=== PATIENT | female | born 1950 | race Caucasian/White ===

== ENCOUNTER 2020-08-03 13:27 | Outpatient (CLI) | payer MEDICARE, SELFPAY ==
--- NOTE | ~2020-08-03 | XR_ITS ---
EXAMINATION: XR chest 2V DATE: 08/03/2020 13:55 INDICATION: High-risk medicine use. Ulcerative colitis without complications. TECHNIQUE: Frontal and lateral views of the chest were obtained. COMPARISON: Chest single view 09/10/2004, CT abdomen and pelvis 08/03/2020 FINDINGS: A calcified left lung nodule and calcified hilar and mediastinal lymph nodes are consistent with old granulomatous disease. No pleural effusion or pneumothorax. The heart size is normal. There are prominent paracardial fat pads. IMPRESSION: 1. No acute cardiopulmonary disease. Reviewed, dictated and finalized at location A.
--- NOTE | ~2020-08-03 | CT_ITS ---
EXAMINATION: CT abdomen pelvis w con DATE: 08/03/2020 14:09 INDICATION: Left lower quadrant abdominal pain TECHNIQUE: Computed tomography (CT) of the abdomen and pelvis was performed with 100 cc Omnipaque 350 intravenous contrast. Automated exposure control and iterative reconstruction technique were employe d. Exam dose: 1377.24 mGy-cm total exam DLP. COMPARISON: 06/06/2005 CT abdomen FINDINGS: There is a calcified pulmonary granuloma in each lower lobe. There are calcified hepatic an d splenic granulomas. Heart size is mildly enlarged. No pericardial or pleural effusion. Hepatic steatosis. No hepatic space-occupying mass lesion is evident. The gallbladder is present. No bile duct or pancreatic duct dilatation. No pancreatic mass lesion or calcification. Normal splenic s ize. Normal morphology of the adrenal glands. No renal mass lesion is noted other than an approximately 1.3 cm exophytic cyst of the lower pole of the left kidney. No urinary tract calculus or hydroureteronephrosis is evident. There is atherosclerotic calcification of the abdominal aorta and branches but no abdominal aortic an eurysm. No intraperitoneal or retroperitoneal or pelvic mass lesion or adenopathy or ascites is evide nt. There is limited visualization of pelvic structures due to extensive streak artifact from bilateral h ip replacements. The urinary bladder is relatively evacuated and not optimally evaluated. Minimal diverticulosis of the colon. No bowel obstruction, bowel wall thickening, pneumatosis or intr aperitoneal free air. Diffuse osteopenia. Degenerative changes of the thoracic and lumbar spine including severe degenerati ve disc disease at L5-S1. IMPRESSION: Hepatic steatosis 1.3 cm exophytic cyst of lower pole of left kidney Minimal diverticulosis of the colon Reviewed, dictated and finalized at Location A. Reviewed, dictated and finalized at location B.
[2020-08-03 14:04] LABS: Estimated Glomerular Filt Rate 44
== END 2020-08-03 13:28 | disposition home or self-care (01) ==
PROVIDERS: PCP Internal Medicine; Visit Provider Internal Medicine Gastroenterology
DX: K51.90 Ulcerative colitis, unspecified, without complications (principal); M81.8 Other osteoporosis without current pathological fracture; K21.9 Gastro-esophageal reflux disease without esophagitis; R79.82 Elevated C-reactive protein (CRP); R10.32 Left lower quadrant pain; Z79.899 Other long term (current) drug therapy; K57.30 Diverticulosis of large intestine without perforation or abscess without bleeding; K76.0 Fatty (change of) liver, not elsewhere classified; N20.0 Calculus of kidney
CPT/HCPCS: 71046; 74177; Q9967

== ENCOUNTER 2020-10-03 19:38 | Emergency (ER) | payer MEDICARE, SELFPAY ==
--- NOTE | ~2020-10-03 | XR_ITS ---
EXAMINATION: XR chest 1V portable DATE: 10/03/2020 23:07 INDICATION: Shortness of breath and cough. COVID exposure. TECHNIQUE: frontal view of the chest was obtained. COMPARISON: Chest radiograph dated 08/03/2020 FINDINGS: The lungs remain clear with no focal airspace opacities, pulmonary edema, pleural effusion or pneumot horax. Calcified bilateral hilar and mediastinal lymph nodes consistent with old granulomatous diseas e. The cardiomediastinal silhouette is normal. IMPRESSION: 1. No acute cardiopulmonary disease. Reviewed, dictated and finalized at location A. K MAN
[2020-10-03 20:07] VITALS: BP 174/84; PULSE 99; RESP 17; TEMP 37.1; O2SAT 94
--- NOTE | 2020-10-03 20:10 | ECG_ITS ---
Measurements Intervals [place] Rate: 87 P: 55 IA: 188 QRS: 15 QRSD: 97 T: 31 QT: 352 QTc: 424 Interpretive Statements SINUS RHYTHM VOLTAGE CRITERIA FOR LVH BASELINE WANDER- II, III, AVL, AVF, V3-V6 BORDERLINE ECG Electronically Signed On 10-04-2020 7:03:53 SIGNAL REPAIRER by Amish Rodrigues D.O.
[2020-10-03 20:24] LABS: Basophils Percent Auto 0.2 % (0.2-1.2); Eosinophils Percent Auto 0.5 % (0-4.4); Hematocrit 35.6 % (37.0-47.0); Hemoglobin 11.7 g/dL (12.0-15.0); Immature Granulocyte Absolute 0.04 K/mm3 (0.00-0.031); Immature Granulocyte Percent A 0.7 % (0-0.5); Lymphocytes Absolute Auto 0.45 K/mm3 (0.9-3.2); Lymphocytes Percent Auto 7.6 % (18.3-44.2); Mean Corpuscular HGB Conc 32.9 g/dl (32-36); Mean Corpuscular Volume 97.3 fl (80-100); Mean Platelet Volume 8.4 fl (7.4-10.4); Monocytes Absolute Auto 0.4 K/mm3 (0.1-0.6); Monocytes Percent Auto 6.4 % (2.6-8.5); Neutrophils Percent Auto 84.6 % (45.5-73.1); Platelet Count Result 182 k/mm3 (150-375); Red Blood Count 3.66 M/mm3 (4.2-5.4); Red Cell Distribution Width 14.2 % (11.5-14.5); White Blood Count 5.9 K/mm3 (4.5-10.0)
[2020-10-03 20:53] LABS: Alanine Aminotransferase 39 U/L (4-35); Albumin Level 3.7 g/dL (3.5-5.1); Alkaline Phosphatase 111 U/L (38-126); Anion Gap 3 mmol/L (8-16); Aspartate Amino Transferase 52 U/L (14-36); Bilirubin,Total 0.2 mg/dL (0.2-1.3); Blood Urea Nitrogen 19 mg/dL (7-17); Calcium 8.5 mg/dL (8.4-10.2); Carbon Dioxide 27 mmol/L (22-30); Chloride 102 mmol/L (98-107); Estimated CRCL calculation 54 ml/min; Estimated Glomerular Filt Rate 55; Glucose 116 mg/dL (65-105); Potassium 4.8 mmol/L (3.4-5.0); Sodium 132 mmol/L (137-145)
[2020-10-03 22:34] VITALS: BP 142/79; PULSE 97; RESP 18; TEMP 37.2; O2SAT 95
[2020-10-03 23:11] VITALS: RESP 20
[2020-10-03 23:15] VITALS: BP 159/63; PULSE 95; RESP 19; O2SAT 91
--- NOTE | 2020-10-03 23:30 | ED.GENADULT ---
HPI - General Adult General Chief complaint: Fever Stated complaint: fever,covid exposure Time Seen by Provider: 10/03/20 22:59 Source: patient History of Present Illness HPI narrative: Patient is a 69 y/o female complaining of fever and cough starting 4-5 days ago. She states that her fever was up to 102.7. She took Tylenol, which helped with her fever. She has some dry cough and SOB. She had some midsternal chest pain 2 days ago, but no chest pain at this time. She states that her daughter who lives with her just tested positive for COVID. She had COVID test 2 days ago, but has not heard the results yet. Related Data Home Medications Medication Instructions Recorded Confirmed albuterol sulfate [Proventil HFA] INHALATION PRN 09/17/19 amitriptyline 25 mg PO HS 09/17/19 09/17/19 aspirin 81 mg PO DAILY 09/17/19 09/17/19 atenolol 50 mg PO DAILY 09/17/19 09/17/19 calcium carbonate [Calcium 600] 600 mg PO DAILY 09/17/19 09/17/19 conjugated estrogens [Premarin] mg 09/17/19 diclofenac sodium PO 09/17/19 fluticasone propionate [Flonase 1 spray INTRANASAL DAILY 09/17/19 09/22/19 Allergy Relief] folic acid 1 mg PO DAILY 09/17/19 09/17/19 lansoprazole 30 mg PO DAILY 09/17/19 09/17/19 mesalamine [Asacol HD] mg PO 09/17/19 djsligphvwcg-Av-bdkd-minerals tablet PO 09/17/19 [Multiple Vitamin, Womens] nitroglycerin [Nitrostat] 0.3 mg SUBLINGUAL Q5-15M PRN 09/17/19 09/17/19 tiotropium bromide [Spiriva with 1 cap INHALATION DAILY 09/17/19 09/17/19 HandiHaler] vitamin E 1,000 unit PO DAILY 09/17/19 09/22/19 Allergies Allergy/AdvReac Type Severity Reaction Status Date / Time fluconazole Allergy Mild UNKNOWN Verified 10/03/20 20:07 metronidazole Allergy Mild UNKNOWN Verified 10/03/20 20:07 Sulfa (Sulfonamide Allergy Mild UNKNOWN Verified 10/03/20 20:07 Antibiotics) ciprofloxacin Allergy Unknown RASH Verified 10/03/20 20:07 morphine AdvReac Unknown NAUSEA Verified 10/03/20 20:07 MEPERIDINE HCL AdvReac Unknown NAUSEA Uncoded 10/03/20 20:07 Review of Systems Constitutional: Constitutional: Denies chills, Reports fever(s), Denies headache(s) and Denies weakness Eyes: Eyes: Denies blurry vision ENT: Denies headache(s), Denies neck pain and Reports sore throat Cardiovascular: Cardiovascular: Reports chest pain (resolved) and Reports dyspnea Respiratory: Respiratory: Reports cough and Reports dyspnea Gastrointestinal: Gastrointestinal: Denies abdominal pain, Denies diarrhea, Denies nausea and Denies vomiting Genitourinary: Genitourinary: Denies hematuria and Denies dysuria Musculoskeletal: Musculoskeletal: Denies back pain and Denies neck pain Neurologic: Denies headache(s) and Denies weakness [facility] Past Medical History Medical History (Updated 10/04/20 @ 00:03 by Martine Woods MD) CAD (coronary artery disease) COPD (chronic obstructive pulmonary disease) History of Mohs micrographic surgery for skin cancer Hx of bladder cancer Hx of skin malignancy Hyperlipidemia Hypertension MICHAEL (iron deficiency anemia) TIA (transient ischemic attack) 1998 no residual Ulcerative colitis Surgical History Surgical History History of back surgery History of coronary artery stent placement 1998 x1 History of left hip replacement History of right hip replacement Hx of cardiac catheterization Hx of colonoscopy Hx of eye surgery Hx of total hysterectomy Social History Social History Smoking packs per day: 1 Smoking cigarettes per day: 20.0 Years smoked: 30 Smoking pack-years: 30.00 Smoking status: Former smoker Tobacco type: cigarettes Alcohol intake: current Substance use: never Gender identity (if verbalized by the patient): Female Exam Const: General: no acute distress and well developed Orientation/consciousness: oriented to person, oriented to place, oriented to time and patient oriented x3
[2020-10-04 00:26] LABS: Troponin I < 0.012 ng/mL (0.000-0.034)
== END 2020-10-04 00:30 | disposition home or self-care (01) ==
PROVIDERS: Emergency Medicine; Emergency Provider Emergency Medicine; PCP Internal Medicine
DX: J44.1 Chronic obstructive pulmonary disease with (acute) exacerbation (principal); Z20.828 Contact with and (suspected) exposure to other viral communicable diseases; I25.10 Atherosclerotic heart disease of native coronary artery without angina pectoris; Z85.828 Personal history of other malignant neoplasm of skin; Z85.51 Personal history of malignant neoplasm of bladder; E78.5 Hyperlipidemia, unspecified; I10 Essential (primary) hypertension; D50.9 Iron deficiency anemia, unspecified; Z86.73 Personal history of transient ischemic attack (TIA), and cerebral infarction without residual deficits; Z95.5 Presence of coronary angioplasty implant and graft; Z96.643 Presence of artificial hip joint, bilateral; Z87.891 Personal history of nicotine dependence; R94.31 Abnormal electrocardiogram [ECG] [EKG]
CPT/HCPCS: 36415; 71045; 80053; 84484; 85025; 87081; 87804; 87880; 93005; 99284

== ENCOUNTER 2020-10-07 11:02 | Inpatient (IN) | payer MEDICARE, SELFPAY ==
[2020-10-07] VITALS (11 sets, daily range): BP systolic 111–163; BP diastolic 69–85; PULSE 88–92; RESP 18–26; TEMP 36–37.2; O2SAT 89–96
--- NOTE | ~2020-10-07 | XR_ITS ---
XR abdomen NG/feed tube insert INDICATION: Evaluate G-tube position. TECHNIQUE: Limited KUB perform for evaluating NG tube . COMPARISON: 09/01/2004 FINDINGS: NG tube tip in the stomach. There are distended small bowel loops, likely ileus. There is bibasilar airspace disease. IMPRESSION: 1: NG tube tip in the stomach. 2: Bibasilar airspace disease may represent pneumonia or edema. 3: Nonspecific bowel gas pattern, possibly ileus. Reviewed, dictated and finalized at location A. BINDING MACHINE OPERATOR
--- NOTE | ~2020-10-07 | XR_ITS ---
XR chest 1V portable DATE: 10/19/2020 10:53 INDICATION: Covid pneumonia TECHNIQUE: Portable AP chest on 10/19/2020 at 1045 hours COMPARISON: 10/19/2020 portable AP chest at 0541 hours FINDINGS: ET tube in satisfactory position 4.5 cm above jonathan. NG tube extends into the stomach. Right upper extremity PIC catheter in superior vena cava. There are severe bilateral patchy consolidating pulmonary infiltrates involving both lungs extensivel y, increased in severity since 0541 hours today. No pleural effusion or pneumothorax is evident. IMPRESSION: Increasing severity of bilateral extensive patchy consolidating infiltrates since earlier today Reviewed, dictated and finalized at location B. RUMENT MAKER AND REPAIRER IMPRESSION: Increasing severity of bilateral extensive patchy consolidating inf iltrates since earlier today
--- NOTE | ~2020-10-07 | XR_ITS ---
EXAMINATION: XR chest 1V portable DATE: 10/18/2020 08:00 INDICATION: COVID-19 pneumonia. Cough. TECHNIQUE: A single frontal view of the chest was obtained. COMPARISON: Chest single view 10/16/2020 FINDINGS: There are interstitial and airspace opacities throughout the lungs bilaterally. No pleural effusion or pneumothorax. The heart size is normal. Calcified hilar and mediastinal lymph nodes are c onsistent with old granulomatous disease. A right upper extremity peripherally inserted central venou s catheter (PICC) is seen with tip in the superior vena cava. There are old healed left rib fractures . IMPRESSION: 1. Worsened diffuse lung disease, consistent with pneumonia. Reviewed, dictated and finalized at location A. CUTTER
--- NOTE | ~2020-10-07 | XR_ITS ---
EXAMINATION: XR chest 1V portable INDICATION: COVID 19 pneumonia TECHNIQUE: Portable AP chest at 0524 hours COMPARISON: 10/22/2020 FINDINGS: The endotracheal tube ends approximately 5.4 cm above the jonathan. The nasogastric tube is f ollowed as far as the stomach. Its tip is beyond the inferior margin of the radiograph. A right upper extremity PICC is followed to the midsuperior vena cava. Patchy bilateral airspace opacities persist throughout all lung zones without significant change. There is no pleural effusion or pneumothorax. The cardiomediastinal silhouette is stable. IMPRESSION: 1. Stable diffuse lung disease, consistent with pneumonia and/or pulmonary edema and/or acute respira tory distress syndrome (ARDS). Reviewed, dictated and finalized at location A. ADMINISTRATOR IMPRESSION: 1. Stable diffuse lung disease, consistent with pneumonia and/or pulmonary kimberly a and/or acute respiratory distress syndrome (ARDS).
--- NOTE | ~2020-10-07 | XR_ITS ---
EXAMINATION: XR chest port-a-cath/central INDICATION: Right internal jugular dialysis catheter insertion TECHNIQUE: Portable AP chest at 1230 hours COMPARISON: 0539 hours FINDINGS: A right internal jugular dialysis catheter has been inserted which ends with its tip in the distal superior vena cava. A right upper extremity PICC ends with its tip in the midsuperior vena ca va. The endotracheal tube ends approximately 3.7 cm above the jonathan. The nasogastric tube is followe d as far as the stomach. Its tip is beyond the inferior margin of the radiograph. Unchanged patchy ai rspace opacities persist in all lung zones. There is no pleural effusion or pneumothorax. IMPRESSION: 1. Right internal jugular dialysis catheter ending with its tip in the distal superior vena cava, oth erwise no change. Reviewed, dictated and finalized at location A. AULIC ELEVATOR CONSTRUCTOR IMPRESSION: 1. Right internal jugular dialysis catheter ending with its tip in the distal s uperior vena cava, otherwise no change.
--- NOTE | ~2020-10-07 | MR_ITS ---
EXAMINATION: MR brain/brain stem wo/w con DATE: 10/09/2020 18:32 INDICATION: Transient ischemic attack. Waterfall vision change. TECHNIQUE: Magnetic resonance imaging (MRI) of the brain and brainstem was performed without and with 20 mL MultiHance intravenous contrast. Sequences included sagittal and axial T1-weighted FSE, axial diffusion-weighted FS EPI, axial T2*-weighted GRE, axial T2-weighted FLAIR Propeller, and axial T2-we ighted Propeller. Postcontrast sequences included axial and coronal T1-weighted FSE. Apparent diffusi on coefficient (ADC) maps were created. COMPARISON: Head CT 10/09/2020, brain MRI 07/07/19 FINDINGS: There are scattered areas of nonspecific increased T2-weighted signal intensity in the cere bral white matter. There is no intracranial hemorrhage, acute infarction, or abnormal intracranial ma ss lesion. The ventricles are normal in size. The paranasal sinuses are clear. There are likely jamison es of ocular lens replacement surgeries. There is a right mastoid effusion. IMPRESSION: 1. Stable moderate nonspecific cerebral white matter disease, which likely represents chronic small v essel ischemic disease. Reviewed, dictated and finalized at location B. LIFT OPERATOR IMPRESSION: 1. Stable moderate nonspecific cerebral white matter disease, which likely repr esents chronic small vessel ischemic disease.
--- NOTE | ~2020-10-07 | XR_ITS ---
EXAMINATION: XR chest 1V portable DATE: 10/20/2020 05:51 INDICATION: COVID-19 pneumonia. TECHNIQUE: A single frontal view of the chest was obtained. COMPARISON: Chest single view 10/19/2020, CT abdomen and pelvis 08/03/2020 FINDINGS: There are airspace opacities in all lung zones bilaterally. There is a small left pleural e ffusion. No pneumothorax. The heart size is normal. The endotracheal tube tip is 4.8 cm above the car sandra. The nasogastric tube tip is beyond the inferior margin of the radiograph, but at least to the st omach. IMPRESSION: 1. Diffuse lung disease with worsening at the lung bases, consistent with pneumonia. 2. Small left pleural effusion. Reviewed, dictated and finalized at location A. D OPERATIONS TECHNICIAN IMPRESSION: 1. Diffuse lung disease with worsening at the lung bases, consistent with pneum onia. 2. Small left pleural effusion.
--- NOTE | ~2020-10-07 | XR_ITS ---
XR chest 1V portable 10/18/2020 10:20 Indication: Desaturations. Dyspnea. Procedure: AP portable chest Comparison: 10/18/2020 Findings: Endotracheal tube tip 2.9 cm above the jonathan. Patchy bilateral airspace consolidation unch anged, consistent with pneumonia. No significant pleural effusion. No pneumothorax. NG tube is presen t, distal aspect not visualized. Impression: 1: Stable patchy bilateral airspace disease, compatible with pneumonia. Reviewed, dictated and finalized at location A. E BLADE POLISHER Impression: 1: Stable patchy bilateral airspace disease, compatible with pneumonia.
--- NOTE | ~2020-10-07 | XR_ITS ---
EXAMINATION: XR chest 1V portable DATE: 10/19/2020 06:16 INDICATION: Intubation. COVID-19 pneumonia. TECHNIQUE: A single frontal view of the chest was obtained. COMPARISON: Chest single view 10/18/2020 FINDINGS: There are interstitial and airspace opacities throughout the lungs bilaterally. No pleural effusion or pneumothorax. The heart size is normal. Calcified hilar and mediastinal lymph nodes are c onsistent with old granulomatous disease. The endotracheal tube tip is 4.8 cm above the jonathan. The n asogastric tube tip is beyond the inferior margin of the radiograph, but at least to the stomach. A r ight upper extremity peripherally inserted central venous catheter (PICC) is seen with tip in the sup erior vena cava. IMPRESSION: 1. Diffuse lung disease with worsening on the right, consistent with pneumonia. Reviewed, dictated and finalized at location A. ITIAN TEACHER
--- NOTE | ~2020-10-07 | US_ITS ---
EXAMINATION: US carotid duplex BI DATE: 10/09/2020 14:33 INDICATION: Visual disturbance. Waterfall phenomenon. TECHNIQUE: Grayscale, color Doppler, and pulsed Doppler images of the cervical carotid arteries were obtained. The degree of vessel stenosis is placed in one of the following categories: normal, <50%, 5 0-69%, >=70% but less than near-occlusion, near-occlusion, or total occlusion. Note that percent sten osis relative to normal distal artery lumen diameter is indirectly measured from velocity measurement s as described by Cesar, et al. Radiology 2003; 229:340-346. COMPARISON: None. FINDINGS: RIGHT: The right common carotid artery (CCA) peak systolic velocity (PSV) is 79 cm/s. The right internal car otid artery (ICA) PSV is 60 cm/s. The right ICA end-diastolic velocity (EDV) is 26 cm/s. The right IC A/CCA PSV ratio is 0.8. Grayscale and color Doppler images yield an estimate of <50% diameter reducti on from plaque in the ICA. There is antegrade flow in the right vertebral artery. LEFT: The left CCA PSV is 73 cm/s. The left ICA PSV is 68 cm/s. The left ICA EDV is 18 cm/s. The left ICA/C CA PSV ratio is 0.9. Grayscale and color Doppler images yield an estimate of <50% diameter reduction from plaque in the ICA. There is antegrade flow in the left vertebral artery. IMPRESSION: 1. <50% stenosis in the right internal carotid artery. 2. <50% stenosis in the left internal carotid artery. Reviewed, dictated and finalized at location B. F OPHTHALMIC TECHNICIAN
--- NOTE | ~2020-10-07 | CT_ITS ---
EXAMINATION: CT brain wo con DATE: 10/09/2020 11:46 INDICATION: Visual disturbance. TECHNIQUE: Computed tomography (CT) of the head was performed without intravenous contrast. The mA wa s adjusted according to patient size. Iterative reconstruction technique was employed. The dose-lengt h product was 605.33 mGy-cm. COMPARISON: Brain MRI 07/07/19 FINDINGS: There are scattered areas of low attenuation in the cerebral white matter. There is no intr acranial hemorrhage, acute infarction, or abnormal intracranial mass lesion. The ventricles are steve l in size. The paranasal sinuses are clear. There are likely changes of ocular lens replacement surge say. There is a small right mastoid effusion. IMPRESSION: 1. Stable moderate nonspecific cerebral white matter disease, which likely represents chronic small v essel ischemic disease. Reviewed, dictated and finalized at location B. VERY MERCHANDISER IMPRESSION: 1. Stable moderate nonspecific cerebral white matter disease, which likely repr esents chronic small vessel ischemic disease.
--- NOTE | ~2020-10-07 | US_ITS ---
EXAMINATION: US renal BI DATE: 10/22/2020 14:09 INDICATION: Acute kidney injury. TECHNIQUE: Multiple ultrasound grayscale images of the kidneys were obtained. COMPARISON: CT abdomen and pelvis 08/03/2020 FINDINGS: The right kidney measures 9.4 x 4.9 x 5.0 cm. The left kidney measures 10.1 x 4.6 x 5.4 cm. The kidne ys demonstrate normal parenchymal echogenicity. There is no hydronephrosis. The bladder is decompress ed by a Deleon catheter. There is diffuse hepatic steatosis. IMPRESSION: 1. Normal kidney sizes. No hydronephrosis. 2. Diffuse hepatic steatosis. Reviewed, dictated and finalized at location A. STRIAL PSYCHOLOGY PROFESSOR
--- NOTE | ~2020-10-07 | XR_ITS ---
EXAMINATION: XR chest 1V portable DATE: 10/16/2020 13:20 INDICATION: Hypoxia. COVID-19 pneumonia. TECHNIQUE: A single frontal view of the chest was obtained. COMPARISON: Chest single view 10/07/2020 FINDINGS: There are heterogeneous airspace opacities throughout the lungs bilaterally. No pleural eff usion or pneumothorax. The heart size is normal. Calcified hilar and mediastinal lymph nodes are cons istent with old granulomatous disease. IMPRESSION: 1. Worsened diffuse lung disease, consistent with pneumonia. Reviewed, dictated and finalized at location A. OMIC DEVELOPMENT COORDINATOR
--- NOTE | ~2020-10-07 | XR_ITS ---
EXAMINATION: XR chest 1V portable INDICATION: COVID 19 pneumonia TECHNIQUE: Portable AP chest at 0539 hours COMPARISON: 10/23/2020 FINDINGS: The endotracheal tube ends approximately 6.9 cm above the jonathan. The nasogastric tube is f ollowed as far as the stomach. Its tip is beyond the inferior margin of the radiograph. A right upper extremity PICC ends with its tip in the superior vena cava. Patchy airspace opacities persist in all lung zones without significant change. There is no pleural effusion or pneumothorax. The heart size is normal. There appears to be a small amount of soft tissue gas tracking into the right neck. IMPRESSION: 1. Stable diffuse lung disease, consistent with pneumonia and/or pulmonary edema and/or acute respira tory distress syndrome (ARDS). 2. Possible soft tissue gas tracking into the right neck. Reviewed, dictated and finalized at location A. T CONTROL OPERATOR HELPER IMPRESSION: 1. Stable diffuse lung disease, consistent with pneumonia and/or pulmonary kimberly a and/or acute respiratory distress syndrome (ARDS). 2. Possible soft tissue gas tracking into the right neck.
--- NOTE | ~2020-10-07 | XR_ITS ---
EXAMINATION: XR chest ET placement DATE: 10/18/2020 09:53 INDICATION: Intubation. COVID-19 pneumonia. TECHNIQUE: A single frontal view of the chest was obtained. COMPARISON: Chest single view at 756 AM FINDINGS: There are patchy airspace opacities throughout the lungs bilaterally. No pleural effusion o r pneumothorax. The heart size is normal. Calcified hilar and mediastinal lymph nodes are consistent with old granulomatous disease. The endotracheal tube tip is 4.5 cm above the jonathan. The nasogastric tube tip is beyond the inferior margin of the radiograph, but at least to the stomach. A right upper extremity peripherally inserted central venous catheter (PICC) is seen with tip in the superior vena cava. IMPRESSION: 1. Stable diffuse lung disease, consistent with pneumonia. Reviewed, dictated and finalized at location A. MONIA BOX TENDER
--- NOTE | ~2020-10-07 | XR_ITS ---
XR chest 1V portable 10/24/2020 21:19 Indication: Respiratory arrest. Post code. Procedure: AP portable chest Comparison: Comparison to multiple prior studies sequentially, with oldest reviewed study dated 10/04. Findings: Diffuse bilateral airspace disease unchanged. Stable cardiomediastinal silhouette. Endotrac heal tube tip 5.8 cm above the jonathan. Right IJ central venous catheter tip in the SVC. Right subclav danielle PICC line tip in the SVC. NG tube passes into the stomach. No pneumothorax. No acute osseous abno rmality. Impression: 1: No significant change to diffuse bilateral airspace disease which may represent edema, pneumonia o r ARDS. Reviewed, dictated and finalized at location A. IO COUCH FRAME BUILDER Impression: 1: No significant change to diffuse bilateral airspace disease which may repres ent edema, pneumonia or ARDS.
--- NOTE | ~2020-10-07 | XR_ITS ---
XR chest 1V portable 10/07/2020 11:51 Indication: Covid. Shortness of breath. Procedure: AP portable chest Comparison: 10/03/2020 Findings: Patchy infiltrates of the left mid and lower lungs have developed. No pleural effusion. Rig ht lung clear. Heart size normal. No pneumothorax. Impression: 1: Interval development of patchy infiltrates of the left mid and lower lung zone, consistent with pn eumonia. Reviewed, dictated and finalized at location A. DESIGNER Impression: 1: Interval development of patchy infiltrates of the left mid and lower lung zo ne, consistent with pneumonia.
--- NOTE | ~2020-10-07 | US_ITS ---
EXAMINATION: US venous doppler [facility] DATE: 10/21/2020 14:12 INDICATION: Respiratory failure. TECHNIQUE: Grayscale ultrasound images without and with compression and Doppler ultrasound images of the bilateral lower extremity veins were obtained. COMPARISON: Ultrasound 08/10/2007 FINDINGS: The visualized portions of right common femoral vein, profunda (deep) femoral vein, femoral vein, pop liteal vein, peroneal veins, posterior tibial veins, and greater saphenous vein outflow are patent. The visualized portions of left common femoral vein, profunda femoral vein, femoral vein, popliteal v ein, peroneal veins, posterior tibial veins, and greater saphenous vein outflow are patent. IMPRESSION: 1. No deep venous thrombosis. Reviewed, dictated and finalized at location A. WARE QUALITY TEST ENGINEER
--- NOTE | ~2020-10-07 | XR_ITS ---
EXAMINATION: XR chest 1V portable DATE: 10/22/2020 04:19 INDICATION: COVID-19 pneumonia. TECHNIQUE: A single frontal view of the chest was obtained. COMPARISON: Single view 10/21/2020 FINDINGS: There are airspace opacities throughout the lungs bilaterally. No pleural effusion or pneum othorax. The heart size is normal. The endotracheal tube tip is 5.0 cm above the jonathan. The nasogast rocco tube tip is beyond the inferior margin of the radiograph, but at least to the stomach. A right up per extremity peripherally inserted central venous catheter (PICC) is seen with tip in the superior v anjelica cava. IMPRESSION: 1. Stable diffuse lung disease, consistent with pneumonia. Reviewed, dictated and finalized at location A. SHING RANGE OPERATOR
--- NOTE | ~2020-10-07 | XR_ITS ---
EXAMINATION: XR chest 1V portable DATE: 10/21/2020 06:33 INDICATION: COVID-19 pneumonia. TECHNIQUE: A single frontal view of the chest was obtained. COMPARISON: Chest single view 10/20/2020 FINDINGS: There are airspace opacities in all lung zones bilaterally. No pleural effusion or pneumoth orax. The heart size is normal. The endotracheal tube tip is 7.3 cm above the jonathan. The nasogastric tube tip is in the stomach. A right upper extremity peripherally inserted central venous catheter (P ICC) is seen with tip in the superior vena cava. IMPRESSION: 1. Stable diffuse lung disease, consistent with pneumonia. Reviewed, dictated and finalized at location A. ER POWDER BLENDER
--- NOTE | 2020-10-07 11:14 | ECG_ITS ---
Measurements Intervals [place] Rate: 91 P: 42 CO: 170 QRS: 18 QRSD: 94 T: 39 QT: 346 QTc: 427 Interpretive Statements SINUS RHYTHM VOLTAGE CRITERIA FOR LVH BORDERLINE ST-T WAVE ABNORMALITY- ANTERIOR LEADS BORDERLINE ECG Electronically Signed On 10-07-2020 16:15:10 RIVET HAMMER MACHINE OPERATOR by Amish Rodrigues D.O.
[2020-10-07 11:26] LABS: Basophils Percent Auto 0.2 % (0.2-1.2); Hematocrit 34.5 % (37.0-47.0); Hemoglobin 11.6 g/dL (12.0-15.0); Immature Granulocyte Absolute 0.07 K/mm3 (0.00-0.031); Immature Granulocyte Percent A 1.1 % (0-0.5); Lymphocytes Absolute Auto 0.58 K/mm3 (0.9-3.2); Lymphocytes Percent Auto 9.1 % (18.3-44.2); Mean Corpuscular HGB Conc 33.6 g/dl (32-36); Mean Corpuscular Hemoglobin 32.3 pg (26-34); Mean Corpuscular Volume 96.1 fl (80-100); Mean Platelet Volume 8.8 fl (7.4-10.4); Monocytes Absolute Auto 0.2 K/mm3 (0.1-0.6); Monocytes Percent Auto 3.5 % (2.6-8.5); Neutrophils Absolute Auto 5.5 K/mm3 (1.3-6.7); Neutrophils Percent Auto 86.1 % (45.5-73.1); Platelet Count Result 179 k/mm3 (150-375); Red Blood Count 3.59 M/mm3 (4.2-5.4); Red Cell Distribution Width 13.9 % (11.5-14.5); White Blood Count 6.4 K/mm3 (4.5-10.0)
[2020-10-07 11:40] LABS: Anion Gap 5 mmol/L (8-16); Blood Urea Nitrogen 19 mg/dL (7-17); Calcium 8.2 mg/dL (8.4-10.2); Carbon Dioxide 27 mmol/L (22-30); Chloride 103 mmol/L (98-107); Estimated CRCL calculation 52 ml/min; Estimated Glomerular Filt Rate 55; Glucose 91 mg/dL (65-105); Potassium 4.1 mmol/L (3.4-5.0); Sodium 135 mmol/L (137-145)
--- NOTE | 2020-10-07 11:46 | PC.NURSE ---
Patient oxygen saturation was 90% on room air, placed on 2 li NC at this time. Currently 94% on 2 Li NC.
--- NOTE | 2020-10-07 12:12 | ED.SOB ---
HPI - SOB/Dyspnea General Chief Complaint: Shortness of Breath/Dyspnea Stated Complaint: covid +, sob Time Seen by Provider: 10/07/20 11:30 Source: patient Mode of arrival: ambulatory Limitations: no limitations History of Present Illness HPI Narrative: This patient is a 70 year old female with history of COPD and ulcerative colitis who presents for evaluation of shortness of breath. She states she has been short of breath for 1 week. She was evaluated in the ER 4 days ago and she was found to be COVID +. She has been monitoring her oxygen at home, and she states her pulse oximeter at rest was 86% . She reports severe nonproductive cough. She denies chest pain. She has had a fever. On arrival to ER she was 89% on room air. She has been using her nebulizer every 4 hours. Related Data Home Medications Medication Instructions Recorded Confirmed albuterol sulfate [Proventil HFA] 2 puff INHALATION QID PRN 09/17/19 10/07/20 amitriptyline 25 mg PO HS 09/17/19 10/07/20 aspirin 81 mg PO DAILY 09/17/19 10/07/20 atenolol 50 mg PO BID 09/17/19 10/07/20 calcium carbonate [Calcium 600] 600 mg PO DAILY 09/17/19 10/07/20 conjugated estrogens [Premarin] 0.9 mg PO DAILY 09/17/19 diclofenac sodium 75 mg PO BID 09/17/19 10/07/20 fluticasone propionate [Flonase 1 spray INTRANASAL DAILY 09/17/19 10/07/20 Allergy Relief] folic acid 1 mg PO DAILY 09/17/19 10/07/20 lansoprazole 30 mg PO DAILY 09/17/19 10/07/20 mesalamine [Asacol HD] 1,600 mg PO TID 09/17/19 10/07/20 qagpvzujqssg-Wr-wsay-minerals 1 tablet PO DAILY 09/17/19 10/07/20 [Multiple Vitamin, Womens] nitroglycerin [Nitrostat] 0.3 mg SUBLINGUAL Q5-15M PRN 09/17/19 10/07/20 tiotropium bromide [Spiriva with 1 cap INHALATION DAILY 09/17/19 10/07/20 HandiHaler] vitamin E 1,000 unit PO DAILY 09/17/19 10/07/20 estazolam [Prosom] 1 mg PO HS 10/07/20 10/07/20 Allergies Allergy/AdvReac Type Severity Reaction Status Date / Time fluconazole Allergy Mild UNKNOWN Verified 10/07/20 17:36 metronidazole Allergy Mild UNKNOWN Verified 10/07/20 17:36 Sulfa (Sulfonamide Allergy Mild UNKNOWN Verified 10/07/20 17:36 Antibiotics) ciprofloxacin Allergy Unknown RASH Verified 10/07/20 17:36 meperidine AdvReac Unknown Nausea Verified 10/07/20 17:36 morphine AdvReac Unknown NAUSEA Verified 10/07/20 17:36 Review of Systems Review of Systems: All systems reviewed & are unremarkable except as noted in HPI and below Constitutional: Constitutional: Denies chills and Denies fever(s) Cardiovascular: Cardiovascular: Denies chest pain Respiratory: Respiratory: Denies cough, Reports dyspnea and Reports wheezing PMFSH Past Medical History Medical History (Updated 10/07/20 @ 19:19 by Abby Deal MD) CAD (coronary artery disease) COPD (chronic obstructive pulmonary disease) History of Mohs micrographic surgery for skin cancer Hx of bladder cancer Hx of skin malignancy Hyperlipidemia Hypertension MICHAEL (iron deficiency anemia) TIA (transient ischemic attack) 1998 no residual Ulcerative colitis Surgical History Surgical History History of back surgery History of coronary artery stent placement 1998 x1 History of left hip replacement History of right hip replacement Hx of cardiac catheterization Hx of colonoscopy Hx of eye surgery Hx of total hysterectomy Family History Family History (Updated 10/07/20 @ 18:25 by Denia Ferguson RN) Mother Cerebrovascular accident Social History Social History Smoking packs per day: 1 Smoking cigarettes per day: 20.0 Years smoked: 30 Smoking pack-years: 30.00 Smoking status: Former smoker Tobacco type: cigarettes Second hand tobacco smoke exposure: No Alcohol intake: unknown Substance use: never Gender identity (if verbalized by the patient): Female Spiritual care concerns: No Exam Const: General: cade
[2020-10-07 12:26] LABS: Alveolar/Arterial O2 Gradient 47.8 mmHg; Base Excess ABG -0.2 mEq/l (+/-2.0); Carboxyhemoglobin 0.3 % THb (0-2.0); Device ROOM AIR; Fractional Inspired Oxygen 21 %; HCO3 ABG 23.6 mEq/l (22.0-26.0); Methemoglobin ABG 0.3 %THb (0-1.5); Modified Allen's Test Pass; Oxygen Content ABG 14.6 %vol (16.0-22.0); Oxygen Saturation ABG 91.9 % (95.0-100.0); Oxyhemoglobin 90.3 % THb (90.0-100.0); PCO2 ABG 35.4 mmHg (35.0-45.0); PO2 ABG 59.5 mmHg (80.0-100.0); PO2 FiO2 Ratio Arterial Blood 2.83 %; Reduced Hemoglobin 9.1 %THb (0-5.0); Site Drawn RIGHT RADIAL; Total Hemoglobin 11.5 g/dL (12.0-18.0); pH ABG 7.441 (7.350-7.450)
[2020-10-07 12:50] LABS: CRP 15.7 mg/dL (<1.0)
[2020-10-07 14:57] LABS: Alanine Aminotransferase 42 U/L (4-35); Albumin Level 3.7 g/dL (3.5-5.1); Alkaline Phosphatase 104 U/L (38-126); Aspartate Amino Transferase 81 U/L (14-36); Bilirubin,Total 0.4 mg/dL (0.2-1.3)
--- NOTE | 2020-10-07 18:24 | ADMGEN ---
This patient, Mae Bravo, was admitted to [facility] Surg Room 302-01. Patient/family oriented to hospital policies and general routines including ID bracelet, bed and alarms, visiting hours, pain management, procedures, bathroom and other care routines, personal items, smoking policy, room service/diet, and visiting hours. Information on how to activate the Rapid Response Team has been discussed. Patient/Family are encouraged to report perceived risks to care and to ask questions if they do not understand what they are told or what they should do.
[2020-10-07 22:49] LABS: Alanine Aminotransferase 45 U/L (4-35)
[2020-10-07] MEDS: REMDESIVIR 200 MG/NS 250 ML 200 MG/250 ML BAG 250 MG IVPB (23:31)
[2020-10-08] VITALS (10 sets, daily range): BP systolic 106–142; BP diastolic 54–67; PULSE 69–88; RESP 16–22; TEMP 36–36.5; O2SAT 91–96
--- NOTE | 2020-10-08 00:18 | PM.IMHP ---
H&P: HPI History of Present Illness Date/Time: 10/07/20 9022 Chief complaint: covid pneumonia/hypoxia Narrative: Mae Bravo is a 70 year old female who has a history of COPD. The patient has been using her scheduled inhalers as usual. The patient does have a pulse ox machine at home. The patient stated that her whole family has been sick. She lives with her daughter and her son-in-law and their children. They have all been sick. They all went got tested for COVID together. Her daughter came back positive and the patient came back positive 4 days ago. The rest of the family have not gotten the results as of yet. To the emergency room here on the 03 of October and she is complaining of a fever and cough for for 5 days. Her fever was up to 102.7 she took Tylenol not help. She also had an some chest pain and at that time she had a COVID test that was 2 days prior to that. Since then the patient has gotten results and was positive. The patient had been started on Decadron at that time orally. The patient does not wear oxygen at home and stated that she recently dropped down in the 80s during the night last night. However she did not come to the emergency room at that time. Again today her oxygen levels dropped down in the 80s. Oxygen was applied at 2 L per nasal cannula when she came to the emergency room. Development of patchy infiltrates of the left mid and lower lung zones consistent with pneumonia. Patient was able to talk in full sentences but had to take her time talking. I suggested that the patient try prone position however she stated that she not able to do that due to her back problems low at 59.5 otherwise normal. Liver enzymes are mildly elevated. Patient was admitted observation status on date of service 08/07/2020 Review of Systems Review of Systems: All systems reviewed & are unremarkable except as noted in HPI and below Constitutional: Constitutional: Reports as per HPI and Reports no additional constitutional complaints Eyes: Eyes: Reports as per HPI and Reports no additional eye complaints ENT: Reports system reviewed and no additional complaints, except as documented and Reports Normal hearing present Cardiovascular: Cardiovascular: Reports no additional cardiovascular complaints Respiratory: Respiratory: Reports no additional respiratory complaints and Reports no additional respiratory complaints Gastrointestinal: Gastrointestinal: Reports as per HPI and Reports no additional gastrointestinal complaints Musculoskeletal: Musculoskeletal: Reports no additional musculoskeletal complaints Integumentary/Breasts: Skin/Breast: Reports system reviewed and no additional complaints, except as docu and Reports as per HPI Neurologic: Reports system reviewed and no additional complaints, except as documented, Reports as per HPI and Reports Normal hearing present Psychiatric: Psychiatric: Reports no additional psychiatric complaints and Reports as per HPI Endocrine: Endocrine: Reports no additional endocrine complaints Hematologic/Lymphatic: Hematologic/Lymphatic: Reports no additional hematologic/lymphatic complaints Allergic/Immunologic: Allergic/Immunologic: Reports no additional allergic/immunologic complaints [facility] Past Medical History Medical History (Updated 10/08/20 @ 00:32 by Jackie Lovett NP) CAD (coronary artery disease) COPD (chronic obstructive pulmonary disease) History of Mohs micrographic surgery for skin cancer Hx of bladder cancer Hx of skin malignancy Hyperlipidemia Hypertension MICHAEL (iron deficiency anemia) TIA (transient ischemic attack) 1998 no residual Ulcerative colitis Surgical History Surgical History (Updated 10/08/20 @ 00:25 by Jackie Lovett NP) History of back surgery History of coronary artery stent placement 1998 x1 LAD History of left hip replacement History of right hip replacement Hx of cardiac catheterization Hx of colonoscopy Hx of eye surgery Left eyel
[2020-10-08] MEDS: AMITRIPTYLINE HCL 25 MG TABLET PO ×2 (00:58→21:03)
[2020-10-08] MEDS: atenoloL 50 MG TABLET PO ×3 (00:59→21:33)
[2020-10-08] MEDS: ALBUTEROL SULFATE (*SP) AEROSOL 1 PUFF 2 PUFF INHALATION ×4 (03:57→19:38)
[2020-10-08 06:28] LABS: Alanine Aminotransferase 38 U/L (4-35); Albumin Level 3.1 g/dL (3.5-5.1); Alkaline Phosphatase 80 U/L (38-126); Anion Gap 7 mmol/L (8-16); Aspartate Amino Transferase 77 U/L (14-36); Bilirubin,Total 0.6 mg/dL (0.2-1.3); Blood Urea Nitrogen 17 mg/dL (7-17); Calcium 7.7 mg/dL (8.4-10.2); Carbon Dioxide 22 mmol/L (22-30); Chloride 103 mmol/L (98-107); Estimated CRCL calculation 58 ml/min; Estimated Glomerular Filt Rate > 60; Glucose 90 mg/dL (65-105); Magnesium 2.1 mg/dL (1.6-2.3); Potassium 4.5 mmol/L (3.4-5.0); Sodium 132 mmol/L (137-145)
[2020-10-08 06:34] LABS: CRP 26.2 mg/dL (<1.0)
[2020-10-08] MEDS: ASPIRIN 81 MG ENTERIC TABLET PO (08:33)
[2020-10-08] MEDS: FOLIC ACID 1 MG TABLET PO (08:34)
[2020-10-08] MEDS: VITAMIN E 1,000 UNIT CAPSULE 1000 UNIT PO (08:34)
[2020-10-08] MEDS: MESALAMINE 400 MG DELAYED RELEASE CAPSULE 1600 MG PO ×3 (08:36→16:57)
[2020-10-08] MEDS: CALCIUM CARBONATE (OSCAL) 500 MG TABLET PO (08:37)
[2020-10-08] MEDS: DICLOFENAC SOD 75 MG TABLET.EC PO ×2 (08:38→16:57)
[2020-10-08] MEDS: THERAPEUTIC MULTIVITAMINS/MINERALS TAB (*BKC) 1 TABLET PO (08:38)
[2020-10-08] MEDS: DEXAMETHASONE 2 MG TABLET 6 MG PO (08:38)
[2020-10-08] MEDS: PANTOPRAZOLE 40 MG TABLET PO (08:38)
[2020-10-08] MEDS: FLUTICASONE PROPIONATE 0.05% NA SPR 16 GM BTL (*BKC) 1 SPRAY NASAL (08:38)
[2020-10-08 09:00] LABS: Basophils Percent Auto 0.2 % (0.2-1.2); Hematocrit 33.6 % (37.0-47.0); Hemoglobin 10.8 g/dL (12.0-15.0); Immature Granulocyte Absolute 0.05 K/mm3 (0.00-0.031); Immature Granulocyte Percent A 1.1 % (0-0.5); Lymphocytes Absolute Auto 0.49 K/mm3 (0.9-3.2); Lymphocytes Percent Auto 10.6 % (18.3-44.2); Mean Corpuscular HGB Conc 32.1 g/dl (32-36); Mean Corpuscular Hemoglobin 31.3 pg (26-34); Mean Corpuscular Volume 97.4 fl (80-100); Monocytes Absolute Auto 0.2 K/mm3 (0.1-0.6); Monocytes Percent Auto 5.2 % (2.6-8.5); Neutrophils Absolute Auto 3.8 K/mm3 (1.3-6.7); Neutrophils Percent Auto 82.9 % (45.5-73.1); Platelet Count Result 169 k/mm3 (150-375); Red Blood Count 3.45 M/mm3 (4.2-5.4); Red Cell Distribution Width 14.4 % (11.5-14.5); White Blood Count 4.6 K/mm3 (4.5-10.0)
--- NOTE | 2020-10-08 12:58 | PM.IMPN ---
Progress Note: A&P Assessment and Plan (1) Pneumonia due to COVID-19 virus: Code(s): U07.1 - COVID-19; J12.89 - Other viral pneumonia Status: Acute Assessment and Plan: She tested positive for COVID-19 1 week ago and symptoms started 1-2 days after Thanksgiving. She is currently hypoxic and requiring 2 liters of oxygen at rest and 5 liters with activity. Continue dexamethasone (day 6 - initiated 10/03). Continue remdesivir (day 2/ - initiated 10/07). LFTs are mildly elevated. CRP markedly elevated at 26.2. Trend acute phase reactants. Continue supportive care with bronchodilators, antipyretics as needed, and will add mucinex. Continue supplemental oxygen as needed to maintain oxygen saturation >90%. Wean as tolerated. (2) Acute respiratory failure with hypoxia: Code(s): J96.01 - Acute respiratory failure with hypoxia Status: Acute Assessment and Plan: Secondary to COVID-19 pneumonia. Continue treatment of COVID per plan noted above. Continue supplemental oxygen as needed to maintain pulse oxygenation >90%. Wean as tolerated. (3) Hypertension: Code(s): I10 - Essential (primary) hypertension Status: Chronic Assessment and Plan: Blood pressures are well-controlled. Most recent BP was 135/54. Continue atenolol. (4) COPD (chronic obstructive pulmonary disease): Code(s): J44.9 - Chronic obstructive pulmonary disease, unspecified Status: Chronic Assessment and Plan: Chronic. She does have some wheezing. Continue bronchodilators and tiotropium. (5) CAD (coronary artery disease): Code(s): I25.10 - Atherosclerotic heart disease of [place] coronary artery without angina pectoris Status: Chronic Assessment and Plan: She is not having any chest pain. Continue ASA and atenolol. (6) Ulcerative colitis: Code(s): K51.90 - Ulcerative colitis, unspecified, without complications Status: Chronic Assessment and Plan: Chronic. Continue mesalamine. (7) Anemia: Code(s): D64.9 - Anemia, unspecified Status: Acute Assessment and Plan: Chronic. Will continue to monitor. Will check iron studies, vitamin B12, and folate. Continue to monitor. Transfuse as needed to maintain Hb >7. Subjective Date/time seen: 10/08/20 12:58 Mrs. Bravo is a 70 y.o. female with PMH significant for COPD, CAD, HLD, HTN, MICHAEL, ulcerative colitis, and TIA who is seen in follow-up for COVID-19 pneumonia. She reports dyspnea and increased oxygen requirements on exertion. She is requiring 5 liters per nasal cannula with activity. She reports a dry, hacking, non-productive cough. She notes intermittent sweats and chills. She is not having any chest pain or pleuritic pain. She reports that stools are chronically loose due to ulcerative colitis. Her mouth feels dry. She has no other complaints today. I attempted to call the patient's daughter and left a voicemail. Review of Systems Review of Systems: All systems reviewed & are unremarkable except as noted in HPI and below Exam Narrative: Exam Narrative: General: Very pleasant, well-developed and obese 70 y.o. female who is sitting in the chair at the bedside in no acute distress. HEENT: Normocephalic and atraumatic. Sclerae anicteric. EOMI. Oral mucosa tacky. Neck: Supple without lymphadenopathy or masses. Cardiac: Regular rate and rhythm. S1 and S2 normal. No murmur appreciated. Lungs: On 2 liters per nasal cannula. Respirations are even and non-labored. Lungs with diminished breath sounds, some expiratory wheezes bilaterally. Abdomen: Bowel sounds are normoactive. Abdomen is soft, non-distended, and non-tender. Extremities: No lower extremity edema or calf tenderness. DP and PT 2+ bilaterally. Neurological: Alert. CN II-XII intact. Upper and lower extremity strength intact and symmetric 5/5. Speech is clear. Skin: Warm and dry. Psychiatric: Judgment and insight
[2020-10-08] MEDS: guaiFENesin 12 HR 600 MG TABCR 1200 MG PO (21:15)
[2020-10-08] MEDS: ENOXAPARIN 40 MG/0.4 ML SYRINGE SUB-Q (21:33)
[2020-10-08] MEDS: REMDESIVIR 100 MG/NS 250 ML 100 MG/250 ML BAG 250 MG IVPB (21:33)
[2020-10-09] VITALS (17 sets, daily range): BP systolic 114–156; BP diastolic 59–72; PULSE 58–77; RESP 18–20; TEMP 36.2–37.1; O2SAT 90–94
--- NOTE | 2020-10-09 | ECHO_ITS ---
Patient Info Name: Mae Bravo Age: 70 years : 1950 Gender: Female Ht: 62 in Wt: 240 lbs BSA: 2.25 m2 HR: 66 bpm BP: 140 / 90 mmHg Technical Quality: Good Exam Date: 10/09/2020 2:07 PM Exam Location: [facility] Pulmonary Patient Status: Inpatient Admit Date: 10/08/2020 Staff Ordering Physician: Nat Siddiqi PA-C Lens Mounter: Don Frausto RDCS, RT Attending Provider: Nat Siddiqi PA-C Referring Physician: Devang LOZADA; Exam Type: CA echo doppler color flow Study Info Indications - WATERFALL EFFECT, HX OF TIA Complete two-dimensional, color flow and Doppler transthoracic echocardiogram is performed. Summary 1. Complete two-dimensional, color flow and Doppler transthoracic echocardiogram is performed. 2. Left ventricular chamber dimension is normal. 3. Left ventricular systolic function is normal, estimated at 55-60%. 4. The left ventricular diastolic function is grade I diastolic dysfunction. 5. E/e' 13 is mildly elevated. 6. Global longitudinal strain is abnormal at -15.8%. 7. There is moderate aortic valve sclerosis. 8. There is mild to moderate aortic valve stenosis with a peak velocity of 221 cm/s, mean gradient of 11 mmHg, and aortic valve area of 1.5 cm2. 9. There is mild to moderate aortic valve regurgitation. 10. The mitral valve has mildly calcified annulus. 11. Dilated inferior vena cava with >50% collapse upon inspiration consistent with elevated right atrial pressure, 10 mmHg. 12. There is trivial pericardial effusion. Left Ventricle E/e' 13 is mildly elevated. Global longitudinal strain is abnormal at -15.8%. Left ventricular chamber dimension is normal. Left ventricular systolic function is normal, estimated at 55-60%. The left ventricular diastolic function is grade I diastolic dysfunction. Right Ventricle Right ventricular chamber dimension is normal. Right ventricular systolic function is normal. Left Atria Left atrial chamber dimension is normal. Right Atria Right atrial chamber dimension is normal. Aortic Valve The aortic valve is trileaflet. There is moderate aortic valve sclerosis. There is mild to moderate aortic valve stenosis with a peak velocity of 221 cm/s, mean gradient of 11 mmHg, and aortic valve area of 1.5 cm2. There is mild to moderate aortic valve regurgitation. Pulmonic Valve There is no pulmonic regurgitation. Mitral Valve The mitral valve has mildly calcified annulus. There is no mitral valve stenosis. There is no mitral valve regurgitation. Tricuspid Valve There is no tricuspid valve regurgitation. Pericardium/Pleural There is trivial pericardial effusion. Inferior Vena Cava Dilated inferior vena cava with >50% collapse upon inspiration consistent with elevated right atrial pressure, 10 mmHg. Aorta The aortic root size at the sinus of Valsalva is normal. Left Ventricular Outflow Tract Name Value Normal LVOT 2D LVOT Diameter 2.0 cm LVOT Doppler LVOT Peak Gradient 4 mmHg LVOT Mean Gradient 3 mmHg LVOT VTI 26 cm
[2020-10-09] MEDS: ALBUTEROL SULFATE (*SP) AEROSOL 1 PUFF 2 PUFF INHALATION ×5 (01:25→22:59)
[2020-10-09] MEDS: guaiFENesin/DEXTROMETHORPHAN 10 ML UDC 5 ML PO ×3 (03:58→21:15)
[2020-10-09 06:50] LABS: Basophils Percent Auto 0.3 % (0.2-1.2); Hematocrit 31.8 % (37.0-47.0); Hemoglobin 10.6 g/dL (12.0-15.0); Immature Granulocyte Absolute 0.04 K/mm3 (0.00-0.031); Immature Granulocyte Percent A 1.1 % (0-0.5); Lymphocytes Absolute Auto 0.35 K/mm3 (0.9-3.2); Lymphocytes Percent Auto 9.6 % (18.3-44.2); Mean Corpuscular HGB Conc 33.3 g/dl (32-36); Mean Corpuscular Hemoglobin 31.3 pg (26-34); Mean Corpuscular Volume 93.8 fl (80-100); Mean Platelet Volume 9.2 fl (7.4-10.4); Monocytes Absolute Auto 0.3 K/mm3 (0.1-0.6); Monocytes Percent Auto 7.4 % (2.6-8.5); Neutrophils Percent Auto 81.6 % (45.5-73.1); Platelet Count Result 189 k/mm3 (150-375); Red Blood Count 3.39 M/mm3 (4.2-5.4); Red Cell Distribution Width 13.5 % (11.5-14.5); White Blood Count 3.6 K/mm3 (4.5-10.0)
[2020-10-09 08:13] LABS: Alanine Aminotransferase 40 U/L (4-35); Albumin Level 3.1 g/dL (3.5-5.1); Alkaline Phosphatase 101 U/L (38-126); Anion Gap 5 mmol/L (8-16); Aspartate Amino Transferase 66 U/L (14-36); Bilirubin,Total 0.4 mg/dL (0.2-1.3); Blood Urea Nitrogen 22 mg/dL (7-17); CRP 32.1 mg/dL (<1.0); Calcium 8.2 mg/dL (8.4-10.2); Carbon Dioxide 27 mmol/L (22-30); Chloride 103 mmol/L (98-107); Creatine Kinase 143 U/L (30-135); Estimated CRCL calculation 52 ml/min; Estimated Glomerular Filt Rate 55; Glucose 111 mg/dL (65-105); Lactate Dehydrogenase 873 U/L (313-618); Magnesium 2.4 mg/dL (1.6-2.3); Potassium 4.6 mmol/L (3.4-5.0); Sodium 135 mmol/L (137-145)
[2020-10-09 08:16] LABS: Iron 29 ug/dL (37-170)
[2020-10-09] MEDS: FLUTICASONE PROPIONATE 0.05% NA SPR 16 GM BTL (*BKC) 1 SPRAY NASAL (08:23)
[2020-10-09] MEDS: PANTOPRAZOLE 40 MG TABLET PO (08:24)
[2020-10-09] MEDS: VITAMIN E 1,000 UNIT CAPSULE 1000 UNIT PO (08:24)
[2020-10-09] MEDS: ASPIRIN 81 MG ENTERIC TABLET PO (08:24)
[2020-10-09] MEDS: THERAPEUTIC MULTIVITAMINS/MINERALS TAB (*BKC) 1 TABLET PO (08:24)
[2020-10-09] MEDS: MESALAMINE 400 MG DELAYED RELEASE CAPSULE 1600 MG PO ×3 (08:24→17:42)
[2020-10-09] MEDS: CALCIUM CARBONATE (OSCAL) 500 MG TABLET PO (08:24)
[2020-10-09] MEDS: guaiFENesin 12 HR 600 MG TABCR 1200 MG PO ×2 (08:24→21:15)
[2020-10-09] MEDS: DICLOFENAC SOD 75 MG TABLET.EC PO ×2 (08:24→17:43)
[2020-10-09 08:25] LABS: Percent Iron Saturation 12 % (20-50)
[2020-10-09] MEDS: DEXAMETHASONE 2 MG TABLET 6 MG PO (08:25)
[2020-10-09] MEDS: atenoloL 50 MG TABLET PO ×2 (08:26→21:15)
[2020-10-09] MEDS: FOLIC ACID 1 MG TABLET PO (08:27)
[2020-10-09] MEDS: ENOXAPARIN 40 MG/0.4 ML SYRINGE SUB-Q ×2 (08:27→21:16)
[2020-10-09 08:36] LABS: Folic Acid > 20.0 ng/mL (2.76->20); Vitamin B12 > 1000.0 pg/mL (239-931)
--- NOTE | 2020-10-09 10:48 | PC.NURSE ---
Patient states left eye seeing a water fall effect. Patient states once it was a optical migraine, the other it was a TIA. Nat VALENTE notified.
--- NOTE | 2020-10-09 11:12 | PM.IMPN ---
Progress Note: A&P Assessment and Plan (1) Pneumonia due to COVID-19 virus: Code(s): U07.1 - COVID-19; J12.89 - Other viral pneumonia Status: Acute Assessment and Plan: She tested positive for COVID-19 with symptoms starting approximately 1 week prior to admission. She is currently hypoxic with increased oxygen requirements today. Continue dexamethasone (day 7 - initiated 10/03). Continue remdesivir (day 3/5 - initiated 10/07). LFTs are mildly elevated but stable. CRP has increased today to 32.1. Trend acute phase reactants. Continue supportive care with bronchodilators, antipyretics as needed, and mucinex. Continue supplemental oxygen as needed to maintain oxygen saturation >90%. Wean as tolerated. (2) Acute respiratory failure with hypoxia: Code(s): J96.01 - Acute respiratory failure with hypoxia Status: Acute Assessment and Plan: Secondary to COVID-19 pneumonia. Continue treatment of COVID per plan noted above. Continue supplemental oxygen as needed to maintain pulse oxygenation >90%. Wean as tolerated. Oxygen requirements have increased today. (3) Hypertension: Code(s): I10 - Essential (primary) hypertension Status: Chronic Assessment and Plan: Blood pressures are reasonably controlled with a few elevated readings. Most recent BP was 156/72. Continue atenolol. (4) COPD (chronic obstructive pulmonary disease): Code(s): J44.9 - Chronic obstructive pulmonary disease, unspecified Status: Chronic Assessment and Plan: Chronic. She does have wheezing and she is on dexamethasone. Continue albuterol and tiotropium. (5) CAD (coronary artery disease): Code(s): I25.10 - Atherosclerotic heart disease of [place] coronary artery without angina pectoris Status: Chronic Assessment and Plan: Continue ASA and atenolol. (6) Ulcerative colitis: Code(s): K51.90 - Ulcerative colitis, unspecified, without complications Status: Chronic Assessment and Plan: Chronic. Continue mesalamine. (7) Anemia: Code(s): D64.9 - Anemia, unspecified Status: Acute Assessment and Plan: Chronic. Hb is stable on labs 10/09. Will continue to monitor. Iron studies demonstrate anemia of chronic disease. Vitamin B12 and folate are sufficient. Continue to monitor. Transfuse as needed to maintain Hb >7. (8) Ocular migraine: Code(s): G43.109 - Migraine with aura, not intractable, without status migrainosus Status: Chronic Assessment and Plan: Her episode seems consistent with occular migraine. I will order CT brain, carotid doppler US, monitor on telemetry, and order echocardiogram but I suspect that this was due to ocular migraine. Continue to monitor. Subjective Date/time seen: 10/09/20 11:12 Mrs. Bravo is a 70 y.o. female with PMH significant for COPD, CAD, HLD, HTN, MICHAEL, ulcerative colitis, and TIA who is seen in follow-up for COVID-19 pneumonia. She reports that she had an episode she describes as waterfall effect in the left eye - further describes that it is like looking at mercury in a letter c . She has a prior hx of this phenomenon with 4-5 prior occurrences. The initial episode was diagnose as a TIA and subsequent episodes were diagnosed as occular migraines. The episode lasted 15 minutes and resolved completely. She has no other associated symptoms including no speech change, lateralizing weakness, confusion, or sensory deficits/changes. She does feel short of breath today, worse with activity. Oxygen requirements increased overnight to 4 liters. Overall, she thinks she feels a bit better. She is not having any chest pain or pleuritic pain. She is not having any nausea, vomiting, or abdominal pain. She denies palpitations. Review of Systems Review of Systems: All systems reviewed & are unremarkable except as noted in HPI and below Exam Narrative: Exam Narrative: Ge
[2020-10-09] MEDS: REMDESIVIR 100 MG/NS 250 ML 100 MG/250 ML BAG 250 MG IVPB (21:15)
[2020-10-09] MEDS: AMITRIPTYLINE HCL 25 MG TABLET PO (21:15)
[2020-10-10] VITALS (9 sets, daily range): BP systolic 141–161; BP diastolic 59–78; PULSE 61–77; RESP 18–20; TEMP 36.5–37.1; O2SAT 90–93
[2020-10-10] MEDS: ALBUTEROL SULFATE (*SP) AEROSOL 1 PUFF 2 PUFF INHALATION ×4 (02:34→22:14)
[2020-10-10] MEDS: ACETAMINOPHEN 325 MG TABLET 650 MG PO (05:00)
[2020-10-10 06:16] LABS: Basophils Percent Auto 0.2 % (0.2-1.2); Hematocrit 31.5 % (37.0-47.0); Hemoglobin 10.5 g/dL (12.0-15.0); Immature Granulocyte Absolute 0.05 K/mm3 (0.00-0.031); Immature Granulocyte Percent A 0.8 % (0-0.5); Lymphocytes Absolute Auto 0.55 K/mm3 (0.9-3.2); Lymphocytes Percent Auto 8.3 % (18.3-44.2); Mean Corpuscular HGB Conc 33.3 g/dl (32-36); Mean Corpuscular Hemoglobin 30.9 pg (26-34); Mean Corpuscular Volume 92.6 fl (80-100); Mean Platelet Volume 9.1 fl (7.4-10.4); Monocytes Absolute Auto 0.4 K/mm3 (0.1-0.6); Monocytes Percent Auto 6.6 % (2.6-8.5); Neutrophils Absolute Auto 5.6 K/mm3 (1.3-6.7); Neutrophils Percent Auto 84.1 % (45.5-73.1); Platelet Count Result 234 k/mm3 (150-375); Red Cell Distribution Width 13.3 % (11.5-14.5); White Blood Count 6.6 K/mm3 (4.5-10.0)
[2020-10-10 06:51] LABS: Alanine Aminotransferase 38 U/L (4-35); Albumin Level 3.1 g/dL (3.5-5.1); Alkaline Phosphatase 99 U/L (38-126); Anion Gap 5 mmol/L (8-16); Aspartate Amino Transferase 64 U/L (14-36); Bilirubin,Total 0.3 mg/dL (0.2-1.3); Blood Urea Nitrogen 25 mg/dL (7-17); CRP 15.6 mg/dL (<1.0); Calcium 8.2 mg/dL (8.4-10.2); Carbon Dioxide 26 mmol/L (22-30); Chloride 104 mmol/L (98-107); Creatine Kinase 116 U/L (30-135); Estimated CRCL calculation 48 ml/min; Estimated Glomerular Filt Rate 49; Glucose 109 mg/dL (65-105); Lactate Dehydrogenase 1091 U/L (313-618); Magnesium 2.1 mg/dL (1.6-2.3); Potassium 4.4 mmol/L (3.4-5.0); Sodium 135 mmol/L (137-145)
[2020-10-10] MEDS: DEXAMETHASONE 2 MG TABLET 6 MG PO (08:40)
[2020-10-10] MEDS: ASPIRIN 81 MG ENTERIC TABLET PO (08:41)
[2020-10-10] MEDS: DICLOFENAC SOD 75 MG TABLET.EC PO ×2 (08:41→16:34)
[2020-10-10] MEDS: atenoloL 50 MG TABLET PO ×2 (08:41→20:03)
[2020-10-10] MEDS: CALCIUM CARBONATE (OSCAL) 500 MG TABLET PO (08:42)
[2020-10-10] MEDS: ENOXAPARIN 40 MG/0.4 ML SYRINGE SUB-Q ×2 (08:42→20:04)
[2020-10-10] MEDS: FOLIC ACID 1 MG TABLET PO (08:43)
[2020-10-10] MEDS: MESALAMINE 400 MG DELAYED RELEASE CAPSULE 1600 MG PO ×3 (08:44→16:34)
[2020-10-10] MEDS: THERAPEUTIC MULTIVITAMINS/MINERALS TAB (*BKC) 1 TABLET PO (08:44)
[2020-10-10] MEDS: VITAMIN E 1,000 UNIT CAPSULE 1000 UNIT PO (08:45)
[2020-10-10] MEDS: guaiFENesin 12 HR 600 MG TABCR 1200 MG PO ×2 (08:45→20:04)
[2020-10-10] MEDS: PANTOPRAZOLE 40 MG TABLET PO (08:45)
[2020-10-10] MEDS: FLUTICASONE PROPIONATE 0.05% NA SPR 16 GM BTL (*BKC) 1 SPRAY NASAL (14:14)
--- NOTE | 2020-10-10 16:14 | PM.IMPN ---
Progress Note: A&P Assessment and Plan (1) Acute respiratory failure with hypoxia: Code(s): J96.01 - Acute respiratory failure with hypoxia Status: Acute Assessment and Plan: She was noted to be hypoxic in the upper 80s upon presentation, secondary to COVID-19 pneumonia. Currently maintaining adequate O2 saturations on 6 L per nasal cannula Continue supplemental O2 Treatment for COVID-19 as described below (2) Pneumonia due to COVID-19 virus: Code(s): U07.1 - COVID-19; J12.89 - Other viral pneumonia Status: Acute Assessment and Plan: She tested positive for COVID-19 on 10/03 with symptoms starting approximately 1 week prior to admission. Oxygen requirements continued to increase. Currently maintaining adequate oxygen saturations on 6 L O2. She is afebrile. Continue dexamethasone (day 8 - initiated 10/03). Continue remdesivir (day 02/05 - initiated 10/07). Supplemental O2 as needed with goal saturation 90% or above. Wean to goal. Supportive care to include bronchodilators, expectorants, and antipyretics. Trend acute phase reactants Continue isolation precautions (3) Hypertension: Code(s): I10 - Essential (primary) hypertension Status: Chronic Assessment and Plan: Blood pressures have been somewhat fluctuant, but overall well controlled. BP evaluated today and is stable at 141/59. Continue atenolol. (4) COPD (chronic obstructive pulmonary disease): Code(s): J44.9 - Chronic obstructive pulmonary disease, unspecified Status: Chronic Assessment and Plan: Chronic. Previously noted to have some wheezing, but this seems to have resolved. Continue dexamethasone. Continue albuterol and tiotropium. (5) CAD (coronary artery disease): Code(s): I25.10 - Atherosclerotic heart disease of [place] coronary artery without angina pectoris Status: Chronic Assessment and Plan: Asymptomatic. Continue ASA and atenolol. (6) Ulcerative colitis: Code(s): K51.90 - Ulcerative colitis, unspecified, without complications Status: Chronic Assessment and Plan: Chronic. She noted some looser stools today but denies blood in her stool. Denies abdominal pain. She is afebrile. Continue mesalamine. Monitor stool patterns closely (7) Anemia: Code(s): D64.9 - Anemia, unspecified Status: Acute Assessment and Plan: Chronic. Hb is stable on labs. Iron studies demonstrate anemia of chronic disease. Vitamin B12 and folate are sufficient. Vital signs stable with no evidence of active bleeding. Monitor H&H. Transfuse as needed to maintain Hb >7. (8) Ocular migraine: Code(s): G43.109 - Migraine with aura, not intractable, without status migrainosus Status: Chronic Assessment and Plan: She described some visual changes on 10/09/2020 Her episode seems consistent with ocular migraine, which she reports a history of. Given her history of TIA, workup was performed to rule out acute stroke. Head CT with no acute findings, carotid Doppler with <50% stenosis of bilateral ICA, and brain MRI negative. Symptoms have resolved. Monitor closely Analgesics as needed for pain Subjective Date/time seen: 10/10/20 16:14 Interval history: Date of service: 10/10/2020 Mae Bravo is a 70-year-old female with history of CAD, COPD, HTN, bladder cancer, and multiple other comorbidities who is seen in follow-up for COVID-19 pneumonia. She reports that she is feeling much better today. If she is at she can breathe comfortably. She does endorse FAJADRO and notes that it takes her a long time to catch her breath after sitting back down. She denies wheezing. She does endorse nonproductive cough. Yesterday she was complaining of visual changes which are consistent with ocular migraines that she has known history of. Her visual changes have resolved entirely today. She den
[2020-10-10] MEDS: SACCHAROMYCES BOULARDII 250 MG CAPSULE PO (17:09)
[2020-10-10] MEDS: AMITRIPTYLINE HCL 25 MG TABLET PO (20:03)
[2020-10-10] MEDS: REMDESIVIR 100 MG/NS 250 ML 100 MG/250 ML BAG 250 MG IVPB (21:07)
[2020-10-10] MEDS: guaiFENesin/DEXTROMETHORPHAN 10 ML UDC 5 ML PO (21:07)
[2020-10-11] VITALS (10 sets, daily range): BP systolic 125–167; BP diastolic 61–98; PULSE 62–74; RESP 18–22; TEMP 36.1–37; O2SAT 89–93
[2020-10-11] MEDS: ALBUTEROL SULFATE (*SP) AEROSOL 1 PUFF 2 PUFF INHALATION ×4 (03:33→21:47)
[2020-10-11 06:35] LABS: Hematocrit 34.8 % (37.0-47.0); Hemoglobin 11.7 g/dL (12.0-15.0); Mean Corpuscular HGB Conc 33.6 g/dl (32-36); Mean Corpuscular Hemoglobin 31.8 pg (26-34); Mean Corpuscular Volume 94.6 fl (80-100); Platelet Count Result 246 k/mm3 (150-375); Red Blood Count 3.68 M/mm3 (4.2-5.4); Red Cell Distribution Width 13.5 % (11.5-14.5); White Blood Count 7.9 K/mm3 (4.5-10.0)
[2020-10-11 08:14] LABS: Alanine Aminotransferase 36 U/L (4-35); Albumin Level 3.2 g/dL (3.5-5.1); Alkaline Phosphatase 100 U/L (38-126); Anion Gap 3 mmol/L (8-16); Aspartate Amino Transferase 59 U/L (14-36); Bilirubin,Total 0.4 mg/dL (0.2-1.3); Blood Urea Nitrogen 23 mg/dL (7-17); Calcium 8.2 mg/dL (8.4-10.2); Carbon Dioxide 29 mmol/L (22-30); Chloride 102 mmol/L (98-107); Estimated CRCL calculation 58 ml/min; Estimated Glomerular Filt Rate > 60; Glucose 82 mg/dL (65-105); Lactate Dehydrogenase 1272 U/L (313-618); Potassium 4.1 mmol/L (3.4-5.0); Sodium 134 mmol/L (137-145)
[2020-10-11 08:35] LABS: CRP 13.5 mg/dL (<1.0)
[2020-10-11] MEDS: ASPIRIN 81 MG ENTERIC TABLET PO (09:22)
[2020-10-11] MEDS: DEXAMETHASONE 2 MG TABLET 6 MG PO (09:22)
[2020-10-11] MEDS: DICLOFENAC SOD 75 MG TABLET.EC PO ×2 (09:22→17:47)
[2020-10-11] MEDS: atenoloL 50 MG TABLET PO (09:23)
[2020-10-11] MEDS: CALCIUM CARBONATE (OSCAL) 500 MG TABLET PO (09:23)
[2020-10-11] MEDS: FLUTICASONE PROPIONATE 0.05% NA SPR 16 GM BTL (*BKC) 1 SPRAY NASAL (09:23)
[2020-10-11] MEDS: ENOXAPARIN 40 MG/0.4 ML SYRINGE SUB-Q ×2 (09:23→21:47)
[2020-10-11] MEDS: guaiFENesin 12 HR 600 MG TABCR 1200 MG PO ×2 (09:24→21:46)
[2020-10-11] MEDS: FOLIC ACID 1 MG TABLET PO (09:24)
[2020-10-11] MEDS: guaiFENesin/DEXTROMETHORPHAN 10 ML UDC 5 ML PO (09:24)
[2020-10-11] MEDS: PANTOPRAZOLE 40 MG TABLET PO (09:25)
[2020-10-11] MEDS: SACCHAROMYCES BOULARDII 250 MG CAPSULE PO ×2 (09:25→17:48)
[2020-10-11] MEDS: THERAPEUTIC MULTIVITAMINS/MINERALS TAB (*BKC) 1 TABLET PO (09:25)
[2020-10-11] MEDS: MESALAMINE 400 MG DELAYED RELEASE CAPSULE 1600 MG PO ×3 (09:25→17:47)
[2020-10-11] MEDS: ACETAMINOPHEN 325 MG TABLET 650 MG PO (09:25)
[2020-10-11] MEDS: VITAMIN E 1,000 UNIT CAPSULE 1000 UNIT PO (09:25)
--- NOTE | 2020-10-11 15:38 | PM.IMPN ---
Progress Note: A&P Assessment and Plan (1) Acute respiratory failure with hypoxia: Code(s): J96.01 - Acute respiratory failure with hypoxia Status: Acute Assessment and Plan: She was noted to be hypoxic in the upper 80s upon presentation, secondary to COVID-19 pneumonia. Currently maintaining adequate O2 saturations on 9 L per nasal cannula. O2 requirements are increasing. Continue supplemental O2 Treatment for COVID-19 as described below (2) Pneumonia due to COVID-19 virus: Code(s): U07.1 - COVID-19; J12.89 - Other viral pneumonia Status: Acute Assessment and Plan: She tested positive for COVID-19 on 10/03 with symptoms starting approximately 1 week prior to admission. Oxygen requirements continue to increase. Currently maintaining adequate oxygen saturations on 9 L O2 per high flow NC. She is afebrile. Continue dexamethasone (day 07/13 - initiated 10/03). Continue remdesivir (day 03/07 - initiated 10/07). Will be discontinued tonight. Supplemental O2 as needed with goal saturation 90% or above. Wean to goal. Increased O2 requirements noted. Patient will be monitored closely and adjustments will be made as needed. Supportive care to include bronchodilators, expectorants, and antipyretics. Trend acute phase reactants. LDH has increased with additionally inflammatory markers improved. Continue isolation precautions (3) Hypertension: Code(s): I10 - Essential (primary) hypertension Status: Chronic Assessment and Plan: Blood pressures have been somewhat fluctuant, but overall well controlled. BP evaluated today and is stable at 151/74. Continue atenolol. (4) COPD (chronic obstructive pulmonary disease): Code(s): J44.9 - Chronic obstructive pulmonary disease, unspecified Status: Chronic Assessment and Plan: Chronic. Previously noted to have some wheezing, but this seems to have resolved. Continue dexamethasone. Continue albuterol and tiotropium. (5) CAD (coronary artery disease): Code(s): I25.10 - Atherosclerotic heart disease of [place] coronary artery without angina pectoris Status: Chronic Assessment and Plan: Asymptomatic. Continue ASA and atenolol. (6) Ulcerative colitis: Code(s): K51.90 - Ulcerative colitis, unspecified, without complications Status: Chronic Assessment and Plan: Chronic. She has noted looser stools but denies blood in her stool. Denies abdominal pain. She is afebrile. Continue mesalamine. Monitor stool patterns closely (7) Anemia: Code(s): D64.9 - Anemia, unspecified Status: Acute Assessment and Plan: Chronic. Hb is stable on labs. Iron studies demonstrate anemia of chronic disease. Vitamin B12 and folate are sufficient. Vital signs stable with no evidence of active bleeding. Monitor H&H. Transfuse as needed to maintain Hb >7. (8) Ocular migraine: Code(s): G43.109 - Migraine with aura, not intractable, without status migrainosus Status: Chronic Assessment and Plan: She described some visual changes on 10/09/2020 Her episode seems consistent with ocular migraine, which she reports a history of. Given her history of TIA, workup was performed to rule out acute stroke. Head CT with no acute findings, carotid Doppler with <50% stenosis of bilateral ICA, and brain MRI negative. Symptoms have resolved. Monitor closely Analgesics as needed for pain Subjective Date/time seen: 10/11/20 15:38 Interval history: Date of service: 10/11/2020 Mae Bravo is a 70-year-old female with history of CAD, COPD, HTN, bladder cancer, and multiple other comorbidities who is seen in follow-up for COVID-19 pneumonia. She reports that she had a rough morning. She did not get much sleep last and reports being interrupted frequently. Upon awakening, she felt slightly nauseous and more short of breath than she had be
[2020-10-11] MEDS: MELATONIN 5 MG TABLET PO (21:46)
[2020-10-11] MEDS: AMITRIPTYLINE HCL 25 MG TABLET PO (21:47)
[2020-10-11] MEDS: REMDESIVIR 100 MG/NS 250 ML 100 MG/250 ML BAG 250 MG IVPB (21:58)
[2020-10-12] VITALS (11 sets, daily range): BP systolic 132–148; BP diastolic 63–75; PULSE 63–74; RESP 20–22; TEMP 36.1–36.7; O2SAT 88–93
[2020-10-12] MEDS: ALBUTEROL SULFATE (*SP) AEROSOL 1 PUFF 2 PUFF INHALATION ×4 (01:48→20:54)
[2020-10-12 06:45] LABS: Anion Gap 3 mmol/L (8-16); Blood Urea Nitrogen 25 mg/dL (7-17); Calcium 8.2 mg/dL (8.4-10.2); Carbon Dioxide 28 mmol/L (22-30); Chloride 102 mmol/L (98-107); Estimated CRCL calculation 58 ml/min; Estimated Glomerular Filt Rate > 60; Glucose 94 mg/dL (65-105); Potassium 4.1 mmol/L (3.4-5.0); Sodium 133 mmol/L (137-145)
[2020-10-12 06:48] LABS: Hematocrit 32.1 % (37.0-47.0); Hemoglobin 10.8 g/dL (12.0-15.0); Mean Corpuscular HGB Conc 33.6 g/dl (32-36); Mean Corpuscular Hemoglobin 31.7 pg (26-34); Mean Corpuscular Volume 94.1 fl (80-100); Mean Platelet Volume 9.1 fl (7.4-10.4); Platelet Count Result 262 k/mm3 (150-375); Red Blood Count 3.41 M/mm3 (4.2-5.4); Red Cell Distribution Width 13.4 % (11.5-14.5); White Blood Count 8.2 K/mm3 (4.5-10.0)
[2020-10-12] MEDS: FOLIC ACID 1 MG TABLET PO (08:44)
[2020-10-12] MEDS: ENOXAPARIN 40 MG/0.4 ML SYRINGE SUB-Q ×2 (08:44→20:55)
[2020-10-12] MEDS: guaiFENesin 12 HR 600 MG TABCR 1200 MG PO ×2 (08:44→20:56)
[2020-10-12] MEDS: PANTOPRAZOLE 40 MG TABLET PO (08:45)
[2020-10-12] MEDS: DICLOFENAC SOD 75 MG TABLET.EC PO ×2 (08:45→17:17)
[2020-10-12] MEDS: CALCIUM CARBONATE (OSCAL) 500 MG TABLET PO (08:45)
[2020-10-12] MEDS: SACCHAROMYCES BOULARDII 250 MG CAPSULE PO ×2 (08:45→17:17)
[2020-10-12] MEDS: MESALAMINE 400 MG DELAYED RELEASE CAPSULE 1600 MG PO ×3 (08:45→17:17)
[2020-10-12] MEDS: ASPIRIN 81 MG ENTERIC TABLET PO (08:45)
[2020-10-12] MEDS: THERAPEUTIC MULTIVITAMINS/MINERALS TAB (*BKC) 1 TABLET PO (08:45)
[2020-10-12] MEDS: DEXAMETHASONE 2 MG TABLET 6 MG PO (08:45)
[2020-10-12] MEDS: VITAMIN E 1,000 UNIT CAPSULE 1000 UNIT PO (08:45)
[2020-10-12] MEDS: atenoloL 50 MG TABLET PO ×2 (08:45→20:56)
[2020-10-12] MEDS: FLUTICASONE PROPIONATE 0.05% NA SPR 16 GM BTL (*BKC) 1 SPRAY NASAL (08:48)
[2020-10-12 08:50] LABS: Lactate Dehydrogenase 1152 U/L (313-618)
[2020-10-12 09:14] LABS: CRP 21.1 mg/dL (<1.0)
--- NOTE | 2020-10-12 12:32 | PM.IMPN ---
Progress Note: A&P Assessment and Plan (1) Acute respiratory failure with hypoxia: Code(s): J96.01 - Acute respiratory failure with hypoxia Status: Acute Assessment and Plan: She was noted to be hypoxic in the upper 80s upon presentation, secondary to COVID-19 pneumonia. O2 requirements are increasing and she is currently requiring 11 L. Continue supplemental O2 Treatment for COVID-19 as described below (2) Pneumonia due to COVID-19 virus: Code(s): U07.1 - COVID-19; J12.89 - Other viral pneumonia Status: Acute Assessment and Plan: She tested positive for COVID-19 on 10/03 with symptoms starting approximately 1 week prior to admission. Oxygen requirements continue to increase. Currently maintaining adequate oxygen saturations on 11 L O2 per high flow NC. She is afebrile. Continue dexamethasone (day 08/12 - initiated 10/03). Will discontinue tonight. She completed 5 days of Remdesivir on 10/11/2020 Supplemental O2 as needed with goal saturation 90% or above. Wean to goal. Increased O2 requirements noted. Patient will be monitored closely and adjustments will be made as needed. Supportive care to include bronchodilators, expectorants, and antipyretics. Trend acute phase reactants. Slight increase in CRP today with additional inflammatory markers improved. Continue isolation precautions (3) Hypertension: Code(s): I10 - Essential (primary) hypertension Status: Chronic Assessment and Plan: Blood pressures have been somewhat fluctuant, but overall well controlled. BP evaluated today and is stable at 144/75. Continue atenolol. (4) COPD (chronic obstructive pulmonary disease): Code(s): J44.9 - Chronic obstructive pulmonary disease, unspecified Status: Chronic Assessment and Plan: Chronic. Noted by previous provider to have some wheezing, but this seems to have resolved. Does not appear to be in acute exacerbation Continue albuterol and tiotropium. 10 days of dexamethasone will be completed today (5) CAD (coronary artery disease): Code(s): I25.10 - Atherosclerotic heart disease of [place] coronary artery without angina pectoris Status: Chronic Assessment and Plan: Asymptomatic. Continue ASA and atenolol. (6) Ulcerative colitis: Code(s): K51.90 - Ulcerative colitis, unspecified, without complications Status: Chronic Assessment and Plan: Chronic. She had noted looser stools (improved) but denies blood in her stool. Denies abdominal pain. She is afebrile. Continue mesalamine. Monitor stool patterns closely (7) Anemia: Code(s): D64.9 - Anemia, unspecified Status: Acute Assessment and Plan: Chronic. Hb is stable on labs. Iron studies demonstrate anemia of chronic disease. Vitamin B12 and folate are sufficient. Vital signs stable with no evidence of active bleeding. Monitor H&H. Transfuse as needed to maintain Hb >7. (8) Ocular migraine: Code(s): G43.109 - Migraine with aura, not intractable, without status migrainosus Status: Chronic Assessment and Plan: She described some visual changes on 10/09/2020 Her episode seems consistent with ocular migraine, which she reports a history of. Given her history of TIA, workup was performed to rule out acute stroke. Head CT with no acute findings, carotid Doppler with <50% stenosis of bilateral ICA, and brain MRI negative. Symptoms have resolved. Monitor closely Analgesics as needed for pain Subjective Date/time seen: 10/12/20 12:32 Interval history: Date of service: 10/12/2020 Mae Bravo is a 70-year-old female with history of CAD, COPD, HTN, bladder cancer, and multiple other comorbidities who is seen in follow-up for COVID-19 pneumonia. She feels about the same toda. Continues to experience significant FAJARDO with minimal exertion. She has only been getting up from bed to
[2020-10-12] MEDS: BENZOCAINE/MENTHOL (*BKC) 18 EA LOZENGE 1 LOZENGE PO (17:17)
[2020-10-12] MEDS: MELATONIN 5 MG TABLET PO (20:55)
[2020-10-12] MEDS: AMITRIPTYLINE HCL 25 MG TABLET PO (20:56)
[2020-10-13] VITALS (16 sets, daily range): BP systolic 121–146; BP diastolic 62–96; PULSE 62–81; RESP 16–24; TEMP 36–36.6; O2SAT 85–96; BMI 43.0
[2020-10-13] MEDS: ALBUTEROL SULFATE (*SP) AEROSOL 1 PUFF 2 PUFF INHALATION ×5 (01:54→21:20)
[2020-10-13 06:27] LABS: Hematocrit 32.3 % (37.0-47.0); Hemoglobin 10.8 g/dL (12.0-15.0); Mean Corpuscular HGB Conc 33.4 g/dl (32-36); Mean Corpuscular Hemoglobin 31.4 pg (26-34); Mean Corpuscular Volume 93.9 fl (80-100); Mean Platelet Volume 9.1 fl (7.4-10.4); Platelet Count Result 300 k/mm3 (150-375); Red Blood Count 3.44 M/mm3 (4.2-5.4); Red Cell Distribution Width 13.4 % (11.5-14.5); White Blood Count 10.5 K/mm3 (4.5-10.0)
[2020-10-13 06:58] LABS: Alanine Aminotransferase 42 U/L (4-35); Alkaline Phosphatase 106 U/L (38-126); Anion Gap 5 mmol/L (8-16); Aspartate Amino Transferase 59 U/L (14-36); Bilirubin,Total 0.5 mg/dL (0.2-1.3); Blood Urea Nitrogen 28 mg/dL (7-17); Calcium 8.4 mg/dL (8.4-10.2); Carbon Dioxide 28 mmol/L (22-30); Chloride 101 mmol/L (98-107); Estimated CRCL calculation 58 ml/min; Estimated Glomerular Filt Rate > 60; Glucose 93 mg/dL (65-105); Lactate Dehydrogenase 1041 U/L (313-618); Potassium 4.2 mmol/L (3.4-5.0); Sodium 134 mmol/L (137-145)
[2020-10-13 07:25] LABS: CRP 18.5 mg/dL (<1.0)
[2020-10-13] MEDS: CALCIUM CARBONATE (OSCAL) 500 MG TABLET PO (08:51)
[2020-10-13] MEDS: DICLOFENAC SOD 75 MG TABLET.EC PO (08:51)
[2020-10-13] MEDS: ASPIRIN 81 MG ENTERIC TABLET PO (08:51)
[2020-10-13] MEDS: BENZOCAINE/MENTHOL (*BKC) 18 EA LOZENGE 1 LOZENGE PO (08:51)
[2020-10-13] MEDS: SACCHAROMYCES BOULARDII 250 MG CAPSULE PO (08:51)
[2020-10-13] MEDS: atenoloL 50 MG TABLET PO ×2 (08:51→21:18)
[2020-10-13] MEDS: PANTOPRAZOLE 40 MG TABLET PO (08:52)
[2020-10-13] MEDS: guaiFENesin 12 HR 600 MG TABCR 1200 MG PO ×2 (08:52→21:18)
[2020-10-13] MEDS: FLUTICASONE PROPIONATE 0.05% NA SPR 16 GM BTL (*BKC) 1 SPRAY NASAL (08:52)
[2020-10-13] MEDS: VITAMIN E 1,000 UNIT CAPSULE 1000 UNIT PO (08:52)
[2020-10-13] MEDS: FOLIC ACID 1 MG TABLET PO (08:52)
[2020-10-13] MEDS: ENOXAPARIN 40 MG/0.4 ML SYRINGE SUB-Q ×2 (08:52→21:19)
[2020-10-13] MEDS: THERAPEUTIC MULTIVITAMINS/MINERALS TAB (*BKC) 1 TABLET PO (08:52)
[2020-10-13] MEDS: MESALAMINE 400 MG DELAYED RELEASE CAPSULE 1600 MG PO ×2 (08:52→13:29)
--- NOTE | 2020-10-13 13:14 | PM.IMPN ---
Progress Note: A&P Assessment and Plan (1) Acute respiratory failure with hypoxia: Code(s): J96.01 - Acute respiratory failure with hypoxia Status: Acute Assessment and Plan: She was noted to be hypoxic in the upper 80s upon presentation, secondary to COVID-19 pneumonia. O2 requirements are increasing and she is currently requiring 13 L high flow per NC. Continue supplemental O2 Treatment for COVID-19 as described below (2) Pneumonia due to COVID-19 virus: Code(s): U07.1 - COVID-19; J12.89 - Other viral pneumonia Status: Acute Assessment and Plan: She tested positive for COVID-19 on 10/03 with symptoms starting approximately 1 week prior to admission. Oxygen requirements continue to increase. Currently maintaining adequate oxygen saturations on 13 L O2 per high flow NC. She is afebrile. Will extend Dexamethasone given elevated inflammatory markers. She completed 10 days of 10/12/20. Started 10/03/20. She completed 5 days of Remdesivir on 10/11/2020 Administer convalescent plasma due to increased severity of illness Supplemental O2 as needed with goal saturation 90% or above. Wean to goal. Increased O2 requirements noted. Patient will be monitored closely and adjustments will be made as needed. Can consider addition of non-rebreather over nasal cannula to help support oxygen administration prior to further increasing O2. Supportive care to include bronchodilators, expectorants, and antipyretics. Trend acute phase reactants. Continue isolation precautions (3) Hypertension: Code(s): I10 - Essential (primary) hypertension Status: Chronic Assessment and Plan: Blood pressures have been somewhat fluctuant, but overall well controlled. BP evaluated today and is stable at 145/67. Continue atenolol. (4) COPD (chronic obstructive pulmonary disease): Code(s): J44.9 - Chronic obstructive pulmonary disease, unspecified Status: Chronic Assessment and Plan: Chronic. Noted by previous provider to have some wheezing, but this seems to have resolved. Does not appear to be in acute exacerbation Continue albuterol and tiotropium. (5) CAD (coronary artery disease): Code(s): I25.10 - Atherosclerotic heart disease of [place] coronary artery without angina pectoris Status: Chronic Assessment and Plan: Asymptomatic. Continue ASA and atenolol. (6) Ulcerative colitis: Code(s): K51.90 - Ulcerative colitis, unspecified, without complications Status: Chronic Assessment and Plan: Chronic. She had noted looser stools (improved) but denies blood in her stool. Denies abdominal pain. She is afebrile. Continue mesalamine. Monitor stool patterns closely (7) Anemia: Code(s): D64.9 - Anemia, unspecified Status: Acute Assessment and Plan: Chronic. Hb is stable on labs. Iron studies demonstrate anemia of chronic disease. Vitamin B12 and folate are sufficient. Vital signs stable with no evidence of active bleeding. Monitor H&H. Transfuse as needed to maintain Hb >7. (8) Ocular migraine: Code(s): G43.109 - Migraine with aura, not intractable, without status migrainosus Status: Chronic Assessment and Plan: She described some visual changes on 10/09/2020 Her episode seems consistent with ocular migraine, which she reports a history of. Given her history of TIA, workup was performed to rule out acute stroke. Head CT with no acute findings, carotid Doppler with <50% stenosis of bilateral ICA, and brain MRI negative. Symptoms have resolved. Monitor closely Analgesics as needed for pain Subjective Date/time seen: 10/13/20 13:14 Interval history: Date of service: 10/13/2020 Mae Bravo is a 70-year-old female with history of CAD, COPD, HTN, bladder cancer, and multiple other comorbidities who is seen in follow-up for COVID-19 pneumonia. She is fee
[2020-10-13] MEDS: DEXAMETHASONE SOD PHOS INJ 4 MG/ML VIAL 6 MG IV PUSH (17:58)
--- NOTE | 2020-10-13 20:06 | PC.NURSE ---
This patient, Mae Bravo, was transferred to [facility] 213 on 10/13/20 at 1950. Personal belongings sent with patient. Report given to Sara. Appropriate documentation sent with patient.
[2020-10-13] MEDS: AMITRIPTYLINE HCL 25 MG TABLET PO (21:19)
[2020-10-13] MEDS: MELATONIN 5 MG TABLET PO (21:19)
[2020-10-13] MEDS: SODIUM CHLORIDE 0.9% IV 250 ML 30 ML IV CONT (22:33)
[2020-10-14] VITALS (13 sets, daily range): BP systolic 134–158; BP diastolic 62–107; PULSE 66–82; RESP 20–24; TEMP 36–37.1; O2SAT 88–96
[2020-10-14] MEDS: WATER FOR IRRIGATION, STERILE 1,000 ML BOTTLE 1000 ML (00:44)
[2020-10-14 05:29] LABS: Hematocrit 37.8 % (37.0-47.0); Hemoglobin 12.7 g/dL (12.0-15.0); Mean Corpuscular HGB Conc 33.6 g/dl (32-36); Mean Corpuscular Hemoglobin 31.7 pg (26-34); Mean Corpuscular Volume 94.3 fl (80-100); Mean Platelet Volume 9.7 fl (7.4-10.4); Platelet Count Result 354 k/mm3 (150-375); Red Blood Count 4.01 M/mm3 (4.2-5.4); Red Cell Distribution Width 13.4 % (11.5-14.5); White Blood Count 16.2 K/mm3 (4.5-10.0)
[2020-10-14 05:53] LABS: Alanine Aminotransferase 41 U/L (4-35); Albumin Level 3.7 g/dL (3.5-5.1); Alkaline Phosphatase 128 U/L (38-126); Anion Gap 6 mmol/L (8-16); Aspartate Amino Transferase 58 U/L (14-36); Bilirubin,Total 0.8 mg/dL (0.2-1.3); Blood Urea Nitrogen 19 mg/dL (7-17); Calcium 9.1 mg/dL (8.4-10.2); Carbon Dioxide 33 mmol/L (22-30); Chloride 97 mmol/L (98-107); Estimated CRCL calculation 57 ml/min; Estimated Glomerular Filt Rate > 60; Glucose 120 mg/dL (65-105); Lactate Dehydrogenase 1062 U/L (313-618); Potassium 4.9 mmol/L (3.4-5.0); Sodium 136 mmol/L (137-145)
[2020-10-14 06:51] LABS: CRP 35.4 mg/dL (<1.0)
[2020-10-14] MEDS: MESALAMINE 400 MG DELAYED RELEASE CAPSULE 1600 MG PO ×3 (09:41→18:27)
[2020-10-14] MEDS: ENOXAPARIN 40 MG/0.4 ML SYRINGE SUB-Q ×2 (09:41→20:25)
[2020-10-14] MEDS: DEXAMETHASONE SOD PHOS INJ 4 MG/ML VIAL 6 MG IV PUSH (09:41)
[2020-10-14] MEDS: ASPIRIN 81 MG ENTERIC TABLET PO (09:42)
[2020-10-14] MEDS: PANTOPRAZOLE 40 MG TABLET PO (09:42)
[2020-10-14] MEDS: guaiFENesin 12 HR 600 MG TABCR 1200 MG PO ×2 (09:42→20:24)
[2020-10-14] MEDS: atenoloL 50 MG TABLET PO ×2 (09:43→20:24)
[2020-10-14] MEDS: FLUTICASONE PROPIONATE 0.05% NA SPR 16 GM BTL (*BKC) 1 SPRAY NASAL (09:44)
[2020-10-14] MEDS: ALBUTEROL SULFATE (*SP) AEROSOL 1 PUFF 2 PUFF INHALATION ×4 (09:45→20:25)
[2020-10-14 10:03] LABS: Add Urine Microscopic? YES; Appearance Urine Clear (Clear); Bilirubin Urine Negative (Negative); Blood Urine Negative (Negative); Color Urine Yellow (Yellow); Glucose Urine UA Negative (Negative); Ketones Urine Negative (Negative); Leukocyte Esterase Ur Negative LEU/UL (Negative); Mucus Urine Rare /lpf; Nitrate Urine Negative (Negative); Protein Urine 2+ mg/dL (Negative); Squamous Epithelial Cell Urine Moderate /hpf (Few); Transitional Epi Cells Urine Rare /hpf (None Seen); Urobilinogen Urine Negative mg/dL (<2.0); WBC Urine 0-3 /hpf
--- NOTE | 2020-10-14 10:29 | PM.IMPN ---
Progress Note: A&P Assessment and Plan (1) Acute respiratory failure with hypoxia: Code(s): J96.01 - Acute respiratory failure with hypoxia Status: Acute Assessment and Plan: She was noted to be hypoxic in the upper 80s upon presentation, secondary to COVID-19 pneumonia. O2 requirements continue to increase; currently requiring 15 L O2 per high-flow nasal cannula with non-rebreather Continue supplemental O2 Treatment for COVID-19 as described below (2) Pneumonia due to COVID-19 virus: Code(s): U07.1 - COVID-19; J12.89 - Other viral pneumonia Status: Acute Assessment and Plan: She tested positive for COVID-19 on 10/03 with symptoms starting approximately 1 week prior to admission. Oxygen requirements continue to increase. Currently requiring 15 L O2 per high-flow nasal cannula. She is afebrile. Continue dexamethasone for extended duration given elevated inflammatory markers. Started 10/03/20. She completed 5 days of Remdesivir on 10/11/2020 Convalescent plasma ordered on 10/13 due to severity of illness; awaiting treatment (blood bank notes she should receive this treatment today) Patient transferred to IMU on 10/13/2020 due to continued increased O2 requirements. Continue 15 L O2 per high-flow nasal cannula with non-rebreather. BiPAP or Airvo will be required if unable to maintain adequate oxygen saturations. Supportive care to include bronchodilators, expectorants, and antipyretics. Trend acute phase reactants. Continue isolation precautions (3) Hypertension: Code(s): I10 - Essential (primary) hypertension Status: Chronic Assessment and Plan: Blood pressures have been somewhat fluctuant, but overall well controlled. BP evaluated today and is stable at 154/70. Continue atenolol. (4) COPD (chronic obstructive pulmonary disease): Code(s): J44.9 - Chronic obstructive pulmonary disease, unspecified Status: Chronic Assessment and Plan: Chronic. Noted by previous provider to have some wheezing, but this has resolved. Does not appear to be in acute exacerbation Continue albuterol and tiotropium. (5) CAD (coronary artery disease): Code(s): I25.10 - Atherosclerotic heart disease of [place] coronary artery without angina pectoris Status: Chronic Assessment and Plan: Asymptomatic. Continue ASA and atenolol. (6) Ulcerative colitis: Code(s): K51.90 - Ulcerative colitis, unspecified, without complications Status: Chronic Assessment and Plan: Chronic. She had noted looser stools (improved) but denies blood in her stool. Denies abdominal pain. She is afebrile. Continue mesalamine. Monitor stool patterns closely (7) Anemia: Code(s): D64.9 - Anemia, unspecified Status: Acute Assessment and Plan: Chronic. Hb is stable on labs. Iron studies demonstrate anemia of chronic disease. Vitamin B12 and folate are sufficient. Vital signs stable with no evidence of active bleeding. Monitor H&H. Transfuse as needed to maintain Hb >7. (8) Ocular migraine: Code(s): G43.109 - Migraine with aura, not intractable, without status migrainosus Status: Chronic Assessment and Plan: She described some visual changes on 10/09/2020. Her episode seemed consistent with ocular migraine, which she reports a history of. Given her history of TIA, workup was performed to rule out acute stroke. Head CT with no acute findings, carotid Doppler with <50% stenosis of bilateral ICA, and brain MRI negative. Symptoms have resolved. Monitor closely Analgesics as needed for pain Subjective Date/time seen: 10/14/20 10:29 Interval history: Date of service: 10/14/2020 Mae Bravo is a 70-year-old female with history of CAD, COPD, HTN, bladder cancer, and multiple other comorbidities who is seen in follow-up for COVID-19 pneumonia. She is feeling short of breath today
[2020-10-14] MEDS: AMITRIPTYLINE HCL 25 MG TABLET PO (20:24)
[2020-10-14] MEDS: MELATONIN 5 MG TABLET PO (20:25)
[2020-10-15] VITALS (21 sets, daily range): BP systolic 124–152; BP diastolic 65–97; PULSE 65–94; RESP 20–22; TEMP 35.7–36.8; O2SAT 67–94
[2020-10-15 06:58] LABS: Hematocrit 37.8 % (37.0-47.0); Hemoglobin 12.6 g/dL (12.0-15.0); Mean Corpuscular HGB Conc 33.3 g/dl (32-36); Mean Corpuscular Hemoglobin 31.6 pg (26-34); Mean Corpuscular Volume 94.7 fl (80-100); Platelet Count Result 418 k/mm3 (150-375); Red Blood Count 3.99 M/mm3 (4.2-5.4); Red Cell Distribution Width 13.3 % (11.5-14.5)
[2020-10-15 08:49] LABS: Alanine Aminotransferase 42 U/L (4-35); Albumin Level 3.7 g/dL (3.5-5.1); Alkaline Phosphatase 148 U/L (38-126); Anion Gap 6 mmol/L (8-16); Aspartate Amino Transferase 51 U/L (14-36); Bilirubin,Total 0.8 mg/dL (0.2-1.3); Blood Urea Nitrogen 21 mg/dL (7-17); CRP 34.6 mg/dL (<1.0); Calcium 9.5 mg/dL (8.4-10.2); Carbon Dioxide 33 mmol/L (22-30); Chloride 96 mmol/L (98-107); Estimated CRCL calculation 52 ml/min; Estimated Glomerular Filt Rate 55; Glucose 96 mg/dL (65-105); Lactate Dehydrogenase 936 U/L (313-618); Sodium 135 mmol/L (137-145)
[2020-10-15] MEDS: ENOXAPARIN 40 MG/0.4 ML SYRINGE SUB-Q ×2 (10:07→20:57)
[2020-10-15] MEDS: MESALAMINE 400 MG DELAYED RELEASE CAPSULE 1600 MG PO ×3 (10:07→18:24)
[2020-10-15] MEDS: DEXAMETHASONE SOD PHOS INJ 4 MG/ML VIAL 6 MG IV PUSH (10:08)
[2020-10-15] MEDS: atenoloL 50 MG TABLET PO ×2 (10:08→20:56)
[2020-10-15] MEDS: guaiFENesin 12 HR 600 MG TABCR 1200 MG PO ×2 (10:08→20:56)
[2020-10-15] MEDS: FLUTICASONE PROPIONATE 0.05% NA SPR 16 GM BTL (*BKC) 1 SPRAY NASAL (10:09)
[2020-10-15] MEDS: ASPIRIN 81 MG ENTERIC TABLET PO (10:09)
[2020-10-15] MEDS: PANTOPRAZOLE 40 MG TABLET PO (10:09)
[2020-10-15] MEDS: ALBUTEROL SULFATE (*SP) AEROSOL 1 PUFF 2 PUFF INHALATION ×4 (10:10→20:57)
--- NOTE | 2020-10-15 13:01 | PM.IMPN ---
Progress Note: A&P Assessment and Plan (1) Acute respiratory failure with hypoxia: Code(s): J96.01 - Acute respiratory failure with hypoxia Status: Acute Assessment and Plan: She was noted to be hypoxic in the upper 80s upon presentation, secondary to COVID-19 pneumonia. O2 requirements continue to increase; currently requiring 15 L O2 per high-flow nasal cannula with non-rebreather Continue supplemental O2 Treatment for COVID-19 as described below (2) Pneumonia due to COVID-19 virus: Code(s): U07.1 - COVID-19; J12.89 - Other viral pneumonia Status: Acute Assessment and Plan: She tested positive for COVID-19 on 10/03 with symptoms starting approximately 1 week prior to admission. Oxygen requirements continue to increase. Currently requiring 15 L O2 per high-flow nasal cannula with non-rebreather. She is afebrile. Continue dexamethasone for extended duration given elevated inflammatory markers. Started 10/03/20. She completed 5 days of Remdesivir on 10/11/2020 Received convalescent plasma on 10/13/20. Patient transferred to IMU on 10/13/2020 due to continued increased O2 requirements. Continue 15 L O2 per high-flow nasal cannula with non-rebreather. BiPAP or Airvo will be required if unable to maintain adequate oxygen saturations. Supportive care to include bronchodilators, expectorants, and antipyretics. Trend acute phase reactants. Continue isolation precautions (3) Hypertension: Code(s): I10 - Essential (primary) hypertension Status: Chronic Assessment and Plan: Blood pressures have been somewhat fluctuant, but overall well controlled. BP evaluated today and is stable at 149/81. Continue atenolol. (4) COPD (chronic obstructive pulmonary disease): Code(s): J44.9 - Chronic obstructive pulmonary disease, unspecified Status: Chronic Assessment and Plan: Chronic. Noted by previous provider to have some wheezing, but this has resolved. Does not appear to be in acute exacerbation Continue albuterol and tiotropium. (5) CAD (coronary artery disease): Code(s): I25.10 - Atherosclerotic heart disease of [place] coronary artery without angina pectoris Status: Chronic Assessment and Plan: Asymptomatic. Continue ASA and atenolol. (6) Ulcerative colitis: Code(s): K51.90 - Ulcerative colitis, unspecified, without complications Status: Chronic Assessment and Plan: Chronic. She had noted looser stools (improved) but denies blood in her stool. Denies abdominal pain. She is afebrile. Continue mesalamine. Monitor stool patterns closely (7) Anemia: Code(s): D64.9 - Anemia, unspecified Status: Acute Assessment and Plan: Chronic. Hb is stable on labs. Iron studies demonstrate anemia of chronic disease. Vitamin B12 and folate are sufficient. Vital signs stable with no evidence of active bleeding. Monitor H&H. Transfuse as needed to maintain Hb >7. (8) Ocular migraine: Code(s): G43.109 - Migraine with aura, not intractable, without status migrainosus Status: Chronic Assessment and Plan: She described some visual changes on 10/09/2020. Her episode seemed consistent with ocular migraine, which she reports a history of. Given her history of TIA, workup was performed to rule out acute stroke. Head CT with no acute findings, carotid Doppler with <50% stenosis of bilateral ICA, and brain MRI negative. Symptoms have resolved. Monitor closely Analgesics as needed for pain Subjective Date/time seen: 10/15/20 13:01 Interval history: Date of service: 10/15/2020 Mea Bravo is a 70-year-old female with history of CAD, COPD, HTN, bladder cancer, and multiple other comorbidities who is seen in follow-up for COVID-19 pneumonia. She continues to feel very short of breath. She is feeling fatigued and run down. She continues to complain of dry
[2020-10-15] MEDS: MELATONIN 5 MG TABLET PO (20:56)
[2020-10-15] MEDS: AMITRIPTYLINE HCL 25 MG TABLET PO (20:57)
[2020-10-16] VITALS (20 sets, daily range): BP systolic 122–187; BP diastolic 66–95; PULSE 65–93; RESP 17–28; TEMP 35.6–36.8; O2SAT 74–93; BMI 43.0
[2020-10-16 04:48] LABS: Hematocrit 35.1 % (37.0-47.0); Hemoglobin 11.6 g/dL (12.0-15.0); Mean Corpuscular Hemoglobin 31.2 pg (26-34); Mean Corpuscular Volume 94.4 fl (80-100); Mean Platelet Volume 9.1 fl (7.4-10.4); Platelet Count Result 400 k/mm3 (150-375); Red Blood Count 3.72 M/mm3 (4.2-5.4); Red Cell Distribution Width 13.3 % (11.5-14.5); White Blood Count 17.4 K/mm3 (4.5-10.0)
[2020-10-16 05:18] LABS: Alanine Aminotransferase 32 U/L (4-35); Albumin Level 3.4 g/dL (3.5-5.1); Alkaline Phosphatase 134 U/L (38-126); Anion Gap 4 mmol/L (8-16); Aspartate Amino Transferase 45 U/L (14-36); Bilirubin,Total 0.8 mg/dL (0.2-1.3); Blood Urea Nitrogen 27 mg/dL (7-17); Calcium 8.9 mg/dL (8.4-10.2); Carbon Dioxide 31 mmol/L (22-30); Chloride 98 mmol/L (98-107); Estimated CRCL calculation 52 ml/min; Estimated Glomerular Filt Rate 55; Glucose 108 mg/dL (65-105); Lactate Dehydrogenase 784 U/L (313-618); Potassium 4.8 mmol/L (3.4-5.0); Sodium 133 mmol/L (137-145)
[2020-10-16 05:47] LABS: CRP 35.1 mg/dL (<1.0)
[2020-10-16] MEDS: ALBUTEROL SULFATE (*SP) AEROSOL 1 PUFF 2 PUFF INHALATION ×2 (09:11→20:02)
[2020-10-16] MEDS: ENOXAPARIN 40 MG/0.4 ML SYRINGE SUB-Q ×2 (09:12→21:08)
[2020-10-16] MEDS: guaiFENesin 12 HR 600 MG TABCR 1200 MG PO ×2 (09:12→21:08)
[2020-10-16] MEDS: MESALAMINE 400 MG DELAYED RELEASE CAPSULE 1600 MG PO (09:13)
[2020-10-16] MEDS: atenoloL 50 MG TABLET PO ×2 (09:13→21:08)
[2020-10-16] MEDS: ASPIRIN 81 MG ENTERIC TABLET PO (09:13)
[2020-10-16] MEDS: DEXAMETHASONE SOD PHOS INJ 4 MG/ML VIAL 6 MG IV PUSH (09:14)
[2020-10-16] MEDS: PANTOPRAZOLE 40 MG TABLET PO (09:14)
[2020-10-16] MEDS: FLUTICASONE PROPIONATE 0.05% NA SPR 16 GM BTL (*BKC) 1 SPRAY NASAL (09:14)
--- NOTE | 2020-10-16 11:40 | P.PNIM_ITS ---
Progress Note: A&P Assessment and Plan (1) Acute respiratory failure with hypoxia: Code(s): J96.01 - Acute respiratory failure with hypoxia <Leticia Kim PA-C - Last Filed: 10/16/20 18:44> Status: Acute <Leticia Pitts DERIK KimC - Last Filed: 10/16/20 18:44> Assessment and Plan: She was noted to be hypoxic in the upper 80s upon presentation, secondary to COVID-19 pneumonia. O2 requirements continue to increase; she is now using Airvo device at 60L/min. * Continue Airvo. I have discussed case with my supervising physician given clinical worsening and continued increased O2 requirements who plans to evaluate patient. Discussed with patient that intubation may be considered if continued worsening and she reiterates that she would like this to be done if medically necessary. * Will repeat CXR today. * Treatment for COVID-19 as described below <Leticia Kim PA-C - Last Filed: 10/16/20 18:44> (2) Pneumonia due to COVID-19 virus: Code(s): U07.1 - COVID-19; J12.89 - Other viral pneumonia <DERIK AvalosC - Last Filed: 10/16/20 18:44> Status: Acute <Leticia Kim PA-C - Last Filed: 10/16/20 18:44> Assessment and Plan: She tested positive for COVID-19 on 10/03 with symptoms starting a pproximately 1 week prior to admission. Oxygen requirements continue to increase as above. She is afebrile. * Continue dexamethasone for extended duration given elevated inflammatory markers. Started 10/03/20. * She completed 5 days of Remdesivir on 10/11/2020 * Received convalescent plasma on 10/13/20. * Patient transferred to IMU on 10/13/2020 due to continued increased O2 requirements. Continue Airvo. * Supportive care to include bronchodilators, expectorants, and antipyretics. * Trend acute phase reactants. * Continue isolation precautions * Deleon catheter initiated 10/15. Bed rest to limit episodes of hypoxia <Leticia Kim PA-C - Last Filed: 10/16/20 18:44> (3) Hypertension: Code(s): I10 - Essential (primary) hypertension <Leticia JShawna Bernalac, PA-C - Last Filed: 10/16/20 18:44> Status: Chronic <Leticia J. Stimac, PA-C - Last Filed: 10/16/20 18:44> Assessment and Plan: Blood pressures have been somewhat fluctuant, but overall well controlled. BP evaluated today and is stable at 122/60. * Continue atenolol. <Leticia J. Stimac, PA-C - Last Filed: 10/16/20 18:44> (4) COPD (chronic obstructive pulmonary disease): Code(s): J44.9 - Chronic obstructive pulmonary disease, unspecified <Leticia J. Gabeac, PA-C - Last Filed: 10/16/20 18:44> Status: Chronic <Leticia J. Stimac, PA-C - Last Filed: 10/16/20 18:44> Assessment and Plan: Chronic. Noted by previous provider to have some wheezing, but this has resolved. Does not appear to be in acute exacerbation * Continue albuterol and tiotropium. <Leticia J. Stimac, PA-C - Last Filed: 10/16/20 18:44> (5) CAD (coronary artery disease): Code(s): I25.10 - Atherosclerotic heart disease of [place] coronary artery without angina pectoris <Leticia JShawna Kim, PA-C - Last Filed: 10/16/20 18:44> Status: Chronic <Leticia JShawna Stimac, PA-C - Last Filed: 10/16/20 18:44> Assessment and Plan: Asymptomatic. * Continue ASA and atenolol. <Leticia J. Stimac, PA-C - Last Filed: 10/16/20 18:44> (6) Ulcerative colitis: Code(s): K51.90 - Ulcerative colitis, unspecified, without complications <Leticia J. Judy, PA-C - Last Filed: 10/16/20 18:44> Status:
--- NOTE | 2020-10-16 11:40 | PM.IMPN ---
Progress Note: A&P Assessment and Plan (1) Acute respiratory failure with hypoxia: Code(s): J96.01 - Acute respiratory failure with hypoxia <Leticia Kim PA-C - Last Filed: 10/16/20 18:44> Status: Acute <DERIK AvalosC - Last Filed: 10/16/20 18:44> Assessment and Plan: She was noted to be hypoxic in the upper 80s upon presentation, secondary to COVID-19 pneumonia. O2 requirements continue to increase; she is now using Airvo device at 60L/min. Continue Airvo. I have discussed case with my supervising physician given clinical worsening and continued increased O2 requirements who plans to evaluate patient. Discussed with patient that intubation may be considered if continued worsening and she reiterates that she would like this to be done if medically necessary. Will repeat CXR today. Treatment for COVID-19 as described below <Leticia Kim PA-C - Last Filed: 10/16/20 18:44> (2) Pneumonia due to COVID-19 virus: Code(s): U07.1 - COVID-19; J12.89 - Other viral pneumonia <Leticia Kim PA-C - Last Filed: 10/16/20 18:44> Status: Acute <Leticia Kim PA-C - Last Filed: 10/16/20 18:44> Assessment and Plan: She tested positive for COVID-19 on 10/03 with symptoms starting approximately 1 week prior to admission. Oxygen requirements continue to increase as above. She is afebrile. Continue dexamethasone for extended duration given elevated inflammatory markers. Started 10/03/20. She completed 5 days of Remdesivir on 10/11/2020 Received convalescent plasma on 10/13/20. Patient transferred to IMU on 10/13/2020 due to continued increased O2 requirements. Continue Airvo. Supportive care to include bronchodilators, expectorants, and antipyretics. Trend acute phase reactants. Continue isolation precautions Deleon catheter initiated 10/15. Bed rest to limit episodes of hypoxia <Leticia Kim PA-C - Last Filed: 10/16/20 18:44> (3) Hypertension: Code(s): I10 - Essential (primary) hypertension <Leticia Kim PA-C - Last Filed: 10/16/20 18:44> Status: Chronic <Leticia Kim PA-C - Last Filed: 10/16/20 18:44> Assessment and Plan: Blood pressures have been somewhat fluctuant, but overall well controlled. BP evaluated today and is stable at 122/60. Continue atenolol. <Leticia Kim PA-C - Last Filed: 10/16/20 18:44> (4) COPD (chronic obstructive pulmonary disease): Code(s): J44.9 - Chronic obstructive pulmonary disease, unspecified <Leticia Kim PA-C - Last Filed: 10/16/20 18:44> Status: Chronic <Leticia Kim PA-C - Last Filed: 10/16/20 18:44> Assessment and Plan: Chronic. Noted by previous provider to have some wheezing, but this has resolved. Does not appear to be in acute exacerbation Continue albuterol and tiotropium. <Leticia Kim PA-C - Last Filed: 10/16/20 18:44> (5) CAD (coronary artery disease): Code(s): I25.10 - Atherosclerotic heart disease of [place] coronary artery without angina pectoris <Leticia Kim PA-C - Last Filed: 10/16/20 18:44> Status: Chronic <Leticia Kim PA-C - Last Filed: 10/16/20 18:44> Assessment and Plan: Asymptomatic. Continue ASA and atenolol. <Leticia Kim PA-C - Last Filed: 10/16/20 18:44> (6) Ulcerative colitis: Code(s): K51.90 - Ulcerative colitis, unspecified, without complications <Leticia Kim PA-C - Last Filed: 10/16/20 18:44> Status: Chronic <Leticia Kim PA-C - Last Filed: 10/16/20 18:44> Assessment and Plan: Chronic. She had noted looser stools but denies blood in her stool. Denies abdominal pain. She is afebrile. Loose stools have resolved. Continue mesalamine. Monitor stool patterns closely <Leticia Kim PA-C - Last Filed: 10/16/20 18:44> (7)
--- NOTE | 2020-10-16 15:53 | PC.NURSE ---
This patient, Mae Bravo, was transferred to ICU-3 on 10/16/20 at 1540. Personal belongings sent with patient. Report given to Kerry Parra RN. Appropriate documentation sent with patient.
--- NOTE | 2020-10-16 16:01 | PC.NURSE ---
This patient, Mae Bravo, was received from [ [id number]] on 10/16/20 at 1602. Patient/family oriented to unit policies and routines. Report received from SULMA Flores
[2020-10-16] MEDS: ACETAMINOPHEN 325 MG TABLET 650 MG PO (17:09)
[2020-10-16] MEDS: MELATONIN 5 MG TABLET PO (21:08)
[2020-10-17] VITALS (17 sets, daily range): BP systolic 132–154; BP diastolic 77–89; PULSE 65–97; RESP 15–26; TEMP 36.7–37.1; O2SAT 87–91
[2020-10-17 05:28] LABS: Basophils Percent Auto 0.1 % (0.2-1.2); Hematocrit 34.6 % (37.0-47.0); Hemoglobin 11.5 g/dL (12.0-15.0); Lymphocytes Absolute Auto 0.42 K/mm3 (0.9-3.2); Lymphocytes Percent Auto 2.1 % (18.3-44.2); Mean Corpuscular HGB Conc 33.2 g/dl (32-36); Mean Corpuscular Hemoglobin 30.7 pg (26-34); Mean Corpuscular Volume 92.5 fl (80-100); Monocytes Absolute Auto 0.7 K/mm3 (0.1-0.6); Monocytes Percent Auto 3.2 % (2.6-8.5); Neutrophils Absolute Auto 18.8 K/mm3 (1.3-6.7); Neutrophils Percent Auto 93.6 % (45.5-73.1); Platelet Count Result 430 k/mm3 (150-375); Red Blood Count 3.74 M/mm3 (4.2-5.4); Red Cell Distribution Width 13.2 % (11.5-14.5); White Blood Count 20.1 K/mm3 (4.5-10.0)
[2020-10-17 05:47] LABS: Potassium 4.8 mmol/L (3.4-5.0)
[2020-10-17 05:54] LABS: Alanine Aminotransferase 27 U/L (4-35); Albumin Level 3.4 g/dL (3.5-5.1); Alkaline Phosphatase 144 U/L (38-126); Anion Gap 7 mmol/L (8-16); Aspartate Amino Transferase 42 U/L (14-36); Bilirubin,Total 0.8 mg/dL (0.2-1.3); Blood Urea Nitrogen 32 mg/dL (7-17); Calcium 9.2 mg/dL (8.4-10.2); Carbon Dioxide 29 mmol/L (22-30); Chloride 99 mmol/L (98-107); Estimated CRCL calculation 51 ml/min; Estimated Glomerular Filt Rate 55; Glucose 96 mg/dL (65-105); Lactate Dehydrogenase 716 U/L (313-618); Sodium 135 mmol/L (137-145)
[2020-10-17] MEDS: ENOXAPARIN 40 MG/0.4 ML SYRINGE SUB-Q ×2 (08:37→20:03)
[2020-10-17] MEDS: guaiFENesin 12 HR 600 MG TABCR 1200 MG PO ×2 (08:38→20:03)
[2020-10-17] MEDS: PANTOPRAZOLE SODIUM IV 40 MG VIAL IV PUSH (08:40)
[2020-10-17] MEDS: atenoloL 50 MG TABLET PO ×2 (08:44→20:03)
[2020-10-17] MEDS: FLUTICASONE PROPIONATE 0.05% NA SPR 16 GM BTL (*BKC) 1 SPRAY NASAL (08:45)
[2020-10-17] MEDS: DEXAMETHASONE SOD PHOS INJ 4 MG/ML VIAL 6 MG IV PUSH (08:45)
[2020-10-17] MEDS: ASPIRIN 81 MG ENTERIC TABLET PO (08:45)
[2020-10-17] MEDS: ALBUTEROL SULFATE (*SP) AEROSOL 1 PUFF 2 PUFF INHALATION ×4 (09:10→20:02)
--- NOTE | 2020-10-17 09:21 | WPDCNINT ---
Assessment and Plan Assessment and plan (1) Acute respiratory failure with hypoxia: Code(s): J96.01 - Acute respiratory failure with hypoxia Status: Acute Assessment and Plan: Acute hypoxic respiratory failure likely related to COVID-19 pneumonia -chest x-ray shows worsened diffuse lung disease consistent with pneumonia -patient currently on high-flow therapy, 60 L flow rate, 90% FiO2 with 100% non-rebreather mask in place -continue to wean FiO2 as tolerated -will add Tessalon Perles for cough -discussed with patient at length regarding intubation FiO2 oxygen remains low, to which she was agreeable. Currently patient is no respiratory distress. (2) Pneumonia due to COVID-19 virus: Code(s): U07.1 - COVID-19; J12.89 - Other viral pneumonia Status: Acute Assessment and Plan: COVID-19 pneumonia - patient has received a 5 day course of Remdesivir which was completed on 10/11/2020. - on dexamethasone 10/03/2020 -received convalescent plasma on 10/14/2020 -continue contact, droplet, airborne isolation/precautions (3) COPD (chronic obstructive pulmonary disease): Code(s): J44.9 - Chronic obstructive pulmonary disease, unspecified Status: Chronic Assessment and Plan: Continue albuterol and Spiriva (4) Leukocytosis: Code(s): D72.829 - Elevated white blood cell count, unspecified Status: Acute Assessment and Plan: Leukocytosis without fevers, worsening chest x-ray, will obtain blood cultures, urine culture, sputum culture White blood cell count elevation could be related to steroids, given her worsening chest x-ray will start her on empiric antibiotics with vancomycin and cefepime (initiated on 10/17/2020) (5) Hypertension: Code(s): I10 - Essential (primary) hypertension Status: Chronic Assessment and Plan: Continue atenolol (6) Ulcerative colitis: Code(s): K51.90 - Ulcerative colitis, unspecified, without complications Status: Chronic Assessment and Plan: Continue mesalamine (7) DVT prophylaxis: Code(s): Z29.9 - Encounter for prophylactic measures, unspecified Status: Acute Assessment and Plan: DVT prophylaxis: Lovenox 40 mg SQ q.12 hours Stress ulcer prophylaxis: Protonix as patient on steroids Additional Plan Discussed with patient at length and updated with her condition and plan of care. She is agreeable to intubation if her O2 sats remain low. I answered all questions Code status: Full code Critical care time spent: 44 minutes Due to a high probability of clinically significant, life threatening deterioration, the patient required my highest level of preparedness to intervene emergently and I personally spent this critical care time directly and personally managing the patient. This critical care time included obtaining a history; examining the patient; pulse oximetry; ordering and review of studies; arranging urgent treatment with development of a management plan; evaluation of patient's response to treatment; frequent reassessment; and discussions with other providers. It was exclusive of separately billable procedures and treating other patients and teaching time. Please see Assessment and Plan section and the rest of the note for further information on patient assessment and treatment Area Manager Consult Note Consult date: 10/17/20 Time Seen: 07:04 Reason for consult: Acute hypoxic respiratory failure secondary to COVID-19 pneumonia HPI: Mae Bravo is a 70 year old female with past medical history of coronary artery disease, COPD, hyperlipidemia, hypertension, iron deficiency anemia, TIA, ulcerative colitis presented to ED on 10/07/2020 complaining of shortness of breath for 1 week prior to admission. She was tested positive a COVID-19 on 10/01/2020. Patient was on the medical floor requiring 5-6 L nasal cannula. Patient's oxygen requirements continue to increase she was transferred to the
--- NOTE | 2020-10-17 11:42 | PCDIET ---
ICU Rounding Note: Patient on regular diet, but intake now limited. Patient transferred to ICU and is currently on high flow O2. Last recorded weight is 103.1kg which is down from last review. -I/O. Bowel Motility: Last documented BM on 10/14/20. Labs Reviewed: Hgb (11.5), Hct (34.6), BUN (32), Na (135), Alb (3.4) Meds Noted: Albuterol, Cefepime, Decadron, Protonix, Vancomycin Additional Notes: Bottom reddened, per RN. No open sores documented. Following daily in ICU rounds. Assessing/reassessing every 3 days.
[2020-10-17] MEDS: LIDOCAINE HCL 1% PF INJ 5 ML VIAL INFILTRATE (12:00)
[2020-10-17] MEDS: BENZONATATE 100 MG CAPSULE 200 MG PO ×2 (13:19→18:11)
[2020-10-17] MEDS: CENTRAL LINE FLUSH 10 ML IV PUSH ×2 (14:05→22:06)
--- NOTE | 2020-10-17 15:53 | PM.IMPN ---
Progress Note: A&P Assessment and Plan (1) Leukocytosis: Code(s): D72.829 - Elevated white blood cell count, unspecified Status: Acute Assessment and Plan: Likely secondary to demargination although patient with diffuse lung infiltrates Vanc/Cefepime/Remdesivir. (2) COPD (chronic obstructive pulmonary disease): Code(s): J44.9 - Chronic obstructive pulmonary disease, unspecified Status: Chronic Assessment and Plan: Dexamethasone Albuterol Spiirva. (3) Pneumonia due to COVID-19 virus: Code(s): U07.1 - COVID-19; J12.89 - Other viral pneumonia Status: Acute Assessment and Plan: On Remdesivir Convalescent plasma Supportive care. (4) Acute respiratory failure with hypoxia: Code(s): J96.01 - Acute respiratory failure with hypoxia Status: Acute Assessment and Plan: Appreciate Int/Pul note Continue HFNC (5) Acute respiratory failure with hypoxia: Code(s): J96.01 - Acute respiratory failure with hypoxia Status: Acute (6) Infiltrate of lung present on chest x-ray: Code(s): R91.8 - Other nonspecific abnormal finding of lung field Status: Acute Assessment and Plan: Started Vanc and Cefepime as per Event Mgr. Subjective Date/time seen: 10/17/20 15:53 I feel OK. Review of Systems Review of Systems: Narrative: Patient is on HFNC with Non rebreather mask on. Unable to obtain a review. Exam Narrative: Exam Narrative: Lying in bed. Const: General: no acute distress and ill appearing Nutritional Appearance: overweight Orientation/consciousness: patient oriented x3 HENMT: Head: normal to inspection and normocephalic Eyes: General: appearance normal, both eyes and all related structures Pupils: Equal, round and reactive pupils present EOM: EOMs intact bilaterally Neck: Neck: no lymphadenopathy, supple and no JVD Resp: Effort & Inspection: respiratory distress, tachypneic and other Auscultation: diminished lung sounds Cardio: Jugular venous distension: no JVD Rate: regular rate Rhythm: regular rhythm GI: Inspection: normal to inspection GI Palp: Yes Soft to palpation and Yes No hepatosplenomegaly present Skin: General skin exam: normal color Lesions: no lesions Rashes: no rashes Wounds: no wounds Neuro: General: patient oriented x3 and CN's II-XI intact bilaterally Cranial nerves: Yes CN's II-XII intact bilaterally and Yes Equal, round and reactive pupils present Cognition (Neuro): normal cognition Speech: normal speech Gait exam (Neuro): Normal gait present Motor exam (neuro): 5/5 motor strength present throughout Extrem: General: full ROM and no pedal edema Objective Data Vital Signs Vital Signs: Vital Signs - 24 hr 10/16/20 16:00 10/16/20 17:21 10/16/20 18:00 Temperature 98.3 F Pulse Rate 73 91 72 Respiratory Rate 19 22 H 17 Blood Pressure 131/78 139/76 Pulse Oximetry 90 74 L 91 10/16/20 20:00 10/16/20 20:05 10/16/20 21:08 Temperature 98.3 F Pulse Rate 73 74 79 Respiratory Rate 21 H 24 H Blood Pressure 143/82 H Pulse Oximetry 90 90 10/16/20 22:00 10/17/20 00:00 10/17/20 02:00 Temperature 98.1 F Pulse Rate 67 65 65 Respiratory Rate 19 15 24 H Blood Pressure 135/95 H 137/86 154/78 H Pulse Oximetry 91 90 90 10/17/20 02:01 10/17/20 04:00 10/17/20 06:00 Temperature 98.2 F Pulse Rate 72 76 Respiratory Rate 17 16 Blood Pressure 140/87 144/86 H Pulse Oximetry 90 89 L 91 10/17/20 08:00 10/17/20 08:44 10/17/20 09:12 Temperature 98.0 F Pulse Rate 91 97 93 Respiratory Rate 24 H 20 Blood Pressure 139/86 Pulse Oximetry 89 L 88 L 10/17/20 10:00 10/17/20 12:00 10/17/20 14:00 Temperature Pulse Rate 81 79 71 Respiratory Rate 26 H 18 22 H Blood Pressure 135/78 132/86 139/77 Pulse Oximetry 87 L 91 90 Intake/Output Intake/Output: Intake & Output 10/14/20 10/15/20 10/16/20 10/17/20 23:59 23:59 23:59 23:59 Intake Total 1119 480 120
[2020-10-17] MEDS: MELATONIN 5 MG TABLET PO (20:02)
[2020-10-18] VITALS (37 sets, daily range): BP systolic 86–152; BP diastolic 71–95; PULSE 70–104; RESP 16–30; TEMP 35.9–36.9; O2SAT 75–97
[2020-10-18 03:31] LABS: Hemoglobin A1C 5.5 % (<5.7)
[2020-10-18] MEDS: CENTRAL LINE FLUSH 10 ML IV PUSH ×3 (05:04→22:30)
[2020-10-18 05:21] LABS: Hematocrit 34.8 % (37.0-47.0); Hemoglobin 11.6 g/dL (12.0-15.0); Mean Corpuscular HGB Conc 33.3 g/dl (32-36); Mean Corpuscular Hemoglobin 31.8 pg (26-34); Mean Corpuscular Volume 95.3 fl (80-100); Mean Platelet Volume 9.2 fl (7.4-10.4); Platelet Count Result 420 k/mm3 (150-375); Red Blood Count 3.65 M/mm3 (4.2-5.4); Red Cell Distribution Width 13.2 % (11.5-14.5); White Blood Count 19.9 K/mm3 (4.5-10.0)
[2020-10-18 05:39] LABS: Anion Gap 8 mmol/L (8-16); Blood Urea Nitrogen 32 mg/dL (7-17); Calcium 9.2 mg/dL (8.4-10.2); Carbon Dioxide 30 mmol/L (22-30); Chloride 98 mmol/L (98-107); Estimated CRCL calculation 46 ml/min; Estimated Glomerular Filt Rate 49; Glucose 97 mg/dL (65-105); Magnesium 2.7 mg/dL (1.6-2.3); Potassium 4.8 mmol/L (3.4-5.0); Sodium 136 mmol/L (137-145)
[2020-10-18] MEDS: guaiFENesin 12 HR 600 MG TABCR 1200 MG PO (07:50)
[2020-10-18] MEDS: PANTOPRAZOLE SODIUM IV 40 MG VIAL IV PUSH (07:51)
[2020-10-18] MEDS: ASPIRIN 81 MG ENTERIC TABLET PO (07:51)
[2020-10-18] MEDS: BENZONATATE 100 MG CAPSULE 200 MG PO (07:51)
[2020-10-18] MEDS: atenoloL 50 MG TABLET PO (07:51)
[2020-10-18] MEDS: DEXAMETHASONE SOD PHOS INJ 4 MG/ML VIAL 6 MG IV PUSH (07:52)
[2020-10-18] MEDS: ENOXAPARIN 40 MG/0.4 ML SYRINGE SUB-Q ×2 (07:52→20:14)
[2020-10-18] MEDS: FLUTICASONE PROPIONATE 0.05% NA SPR 16 GM BTL (*BKC) 1 SPRAY NASAL (07:53)
[2020-10-18] MEDS: PROPOFOL IV EMULSION 100 ML 12.4 MG IV CONT (09:42)
[2020-10-18] MEDS: ROCURONIUM BROMIDE 50 MG/5 ML VIAL (10:40)
[2020-10-18] MEDS: EPOPROSTENOL SODIUM 0.5 MG VIAL 1 MG INHALATION ×3 (10:58→22:12)
[2020-10-18] MEDS: CISATRACURIUM BESYLATE 200 MG in DEXTROSE 5% 80 ML 9.3 ML IV CONT (11:04)
--- NOTE | 2020-10-18 11:38 | PCDIET ---
ICU Rounding Note: Patient intubated earlier today with MD order to start trickle feedings. Last recorded weight is 103.3kg which is stable with last review. Bowel Motility: Last documented BM on 10/14/20. KUB showed possible ileus. Labs Reviewed: Hgb (11.6), Hct (34.8), BUN (32), Cr (1.1), Alb (3.4) Meds Noted: Decadron, Protonix, Nimbex, Albuterol, Cefepime, Vancomycin, Propofol (rate of 12.4mL/hr provides 327kcal per day) Additional Notes: Buttocks reddened; no documented skin breakdown. Following daily in ICU rounds. Assessing/reassessing every Friday/Friday.
[2020-10-18 11:44] LABS: Alveolar/Arterial O2 Gradient 568.3 mmHg; Base Excess ABG -3.9 mEq/l (+/-2.0); Carboxyhemoglobin 0.1 % THb (0-2.0); Fractional Inspired Oxygen 100 %; HCO3 ABG 24.4 mEq/l (22.0-26.0); Methemoglobin ABG 0.1 %THb (0-1.5); Oxygen Content ABG 17.2 %vol (16.0-22.0); Oxygen Saturation ABG 94.6 % (95.0-100.0); Oxyhemoglobin 93.2 % THb (90.0-100.0); PO2 ABG 85.7 mmHg (80.0-100.0); PO2 FiO2 Ratio Arterial Blood 0.86 %; Reduced Hemoglobin 6.6 %THb (0-5.0); Total Hemoglobin 13.1 g/dL (12.0-18.0)
[2020-10-18 11:45] LABS: Device VENTILATOR; Site Drawn LEFT RADIAL; pH ABG 7.234 (7.350-7.450)
[2020-10-18 11:46] LABS: Arterial Blood Gas PEEP 12 cmH2O; Arterial Blood Gas Tidal Volume 300 ml; Arterial Blood Gas Vent Mode CMV; Arterial Blood Gas Ventilator rate 28 /MIN
--- NOTE | 2020-10-18 11:51 | WPDINTPN ---
Progress Note: A&P Assessment and Plan (1) Acute respiratory failure with hypoxia: Code(s): J96.01 - Acute respiratory failure with hypoxia Status: Acute Assessment and Plan: Acute hypoxic respiratory failure likely related to COVID-19 pneumonia -chest x-ray shows worsened diffuse lung disease consistent with pneumonia -patient currently on high-flow therapy, 60 L flow rate, 94% FiO2 with 100% non-rebreather mask in place. Patient is struggling to breathe with low oxygen saturations, discussed with her regarding intubation to which she agreed -patient was successfully intubated, intubation was uneventful -patient desaturated after she got disconnected from the ventilator after she coughed, she was bagged and took a while for her O2 sats to,. Currently sedated with propofol, started on Nimbex infusion for neuromuscular blockade. -patient also started on Flolan -will prone patient today (2) Pneumonia due to COVID-19 virus: Code(s): U07.1 - COVID-19; J12.89 - Other viral pneumonia Status: Acute Assessment and Plan: COVID-19 pneumonia - patient has received a 5 day course of Remdesivir which was completed on 10/11/2020. - on dexamethasone 10/03/2020 -received convalescent plasma on 10/14/2020 -continue contact, droplet, airborne isolation/precautions (3) COPD (chronic obstructive pulmonary disease): Code(s): J44.9 - Chronic obstructive pulmonary disease, unspecified Status: Chronic Assessment and Plan: Continue bronchodilators (4) Leukocytosis: Code(s): D72.829 - Elevated white blood cell count, unspecified Status: Acute Assessment and Plan: Leukocytosis without fevers, worsening chest x-ray, will obtain blood cultures, urine culture, sputum culture White blood cell count elevation could be related to steroids, given her worsening chest x-ray will start her on empiric antibiotics with vancomycin and cefepime (initiated on 10/17/2020) (5) Hypertension: Code(s): I10 - Essential (primary) hypertension Status: Chronic Assessment and Plan: Will hold atenolol, blood pressures are borderline likely due to positive pressure ventilation and propofol (6) Ulcerative colitis: Code(s): K51.90 - Ulcerative colitis, unspecified, without complications Status: Chronic Assessment and Plan: Continue mesalamine (7) DVT prophylaxis: Code(s): Z29.9 - Encounter for prophylactic measures, unspecified Status: Acute Assessment and Plan: DVT prophylaxis: Lovenox 40 mg SQ q.12 hours Stress ulcer prophylaxis: Protonix as patient on steroids Additional Plan D/w Georgette, patient's daughter and updated with patient's condition and plan of care. She is aware that patient intubated due to hypoxia. She is also aware that patient is on Flolan, Nimbex, sedation and we will be pronator at some point. I answered all questions Code status: Full code Critical care time spent: 46 minutes Due to a high probability of clinically significant, life threatening deterioration, the patient required my highest level of preparedness to intervene emergently and I personally spent this critical care time directly and personally managing the patient. This critical care time included obtaining a history; examining the patient; pulse oximetry; ordering and review of studies; arranging urgent treatment with development of a management plan; evaluation of patient's response to treatment; frequent reassessment; and discussions with other providers. It was exclusive of separately billable procedures and treating other patients and teaching time. Please see Assessment and Plan section and the rest of the note for further information on patient assessment and treatment Subjective Date/time seen: 10/18/20 11:51 Interval history: Reason for consult: COVID-19 19 pneumonia, acute hypoxic respiratory failure 10/18: Patient has been desaturating the mid 8
[2020-10-18] MEDS: PROPOFOL IV EMULSION 100 ML 18.59 MG IV CONT (13:32)
--- NOTE | 2020-10-18 13:49 | WPDPROCEDUR ---
Procedures Intubation Intubation Date: 10/18/20 Intubation Time: 09:04 A pre-procedural Time-Out was completed immediately before starting the procedure and confirmed: Patient Identification, Site, Procedure, Patient Position and the Availability of Requisite Equipment: Yes Sedative: etomidate Paralytic: rocuronium Laryngoscope: fiber optic video scope Assist device used: fiber optic device ET tube size: 7.5 Tube secured depth (cm): 23 Tube secured location: lips Tube placement confirmation: visualized tube passing through cords, equal breath sounds bilaterally, no breath sounds over epigastrium and confirmation by capnometry Patient tolerated procedure: well and no complications Intubation complications: none Additional comments: After obtaining consent from the daughter and explaining the rationale for intubation. it was decided to go ahead and intubate the patient. The patient was lying in the supine position. Preoxygenation via BVM was provided for a minimum of 3 minutes. The patient had continuous cardiac as well as pulse oximetry monitoring during the procedure. Rapid sequence induction was provided by administration of Etomidate and rocuronium. A Glidescope blade 4 was used to directly visualize the vocal cords. A 7.5 mm endotracheal tube was visualized advancing between the cords to a level of 23 cm at the lip. The stylette was then removed. Tube placement was also noted by fogging in the tube, equal and bilateral breath sounds, no sounds over the epigastrium, and end-tidal colorimetric monitoring. The cuff was then inflated with 10 ml of air and the tube secured using a commercially available device. A good pulse oximetry wave form was seen on the monitor throughout the procedure. The patient was then connected to the ventilator at a tidal volume of 300 ml; rate of 28; FiO2 of 100%; and PEEP of 12. A portable chest x-ray has been ordered for placement. Continued sedation will be provided by [Fentanyl and Versed] continuous infusion titrated to a RASS of -2. The patient tolerated the procedure well.
--- NOTE | 2020-10-18 15:06 | PM.IMPN ---
Progress Note: A&P Assessment and Plan (1) Infiltrate of lung present on chest x-ray: Code(s): R91.8 - Other nonspecific abnormal finding of lung field Status: Acute Assessment and Plan: Patient on Remdesivir and Dexamethasone Worsened (2) Acute respiratory failure with hypoxia: Code(s): J96.01 - Acute respiratory failure with hypoxia Status: Acute Assessment and Plan: Currently on ventilator support. Appreciate CC/Int note. (3) COPD (chronic obstructive pulmonary disease): Code(s): J44.9 - Chronic obstructive pulmonary disease, unspecified Status: Chronic Assessment and Plan: On vent currently (4) CAD (coronary artery disease): Code(s): I25.10 - Atherosclerotic heart disease of [place] coronary artery without angina pectoris Status: Chronic Assessment and Plan: Stable. (5) Pneumonia due to COVID-19 virus: Code(s): U07.1 - COVID-19; J12.89 - Other viral pneumonia Status: Acute Assessment and Plan: Worsening infiltrates. Remdesivir and Dexamethasone. Subjective Date/time seen: 10/18/20 15:06 Patient is now s/p intubation and on vent. Review of Systems Review of Systems: Narrative: Patient seen thru glass door. Exam Narrative: Exam Narrative: Patient seen thru glass door, on high flow oxygen. Not examined. Exam limited to inspection. Const: General: cooperative Nutritional Appearance: overweight HENMT: Head: normocephalic Neck: Neck: normal visual inspection and supple Resp: Effort & Inspection: tachypneic Objective Data Vital Signs Vital Signs: Vital Signs - 24 hr 10/17/20 16:00 10/17/20 18:00 10/17/20 20:00 Temperature 98.7 F Pulse Rate 70 72 77 Respiratory Rate 16 22 H 16 Blood Pressure 140/83 142/83 H 154/86 H Pulse Oximetry 90 89 L 89 L 10/17/20 20:01 10/17/20 20:03 10/17/20 22:00 Temperature Pulse Rate 94 72 72 Respiratory Rate 24 H 20 Blood Pressure 148/89 H Pulse Oximetry 88 L 10/18/20 00:00 10/18/20 02:00 10/18/20 02:51 Temperature 98.4 F Pulse Rate 70 76 83 Respiratory Rate 17 19 22 H Blood Pressure 140/79 141/89 H Pulse Oximetry 90 87 L 90 10/18/20 04:00 10/18/20 06:00 10/18/20 07:51 Temperature 98.1 F Pulse Rate 80 96 101 H Respiratory Rate 19 24 H Blood Pressure 152/94 H 151/91 H Pulse Oximetry 89 L 89 L 10/18/20 08:00 10/18/20 09:00 10/18/20 09:42 Temperature 98.0 F Pulse Rate 96 103 H 103 H Respiratory Rate 16 25 H Blood Pressure 148/81 H Pulse Oximetry 86 L 92 10/18/20 10:00 10/18/20 10:20 10/18/20 11:04 Temperature Pulse Rate 98 104 H 99 Respiratory Rate 25 H 28 H Blood Pressure 122/95 H 124/80 Pulse Oximetry 75 L 87 L 10/18/20 11:12 10/18/20 11:14 10/18/20 12:00 Temperature Pulse Rate 96 92 Respiratory Rate 28 H 28 H Blood Pressure 100/75 Pulse Oximetry 91 91 93 10/18/20 12:36 10/18/20 13:17 10/18/20 13:23 Temperature Pulse Rate 92 89 88 Respiratory Rate 28 H 28 H Blood Pressure Pulse Oximetry 95 95 10/18/20 13:32 10/18/20 13:33 10/18/20 14:00 Temperature Pulse Rate 87 87 84 Respiratory Rate 28 H 28 H 28 H Blood Pressure 100/73 115/80 Pulse Oximetry 96 Intake/Output Intake/Output: Intake & Output 10/15/20 10/16/20 10/17/20 10/18/20 23:59 23:59 23:59 23:59 Intake Total 480 120 950 320 Output Total 900 825 800 400 Balance -420 -705 150 -80 Meds/Results Medications: Active Medications Generic Name Dose Route Start Last Admin Trade Name Freq PRN Reason Stop Dose Admin Acetaminophen 650 mg 10/10/20 04:24 10/16/20 17:09 Acetaminophen 325 Mg Tablet PO 650 mg Q4H PRN Administration Mild Pain (1-3) or Fever Albuterol 2.5 mg 10/18/20 14:00 Albuterol Sulfate Neb 2.5 Mg/0.5 Ml Inh INHALATION Q6HRT SHARI Amitriptyline HCl 25 mg 10/07/20 23:40 10/15/20 20:57 Amitriptyline Hcl 25 Mg Tablet PO 25 mg HS SHARI Administration A
[2020-10-18 16:30] LABS: Alveolar/Arterial O2 Gradient 544.5 mmHg; Base Excess ABG -2.9 mEq/l (+/-2.0); Carboxyhemoglobin 0.3 % THb (0-2.0); Fractional Inspired Oxygen 100 %; HCO3 ABG 24.7 mEq/l (22.0-26.0); Oxygen Content ABG 17.2 %vol (16.0-22.0); Oxygen Saturation ABG 97.5 % (95.0-100.0); Oxyhemoglobin 96.3 % THb (90.0-100.0); PCO2 ABG 55.3 mmHg (35.0-45.0); PO2 ABG 113.2 mmHg (80.0-100.0); PO2 FiO2 Ratio Arterial Blood 1.13 %; Reduced Hemoglobin 3.4 %THb (0-5.0); Total Hemoglobin 12.6 g/dL (12.0-18.0)
[2020-10-18 16:33] LABS: Device VENTILATOR; Modified Allen's Test Pass; Site Drawn LEFT RADIAL; pH ABG 7.268 (7.350-7.450)
[2020-10-18 16:34] LABS: Arterial Blood Gas PEEP 12 cmH2O; Arterial Blood Gas Tidal Volume 300 ml; Arterial Blood Gas Vent Mode CMV; Arterial Blood Gas Ventilator rate 28 /MIN
[2020-10-18 16:35] LABS: Arterial Blood Gas Pressure Support 0 cmH2O
[2020-10-18] MEDS: PROPOFOL IV EMULSION 100 ML 15.5 MG IV CONT (18:54)
[2020-10-18 22:38] LABS: Alveolar/Arterial O2 Gradient 491.7 mmHg; Base Excess ABG -3.4 mEq/l (+/-2.0); Carboxyhemoglobin 0.3 % THb (0-2.0); Fractional Inspired Oxygen 90 %; HCO3 ABG 25.1 mEq/l (22.0-26.0); Methemoglobin ABG 0.2 %THb (0-1.5); Oxygen Saturation ABG 94.6 % (95.0-100.0); Oxyhemoglobin 93.2 % THb (90.0-100.0); PO2 ABG 86.7 mmHg (80.0-100.0); PO2 FiO2 Ratio Arterial Blood 0.96 %; Reduced Hemoglobin 6.3 %THb (0-5.0); Total Hemoglobin 12.9 g/dL (12.0-18.0)
[2020-10-18 22:39] LABS: PCO2 ABG 61.8 mmHg (35.0-45.0); Site Drawn LEFT BRACHIAL; pH ABG 7.227 (7.350-7.450)
[2020-10-18 22:40] LABS: Arterial Blood Gas PEEP 12 cmH2O; Arterial Blood Gas Tidal Volume 300 ml; Arterial Blood Gas Vent Mode CMV; Arterial Blood Gas Ventilator rate 28 /MIN; Device VENTILATOR
[2020-10-18] MEDS: CISATRACURIUM BESYLATE 200 MG in DEXTROSE 5% 80 ML 6.2 ML IV CONT (23:44)
[2020-10-19] VITALS (42 sets, daily range): BP systolic 88–126; BP diastolic 65–90; PULSE 78–124; RESP 30; TEMP 35.6–37.1; O2SAT 89–98; BMI 41.5
[2020-10-19 00:04] LABS: Glucose Point of Care 120 (65-105)
[2020-10-19] MEDS: PROPOFOL IV EMULSION 100 ML 15.5 MG IV CONT ×2 (01:26→08:00)
[2020-10-19] MEDS: EPOPROSTENOL SODIUM 0.5 MG VIAL 1 MG INHALATION ×2 (05:24→11:48)
[2020-10-19] MEDS: CENTRAL LINE FLUSH 10 ML IV PUSH ×3 (05:36→20:02)
[2020-10-19 05:46] LABS: Hematocrit 36.2 % (37.0-47.0); Hemoglobin 11.7 g/dL (12.0-15.0); Mean Corpuscular HGB Conc 32.3 g/dl (32-36); Mean Corpuscular Volume 95.8 fl (80-100); Mean Platelet Volume 9.6 fl (7.4-10.4); Platelet Count Result 525 k/mm3 (150-375); Red Blood Count 3.78 M/mm3 (4.2-5.4); Red Cell Distribution Width 13.3 % (11.5-14.5); White Blood Count 21.5 K/mm3 (4.5-10.0)
--- NOTE | 2020-10-19 05:46 | ECG_ITS ---
Measurements Intervals [employer] Rate: 119 P: AR: 0 QRS: 18 QRSD: 91 T: -13 QT: 336 QTc: 474 Interpretive Statements ATRIAL FIBRILLATION WITH RAPID VENTRICULAR RESPONSE LEFT VENTRICULAR HYPERTROPHY WITH ST-T CHANGE BORDERLINE ST-T WAVE ABNORMALITY- INF/LAT LEADS ABNORMAL ECG Electronically Signed On 10-19-2020 10:56:31 MEDICAL RECORDS CLERK by Amish Rodrigues D.O.
[2020-10-19 05:56] LABS: Anion Gap 10 mmol/L (8-16); Blood Urea Nitrogen 58 mg/dL (7-17); Carbon Dioxide 27 mmol/L (22-30); Chloride 96 mmol/L (98-107); Estimated CRCL calculation 26 ml/min; Estimated Glomerular Filt Rate 24; Glucose 104 mg/dL (65-105); Magnesium 3.4 mg/dL (1.6-2.3); Phosphorus 8.9 mg/dL (2.5-4.5); Potassium 5.3 mmol/L (3.4-5.0); Sodium 133 mmol/L (137-145)
[2020-10-19 06:42] LABS: Base Excess ABG -4.8 mEq/l (+/-2.0); Carboxyhemoglobin 0.3 % THb (0-2.0); Fractional Inspired Oxygen 90 %; HCO3 ABG 21.9 mEq/l (22.0-26.0); Methemoglobin ABG 0.1 %THb (0-1.5); Oxygen Content ABG 17.3 %vol (16.0-22.0); Oxygen Saturation ABG 98.7 % (95.0-100.0); Oxyhemoglobin 97.4 % THb (90.0-100.0); PCO2 ABG 47.4 mmHg (35.0-45.0); PO2 ABG 151.1 mmHg (80.0-100.0); PO2 FiO2 Ratio Arterial Blood 1.68 %; Reduced Hemoglobin 2.2 %THb (0-5.0); Total Hemoglobin 12.4 g/dL (12.0-18.0); pH ABG 7.283 (7.350-7.450)
[2020-10-19 06:43] LABS: Arterial Blood Gas PEEP 12 cmH2O; Arterial Blood Gas Tidal Volume 300 ml; Arterial Blood Gas Vent Mode CMV; Arterial Blood Gas Ventilator rate 30 /MIN; Device VENTILATOR; Modified Allen's Test Pass; Site Drawn LEFT RADIAL
[2020-10-19] MEDS: SODIUM CHLORIDE 0.9% IV 500 ML IV CONT (08:01)
[2020-10-19] MEDS: ASPIRIN 81 MG ENTERIC TABLET PO (08:20)
[2020-10-19] MEDS: DEXAMETHASONE SOD PHOS INJ 4 MG/ML VIAL 6 MG IV PUSH (08:20)
[2020-10-19] MEDS: ENOXAPARIN 40 MG/0.4 ML SYRINGE SUB-Q ×2 (08:20→20:01)
[2020-10-19] MEDS: PANTOPRAZOLE SODIUM IV 40 MG VIAL IV PUSH (08:20)
[2020-10-19] MEDS: guaiFENesin 12 HR 600 MG TABCR 1200 MG PO ×2 (08:20→20:01)
[2020-10-19] MEDS: DEXTROSE 50% 25 GM/50 ML SYRINGE IV PUSH (09:02)
[2020-10-19] MEDS: INSULIN HUMAN REGULAR (*BKC) 100 UNITS/ML 10 UNITS IV PUSH (09:02)
[2020-10-19] MEDS: SODIUM POLYSTYRENE SULFONONATE 15 GM/60 ML BTL 30 GM PO (09:02)
--- NOTE | 2020-10-19 10:55 | PCDIET ---
Nutrition Follow-Up Complete: Nutrition Diagnosis: Predicted suboptimal oral intake related to respiratory failure as evidenced by possible need for intubation. Nutrition Goal: Patient to meet estimated nutritional needs. Goal in progress. MD ordered to advance tube feedings toward goal with change to Nepro. Recommend 30mL/hr goal rate with current Propofol dose to prevent overfeeding. Last recorded weight is 103.1 kg which is stable with last review. Bowel Motility: No reported BM. MD aware. Last documented BM was 10/14/20. Labs Reviewed: Hgb (11.7), Hct (36.2), BUN (58), Cr (2.0), K (5.3), Na (133), PO4 (8.9) - s/p SPS Meds Noted: Albuterol, Cefepime, Nimbex, Decadron, Vancomycin, Atrovent, Protonix, Propofol (rate of 15.5mL/hr provides 409kcal per day) Additional Notes: Buttocks reddened, but intact. Will continue to monitor with same goal. Nutrition Monitoring and Evaluation: Follow up every Friday/Friday.
--- NOTE | 2020-10-19 12:28 | WPDINTPN ---
Progress Note: A&P Assessment and Plan (1) Acute respiratory failure with hypoxia: Code(s): J96.01 - Acute respiratory failure with hypoxia Status: Acute Assessment and Plan: Acute hypoxic respiratory failure likely related to COVID-19 pneumonia -on 10/18 patient desaturated on high-flow therapy, 60 L flow rate and 94% FiO2 with 100% non-rebreather mask. -intubated on 10/18/2020 -ARDS physiology, low tidal volume strategy. Currently on 90% FiO2 and peep of 12. ABGs showed a PO2 of 151. -patient on Flolan, will start weaning Flolan to off before adjusting the ventilator. Maintain O2 sats greater than 92% -patient sedated with propofol, is also on Nimbex for neuromuscular blockade (2) Pneumonia due to COVID-19 virus: Code(s): U07.1 - COVID-19; J12.89 - Other viral pneumonia Status: Acute Assessment and Plan: COVID-19 pneumonia - patient has received a 5 day course of Remdesivir which was completed on 10/11/2020. - on dexamethasone 10/03/2020 -received convalescent plasma on 10/14/2020 -continue contact, droplet, airborne isolation/precautions (3) COPD (chronic obstructive pulmonary disease): Code(s): J44.9 - Chronic obstructive pulmonary disease, unspecified Status: Chronic Assessment and Plan: Continue bronchodilators (4) Leukocytosis: Code(s): D72.829 - Elevated white blood cell count, unspecified Status: Acute Assessment and Plan: Worsening Leukocytosis without fevers, worsening chest x-ray, blood and urine cultures are negative. Will repeat sputum culture White blood cell count elevation could be related to steroids, given her worsening chest x-ray will start her on empiric antibiotics with vancomycin and cefepime (initiated on 10/17/2020) (5) Hypertension: Code(s): I10 - Essential (primary) hypertension Status: Chronic Assessment and Plan: Will hold atenolol, blood pressures are borderline likely due to positive pressure ventilation and propofol (6) Ulcerative colitis: Code(s): K51.90 - Ulcerative colitis, unspecified, without complications Status: Chronic Assessment and Plan: Continue mesalamine (7) DVT prophylaxis: Code(s): Z29.9 - Encounter for prophylactic measures, unspecified Status: Acute Assessment and Plan: DVT prophylaxis: Lovenox 40 mg SQ q.12 hours Stress ulcer prophylaxis: Protonix as patient on steroids Additional Plan updated family Code status: Full code Critical care time spent: 34 minutes Due to a high probability of clinically significant, life threatening deterioration, the patient required my highest level of preparedness to intervene emergently and I personally spent this critical care time directly and personally managing the patient. This critical care time included obtaining a history; examining the patient; pulse oximetry; ordering and review of studies; arranging urgent treatment with development of a management plan; evaluation of patient's response to treatment; frequent reassessment; and discussions with other providers. It was exclusive of separately billable procedures and treating other patients and teaching time. Please see Assessment and Plan section and the rest of the note for further information on patient assessment and treatment Subjective Date/time seen: 10/19/20 12:28 Interval history: Reason for consult: COVID-19 19 pneumonia, acute hypoxic respiratory failure -intubated 10/18/2020 10/19/2020: Patient remains intubated on CMV mode of ventilation, 90% FiO2, peep of 12, low tidal volume strategy for ARDS. Patient on Flolan. Renal function worsen, hyperkalemia. Decreased urine output. Chest x-ray with worsening the right side. Patient is sedated with propofol, neuromuscular blocka Review of Systems Review of Systems: ROS unobtainable: Yes unobtainable due to endotracheal tube Exam Const: General: comfortable and no acute
[2020-10-19 12:31] LABS: Glucose Point of Care 156 (65-105)
[2020-10-19] MEDS: PROPOFOL IV EMULSION 100 ML 18.59 MG IV CONT ×3 (12:36→23:00)
[2020-10-19 13:30] LABS: Anion Gap 7 mmol/L (8-16); Blood Urea Nitrogen 63 mg/dL (7-17); Calcium 8.5 mg/dL (8.4-10.2); Carbon Dioxide 26 mmol/L (22-30); Chloride 98 mmol/L (98-107); Estimated CRCL calculation 26 ml/min; Estimated Glomerular Filt Rate 24; Glucose 195 mg/dL (65-105); Potassium 5.1 mmol/L (3.4-5.0); Sodium 131 mmol/L (137-145)
[2020-10-19] MEDS: EPOPROSTENOL SODIUM 0.5 MG VIAL INHALATION ×2 (14:36→20:09)
[2020-10-19] MEDS: CISATRACURIUM BESYLATE 200 MG in DEXTROSE 5% 80 ML IV CONT (16:29)
[2020-10-19 16:55] LABS: Glucose Point of Care 161 (65-105)
--- NOTE | 2020-10-19 17:29 | PM.IMPN ---
Progress Note: A&P Assessment and Plan (1) Infiltrate of lung present on chest x-ray: Code(s): R91.8 - Other nonspecific abnormal finding of lung field Status: Acute Assessment and Plan: Completed course of Remdesivir Vanc and Cefepime currently (2) Acute respiratory failure with hypoxia: Code(s): J96.01 - Acute respiratory failure with hypoxia Status: Acute Assessment and Plan: On Vent support Appreciate Int/CC note (3) Pneumonia due to COVID-19 virus: Code(s): U07.1 - COVID-19; J12.89 - Other viral pneumonia Status: Acute Assessment and Plan: Completed Remdesivir and Dexamethasone. (4) Acute respiratory failure with hypoxia: Code(s): J96.01 - Acute respiratory failure with hypoxia Status: Acute Assessment and Plan: On life support Subjective Date/time seen: 10/19/20 17:29 On life support. Exam Narrative: Exam Narrative: Patient seen thru the glass, exam is limited to inspection. Objective Data Vital Signs Vital Signs: Vital Signs - 24 hr 10/18/20 18:00 10/18/20 18:34 10/18/20 18:38 Temperature Pulse Rate 81 84 82 Respiratory Rate 28 H 28 H Blood Pressure 108/77 Pulse Oximetry 97 96 96 10/18/20 18:54 10/18/20 20:00 10/18/20 20:15 Temperature 96.6 F L Pulse Rate 85 82 84 Respiratory Rate 25 H 28 H 28 H Blood Pressure 102/77 102/77 Pulse Oximetry 95 10/18/20 22:00 10/18/20 22:05 10/18/20 22:13 Temperature Pulse Rate 84 84 84 Respiratory Rate 28 H 28 H Blood Pressure 100/77 Pulse Oximetry 94 93 94 10/18/20 23:44 10/19/20 00:00 10/19/20 00:05 Temperature 96.7 F L Pulse Rate 84 82 78 Respiratory Rate 30 H 30 H Blood Pressure 100/74 101/77 Pulse Oximetry 96 96 10/19/20 00:15 10/19/20 01:22 10/19/20 01:26 Temperature Pulse Rate 81 85 85 Respiratory Rate 30 H 30 H 30 H Blood Pressure Pulse Oximetry 96 10/19/20 02:00 10/19/20 02:10 10/19/20 02:20 Temperature Pulse Rate 91 98 89 Respiratory Rate 30 H 30 H Blood Pressure 101/67 Pulse Oximetry 96 97 97 10/19/20 04:00 10/19/20 04:16 10/19/20 05:25 Temperature 97.1 F L Pulse Rate 124 H 100 121 H Respiratory Rate 30 H 30 H 30 H Blood Pressure 88/65 L Pulse Oximetry 97 98 10/19/20 05:29 10/19/20 06:00 10/19/20 07:54 Temperature Pulse Rate 122 H 97 88 Respiratory Rate 30 H 30 H Blood Pressure 126/65 Pulse Oximetry 98 97 10/19/20 08:00 10/19/20 08:10 10/19/20 09:30 Temperature 96.0 F L Pulse Rate 91 92 113 H Respiratory Rate 30 H 30 H 30 H Blood Pressure 114/82 Pulse Oximetry 97 97 10/19/20 10:00 10/19/20 10:20 10/19/20 11:45 Temperature Pulse Rate 113 H 115 H 118 H Respiratory Rate 30 H 30 H 30 H Blood Pressure 117/90 Pulse Oximetry 89 L 97 96 10/19/20 12:00 10/19/20 12:18 10/19/20 12:34 Temperature 96.1 F L Pulse Rate 110 H 118 H 110 H Respiratory Rate 30 H 30 H Blood Pressure 104/66 104/66 Pulse Oximetry 94 96 10/19/20 12:36 10/19/20 14:00 10/19/20 14:15 Temperature Pulse Rate 110 H 91 92 Respiratory Rate 30 H 30 H 30 H Blood Pressure 109/72 Pulse Oximetry 95 95 10/19/20 14:37 10/19/20 16:00 10/19/20 16:29 Temperature 97.4 F L Pulse Rate 91 92 93 Respiratory Rate 30 H 30 H 30 H Blood Pressure 122/79 122/79 Pulse Oximetry 94 94 10/19/20 16:30 Temperature Pulse Rate 87 Respiratory Rate Blood Pressure Pulse Oximetry 97 Intake/Output Intake/Output: Intake & Output 10/16/20 10/17/20 10/18/20 10/19/20 23:59 23:59 23:59 23:59 Intake Total 013 092 9192 1775 Output Total 825 800 650 275 Balance -705 777 706 8748 Meds/Results Medications: Active Medications Generic Name Dose Route Start Last Admin Trade Name Freq PRN Reason Stop Dose Admin Acetaminophen 650 mg 10/10/20 04:24 10/16/20 17:09 Acetaminophen 325 Mg Tablet PO 650 mg Q4H PRN Administration Mild Pain (1-3) or Fever Albuterol 2.5
[2020-10-19 17:49] LABS: Vancomycin Trough 19.8 ug/mL (10.0-20.0)
[2020-10-19 23:09] LABS: Glucose Point of Care 132 (65-105)
[2020-10-20] VITALS (43 sets, daily range): BP systolic 107–159; BP diastolic 50–95; PULSE 72–141; RESP 13–30; TEMP 36.4–37.1; O2SAT 90–96
[2020-10-20] MEDS: EPOPROSTENOL SODIUM 0.5 MG VIAL INHALATION ×3 (04:07→20:53)
[2020-10-20] MEDS: PROPOFOL IV EMULSION 100 ML 18.59 MG IV CONT ×4 (04:23→20:19)
[2020-10-20 04:25] LABS: Base Excess ABG -3.3 mEq/l (+/-2.0); Carboxyhemoglobin 0.1 % THb (0-2.0); Fractional Inspired Oxygen 85 %; HCO3 ABG 24.3 mEq/l (22.0-26.0); Oxygen Content ABG 16.4 %vol (16.0-22.0); Oxygen Saturation ABG 94.7 % (95.0-100.0); Oxyhemoglobin 94.2 % THb (90.0-100.0); PCO2 ABG 55.1 mmHg (35.0-45.0); PO2 ABG 83.9 mmHg (80.0-100.0); PO2 FiO2 Ratio Arterial Blood 0.99 %; Reduced Hemoglobin 5.7 %THb (0-5.0); Total Hemoglobin 12.3 g/dL (12.0-18.0)
[2020-10-20 04:27] LABS: Modified Allen's Test Pass; Site Drawn RIGHT RADIAL; pH ABG 7.263 (7.350-7.450)
[2020-10-20 04:28] LABS: Arterial Blood Gas PEEP 12 cmH2O; Arterial Blood Gas Vent Mode CMV; Arterial Blood Gas Ventilator rate 30 /MIN; Device VENTILATOR
[2020-10-20 04:29] LABS: Arterial Blood Gas Tidal Volume 300 ml
[2020-10-20 06:51] LABS: Hematocrit 34.5 % (37.0-47.0); Hemoglobin 11.4 g/dL (12.0-15.0); Mean Corpuscular Hemoglobin 31.2 pg (26-34); Mean Corpuscular Volume 94.5 fl (80-100); Mean Platelet Volume 9.7 fl (7.4-10.4); Platelet Count Result 489 k/mm3 (150-375); Red Blood Count 3.65 M/mm3 (4.2-5.4); Red Cell Distribution Width 13.1 % (11.5-14.5); White Blood Count 20.2 K/mm3 (4.5-10.0)
[2020-10-20 07:05] LABS: Alanine Aminotransferase 88 U/L (4-35); Albumin Level 3.1 g/dL (3.5-5.1); Alkaline Phosphatase 167 U/L (38-126); Anion Gap 7 mmol/L (8-16); Aspartate Amino Transferase 68 U/L (14-36); Bilirubin,Total 0.4 mg/dL (0.2-1.3); Blood Urea Nitrogen 72 mg/dL (7-17); Calcium 8.6 mg/dL (8.4-10.2); Carbon Dioxide 28 mmol/L (22-30); Chloride 98 mmol/L (98-107); Estimated CRCL calculation 29 ml/min; Estimated Glomerular Filt Rate 28; Glucose 140 mg/dL (65-105); Magnesium 3.2 mg/dL (1.6-2.3); Phosphorus 6.4 mg/dL (2.5-4.5); Potassium 4.7 mmol/L (3.4-5.0); Sodium 133 mmol/L (137-145)
[2020-10-20] MEDS: CENTRAL LINE FLUSH 10 ML IV PUSH ×3 (08:01→20:21)
[2020-10-20] MEDS: ENOXAPARIN 40 MG/0.4 ML SYRINGE SUB-Q (08:25)
[2020-10-20] MEDS: ASPIRIN 81 MG ENTERIC TABLET PO (08:25)
[2020-10-20] MEDS: DEXAMETHASONE SOD PHOS INJ 4 MG/ML VIAL 6 MG IV PUSH (08:25)
[2020-10-20] MEDS: guaiFENesin 12 HR 600 MG TABCR 1200 MG PO (08:26)
[2020-10-20] MEDS: PANTOPRAZOLE SODIUM IV 40 MG VIAL IV PUSH (08:26)
[2020-10-20 08:51] LABS: Glucose Point of Care 171 (65-105)
[2020-10-20] MEDS: AMIODARONE 150 MG/D5W 100 ML 150 MG/100 ML BAG 600 MG IV CONT (10:30)
[2020-10-20] MEDS: AMIODARONE 360 MG/D5W 200 ML 360 MG/200 ML BAG 33.33 MG IV CONT (10:37)
--- NOTE | 2020-10-20 11:31 | PCDIET ---
Nutrition Follow-Up Complete: Nutrition Diagnosis: Predicted suboptimal oral intake related to respiratory failure as evidenced by possible need for intubation. Nutrition Goal: Patient to meet estimated nutritional needs. Goal met. Patient tolerating Nepro at 30mL/hr goal rate. Plan to prone patient today. Last recorded weight is 103.1 kg which is stable with last review. +I/O. Bowel Motility: No documented BM. If medically appropriate, would consider addition of medication to promote BM. Labs Reviewed: Hgb (11.4), Hct (34.5), Glu (140), BUN (72), Cr (1.8), Na (133), Alb (3.1), PO4 (6.4), Mg (3.2) Meds Noted: Albuterol, Vancomycin, Cefepime, Nimbex, Decadron, Novolog, Atrovent, Protonix, Propofol (rate of 18.59mL/hr provides 490kcal per day) Additional Notes: Buttocks reddened; no open areas documented. Will continue to monitor with same goal. Nutrition Monitoring and Evaluation: Follow up every 3 days.
[2020-10-20] MEDS: INSULIN ASPART (*BKC) 100 UNITS/ML SUB-Q ×2 (12:06→17:59)
[2020-10-20 12:14] LABS: Glucose Point of Care 279 (65-105)
--- NOTE | 2020-10-20 14:46 | WPDINTPN ---
Progress Note: A&P Assessment and Plan (1) Acute respiratory failure with hypoxia: Code(s): J96.01 - Acute respiratory failure with hypoxia Status: Acute Assessment and Plan: Acute hypoxic respiratory failure likely related to COVID-19 pneumonia -on 10/18 patient desaturated on high-flow therapy, 60 L flow rate and 94% FiO2 with 100% non-rebreather mask. -intubated on 10/18/2020 -chest x-ray shows worsening on diffuse lung disease at bases -ARDS physiology, low tidal volume strategy. Currently on 85% FiO2 and peep of 12. ABGs reviewed -[place] [address] units, patient remained stable with oxygenation will discontinue Flolan in a.m. Maintain O2 sats greater than 92% -patient sedated with propofol, is also on Nimbex for neuromuscular blockade -patient has been proned today (2) Pneumonia due to COVID-19 virus: Code(s): U07.1 - COVID-19; J12.89 - Other viral pneumonia Status: Acute Assessment and Plan: COVID-19 pneumonia - patient has received a 5 day course of Remdesivir which was completed on 10/11/2020. - on dexamethasone which was initiated on 10/13/2020 -received convalescent plasma on 10/14/2020 -continue contact, droplet, airborne isolation/precautions (3) COPD (chronic obstructive pulmonary disease): Code(s): J44.9 - Chronic obstructive pulmonary disease, unspecified Status: Chronic Assessment and Plan: Continue bronchodilators (4) Leukocytosis: Code(s): D72.829 - Elevated white blood cell count, unspecified Status: Acute Assessment and Plan: Worsening Leukocytosis without fevers, worsening chest x-ray, blood and urine cultures are negative. Will repeat sputum culture White blood cell count elevation could be related to steroids, given her worsening chest x-ray will start her on empiric antibiotics with vancomycin and cefepime (initiated on 10/17/2020) -10/17 urine cultures are negative -10/17 sputum sample father culture was unacceptable, will repeat sputum culture -10/17 blood cultures negative x2 (5) Hypertension: Code(s): I10 - Essential (primary) hypertension Status: Chronic Assessment and Plan: Will hold atenolol, blood pressures are borderline likely due to positive pressure ventilation and propofol (6) Ulcerative colitis: Code(s): K51.90 - Ulcerative colitis, unspecified, without complications Status: Chronic Assessment and Plan: Continue mesalamine (7) DVT prophylaxis: Code(s): Z29.9 - Encounter for prophylactic measures, unspecified Status: Acute Assessment and Plan: DVT prophylaxis: Lovenox 40 mg SQ q.12 hours Stress ulcer prophylaxis: Protonix as patient on steroids (8) Afib: Code(s): I48.91 - Unspecified atrial fibrillation Status: Acute Assessment and Plan: Likely related to respiratory distress, on amiodarone infusion -will increase Lovenox to therapeutic dose Additional Plan Discussed with Deanne, patient's daughter and updated her with patient's condition and plan of care. She is aware that patient is still on a high ventilatory support, condition is still guarded, I did tell her that we have prone the patient today. Also discussed with her regarding her increasing urine output and slight improvement neck renal function. Code status: Full code Critical care time spent: 35 minutes Due to a high probability of clinically significant, life threatening deterioration, the patient required my highest level of preparedness to intervene emergently and I personally spent this critical care time directly and personally managing the patient. This critical care time included obtaining a history; examining the patient; pulse oximetry; ordering and review of studies; arranging urgent treatment with development of a management plan; evaluation of patient's response to treatment; frequent reassessment; and discussions with other providers. It was excl
[2020-10-20] MEDS: EPOPROSTENOL SODIUM 0.5 MG VIAL 1 MG INHALATION (14:52)
[2020-10-20] MEDS: AMIODARONE 360 MG/D5W 200 ML 360 MG/200 ML BAG 16.67 MG IV CONT (15:47)
--- NOTE | 2020-10-20 16:45 | PM.IMPN ---
Progress Note: A&P Assessment and Plan (1) Acute respiratory failure with hypoxia: Code(s): J96.01 - Acute respiratory failure with hypoxia Status: Acute Assessment and Plan: On ventilator support (2) COPD (chronic obstructive pulmonary disease): Code(s): J44.9 - Chronic obstructive pulmonary disease, unspecified Status: Chronic Assessment and Plan: Breathing treatments. (3) Pneumonia due to COVID-19 virus: Code(s): U07.1 - COVID-19; J12.89 - Other viral pneumonia Status: Acute Assessment and Plan: On Cefepime/Vanc/ Dexamethasone Completed course of Remdesivir. (4) Acute respiratory failure with hypoxia: Code(s): J96.01 - Acute respiratory failure with hypoxia Status: Acute Assessment and Plan: Continue life support Vent management as per Int/CC Subjective Date/time seen: 10/20/20 16:45 pATIENT IS ON LIFE SUPPORT. Review of Systems Review of Systems: Narrative: Unable to obtain as patient is on life support. Exam Narrative: Exam Narrative: On life support.Exam is limited to inspection patient seen thru glass door. Const: General: other (Under sedation in sync with vent.) Nutritional Appearance: average body habitus HENMT: Head: normal to inspection and normocephalic General nose exam: Normal external nose present Face and sinus: normal facial exam Other: ETT in place. Neck: Neck: supple Resp: Effort & Inspection: other (In sync with vent.) Skin: General skin exam: normal color Neuro: General: other (Sedated.) Extrem: General: normal to inspection Objective Data Vital Signs Vital Signs: Vital Signs - 24 hr 10/19/20 17:39 10/19/20 17:40 10/19/20 17:59 Temperature Pulse Rate 92 92 90 Respiratory Rate 30 H 30 H Blood Pressure Pulse Oximetry 95 95 10/19/20 18:00 10/19/20 18:14 10/19/20 20:00 Temperature 98.2 F Pulse Rate 97 90 81 Respiratory Rate 30 H 30 H 30 H Blood Pressure 120/80 120/78 Pulse Oximetry 95 96 10/19/20 20:15 10/19/20 20:17 10/19/20 22:00 Temperature Pulse Rate 87 87 79 Respiratory Rate 30 H 30 H Blood Pressure 107/76 Pulse Oximetry 96 96 95 10/19/20 22:15 10/19/20 23:00 10/20/20 00:00 Temperature 98.1 F Pulse Rate 80 80 Respiratory Rate 30 H 30 H Blood Pressure 109/76 Pulse Oximetry 96 96 10/20/20 00:15 10/20/20 02:00 10/20/20 02:15 Temperature Pulse Rate 87 90 96 Respiratory Rate 30 H Blood Pressure 150/95 H Pulse Oximetry 95 91 92 10/20/20 03:37 10/20/20 04:00 10/20/20 04:04 Temperature 97.6 F Pulse Rate 93 96 97 Respiratory Rate 30 H 30 H Blood Pressure 144/89 H Pulse Oximetry 92 93 93 10/20/20 04:23 10/20/20 06:00 10/20/20 06:07 Temperature Pulse Rate 100 100 Respiratory Rate 30 H 30 H Blood Pressure 159/77 H Pulse Oximetry 92 93 10/20/20 08:00 10/20/20 08:34 10/20/20 08:41 Temperature 98.7 F Pulse Rate 100 100 97 Respiratory Rate 30 H 30 H 30 H Blood Pressure 123/78 158/89 H Pulse Oximetry 92 91 10/20/20 08:49 10/20/20 09:18 10/20/20 10:00 Temperature Pulse Rate 99 96 Respiratory Rate 30 H 30 H Blood Pressure 123/78 Pulse Oximetry 90 93 10/20/20 10:30 10/20/20 10:37 10/20/20 10:41 Temperature Pulse Rate 140 H 141 H 109 H Respiratory Rate Blood Pressure 124/91 H 124/91 H 130/84 Pulse Oximetry 10/20/20 11:31 10/20/20 11:32 10/20/20 12:00 Temperature 97.9 F Pulse Rate 101 H 100 99 Respiratory Rate 30 H 30 H Blood Pressure 123/78 Pulse Oximetry 92 93 93 10/20/20 13:15 10/20/20 13:16 10/20/20 14:00 Temperature Pulse Rate 92 95 92 Respiratory Rate 30 H 20 Blood Pressure 107/70 Pulse Oximetry 92 94 96 10/20/20 14:25 10/20/20 14:52 10/20/20 14:53 Temperature Pulse Rate 92 91 90 Respiratory Rate 30 H 30 H Blood Pressure Pulse Oximetry 96 96 10/20/20 15:46 10/20/20 15:47 10/20/20 16:00 Temperature 98.7 F Pulse Rate 9
[2020-10-20] MEDS: CISATRACURIUM BESYLATE 200 MG in DEXTROSE 5% 80 ML 6.2 ML IV CONT (17:58)
[2020-10-20 18:05] LABS: Glucose Point of Care 216 (65-105)
[2020-10-20] MEDS: ENOXAPARIN 100 MG/ML SYRINGE SUB-Q (20:21)
[2020-10-21] VITALS (36 sets, daily range): BP systolic 89–113; BP diastolic 52–84; PULSE 97–131; RESP 20–106; TEMP 36.4–37.3; O2SAT 32–97
[2020-10-21] MEDS: PROPOFOL IV EMULSION 100 ML 18.59 MG IV CONT ×5 (01:42→20:47)
[2020-10-21] MEDS: EPOPROSTENOL SODIUM 0.5 MG VIAL INHALATION ×4 (02:44→22:21)
[2020-10-21 03:16] LABS: Glucose Point of Care 197 (65-105)
[2020-10-21] MEDS: AMIODARONE 360 MG/D5W 200 ML 360 MG/200 ML BAG 16.67 MG IV CONT (04:12)
[2020-10-21 04:43] LABS: Hematocrit 35.2 % (37.0-47.0); Hemoglobin 11.2 g/dL (12.0-15.0); Mean Corpuscular HGB Conc 31.8 g/dl (32-36); Mean Corpuscular Volume 97.5 fl (80-100); Mean Platelet Volume 9.9 fl (7.4-10.4); Platelet Count Result 457 k/mm3 (150-375); Red Blood Count 3.61 M/mm3 (4.2-5.4); White Blood Count 18.9 K/mm3 (4.5-10.0)
[2020-10-21 05:09] LABS: Alveolar/Arterial O2 Gradient 399.6 mmHg; Carboxyhemoglobin 0.3 % THb (0-2.0); Fractional Inspired Oxygen 90 %; HCO3 ABG 25.1 mEq/l (22.0-26.0); Methemoglobin ABG 0.1 %THb (0-1.5); Oxygen Content ABG 17.5 %vol (16.0-22.0); Oxygen Saturation ABG 98.8 % (95.0-100.0); Oxyhemoglobin 97.5 % THb (90.0-100.0); PO2 FiO2 Ratio Arterial Blood 1.93 %; Reduced Hemoglobin 2.1 %THb (0-5.0); Total Hemoglobin 12.5 g/dL (12.0-18.0)
[2020-10-21 05:11] LABS: PCO2 ABG 66.4 mmHg (35.0-45.0); pH ABG 7.196 (7.350-7.450)
[2020-10-21 05:12] LABS: Arterial Blood Gas Vent Mode CMV; Arterial Blood Gas Ventilator rate 30 /MIN; Device VENTILATOR; Modified Allen's Test Pass; Site Drawn LEFT RADIAL
[2020-10-21 05:13] LABS: Arterial Blood Gas PEEP 12 cmH2O; Arterial Blood Gas Tidal Volume 300 ml
[2020-10-21 05:15] LABS: Alanine Aminotransferase 66 U/L (4-35); Alkaline Phosphatase 153 U/L (38-126); Anion Gap 10 mmol/L (8-16); Aspartate Amino Transferase 29 U/L (14-36); Bilirubin,Total 0.3 mg/dL (0.2-1.3); Blood Urea Nitrogen 84 mg/dL (7-17); Calcium 8.2 mg/dL (8.4-10.2); Carbon Dioxide 27 mmol/L (22-30); Chloride 94 mmol/L (98-107); Estimated CRCL calculation 22 ml/min; Estimated Glomerular Filt Rate 20; Glucose 216 mg/dL (65-105); Magnesium 3.2 mg/dL (1.6-2.3); Phosphorus 8.3 mg/dL (2.5-4.5); Potassium 4.9 mmol/L (3.4-5.0); Sodium 131 mmol/L (137-145)
[2020-10-21] MEDS: INSULIN ASPART (*BKC) 100 UNITS/ML SUB-Q ×3 (06:03→17:05)
[2020-10-21] MEDS: CENTRAL LINE FLUSH 10 ML IV PUSH ×2 (06:10→20:49)
[2020-10-21] MEDS: ASPIRIN 81 MG ENTERIC TABLET PO (09:17)
[2020-10-21] MEDS: DEXAMETHASONE SOD PHOS INJ 4 MG/ML VIAL 6 MG IV PUSH (09:18)
[2020-10-21] MEDS: ENOXAPARIN 100 MG/ML SYRINGE SUB-Q ×2 (09:19→20:48)
[2020-10-21] MEDS: PANTOPRAZOLE SODIUM IV 40 MG VIAL IV PUSH (09:19)
--- NOTE | 2020-10-21 12:14 | WPDINTPN ---
Progress Note: A&P Assessment and Plan (1) Acute respiratory failure with hypoxia: Code(s): J96.01 - Acute respiratory failure with hypoxia Status: Acute Assessment and Plan: Acute hypoxic respiratory failure likely related to COVID-19 pneumonia -on 10/18 patient desaturated on high-flow therapy, 60 L flow rate and 94% FiO2 with 100% non-rebreather mask.. She was intubated on 10/18/2020 -chest x-ray shows worsening on diffuse lung disease at bases -ARDS physiology, low tidal volume strategy. ABG reviewed. Ventilator adjustment were made. Will increase tidal volume from 300-320 and respiratory rate from 30-32. With decrease FiO2 down to 70%. -[place] [address] units, patient remained stable with oxygenation. Maintain O2 sats greater than 92%. If her oxygenation is within acceptable range by tomorrow after she is weaned off from paralytics then may potentially start weaning Flolan as well. -patient sedated with propofo. Will add fentanyl for sedation and pain control. She is paralyzed with Nimbex but will start weaning it down and try to take her off paralytics completely towards the end of the day. -Patient was prone to overnight for 6-8 hours. (2) Pneumonia due to COVID-19 virus: Code(s): U07.1 - COVID-19; J12.89 - Other viral pneumonia Status: Acute Assessment and Plan: COVID-19 pneumonia - patient has received a 5 day course of Remdesivir which was completed on 10/11/2020. - on dexamethasone which was initiated on 10/13/2020 -received convalescent plasma on 10/14/2020 -continue contact, droplet, airborne isolation/precautions (3) COPD (chronic obstructive pulmonary disease): Code(s): J44.9 - Chronic obstructive pulmonary disease, unspecified Status: Chronic Assessment and Plan: Continue bronchodilators (4) Leukocytosis: Code(s): D72.829 - Elevated white blood cell count, unspecified Status: Acute Assessment and Plan: Worsening Leukocytosis without fevers, worsening chest x-ray, blood and urine cultures are negative. White blood cell count elevation could be related to steroids, given her worsening chest x-ray she has been started on antibiotics empirically. Continue her on empiric antibiotics with vancomycin and cefepime (initiated on 10/17/2020). Her sputum culture has been rejected by the lab because of non satisfactory sample. Will resend it today. Will stop vancomycin a.m. as cultures remain negative. Continue cefepime for a total of 7 days. -10/17 urine cultures are negative -10/17 blood cultures negative x2 (5) Hypertension: Code(s): I10 - Essential (primary) hypertension Status: Chronic Assessment and Plan: Will hold atenolol, blood pressures are borderline likely due to positive pressure ventilation and propofol (6) Ulcerative colitis: Code(s): K51.90 - Ulcerative colitis, unspecified, without complications Status: Chronic Assessment and Plan: Mesalamine is on hold (7) DVT prophylaxis: Code(s): Z29.9 - Encounter for prophylactic measures, unspecified Status: Acute Assessment and Plan: DVT prophylaxis: Lovenox with therapeutic dose Stress ulcer prophylaxis: Protonix (8) Afib: Code(s): I48.91 - Unspecified atrial fibrillation Status: Acute Assessment and Plan: Likely related to respiratory distress, on amiodarone infusion -continue Lovenox with a therapeutic dose Will stop amiodarone drip and put her on p.o. amiodarone with foreign mg twice a day. Additional Plan Patient's family has been updated regarding her clinical status. Code status: Full code Critical care time spent: 35 minutes Due to a high probability of clinically significant, life threatening deterioration, the patient required my highest level of preparedness to intervene emergently and I personally spent this critical care time directly and personally managing the patient. This
[2020-10-21 12:16] LABS: Glucose Point of Care 258 (65-105)
[2020-10-21] MEDS: FENTANYL 2,500MCG/NS250ML(*CRX 2,500 MCG/250 ML BAG IV CONT (14:00)
[2020-10-21] MEDS: AMIODARONE HCL 200 MG TABLET 400 MG PO (17:05)
--- NOTE | 2020-10-21 18:28 | PM.IMPN ---
Progress Note: A&P Assessment and Plan (1) Afib: Code(s): I48.91 - Unspecified atrial fibrillation Status: Acute Assessment and Plan: On Amiodarone po thru NG (2) Infiltrate of lung present on chest x-ray: Code(s): R91.8 - Other nonspecific abnormal finding of lung field Status: Acute Assessment and Plan: On Cefepime and Vancomycin (3) Acute respiratory failure with hypoxia: Code(s): J96.01 - Acute respiratory failure with hypoxia Status: Acute Assessment and Plan: On ventilator support. (4) Leukocytosis: Code(s): D72.829 - Elevated white blood cell count, unspecified Status: Acute Assessment and Plan: Continue to monitor. On Systemic steroids (5) Pneumonia due to COVID-19 virus: Code(s): U07.1 - COVID-19; J12.89 - Other viral pneumonia Status: Acute Assessment and Plan: Completed course of Remdesivir. (6) Acute respiratory failure with hypoxia: Code(s): J96.01 - Acute respiratory failure with hypoxia Status: Acute Assessment and Plan: On vent support. Subjective Date/time seen: 10/21/20 18:28 On life support. Review of Systems Review of Systems: Narrative: Unable to get a thorough review of systems as patient is on life support. Exam Narrative: Exam Narrative: Patient's examination is limited to inspection. Const: General: comfortable and other (On life support.) Nutritional Appearance: average body habitus HENMT: Head: normal to inspection and normocephalic Mouth: Yes other (ETT in place) Eyes: General: appearance normal, both eyes and all related structures Neck: Neck: supple Resp: Effort & Inspection: other (In sync with vent.) Neuro: General: other (Under sedation.) Objective Data Vital Signs Vital Signs: Vital Signs - 24 hr 10/20/20 19:01 10/20/20 20:00 10/20/20 20:19 Temperature Pulse Rate 96 98 96 Respiratory Rate 30 H 30 H 30 H Blood Pressure 130/77 Pulse Oximetry 95 10/20/20 20:57 10/20/20 20:58 10/20/20 22:00 Temperature Pulse Rate 97 98 98 Respiratory Rate 30 H 30 H Blood Pressure 142/78 H Pulse Oximetry 95 96 96 10/20/20 22:45 10/21/20 00:00 10/21/20 00:06 Temperature 97.6 F Pulse Rate 101 H 118 H 102 H Respiratory Rate 30 H Blood Pressure 104/76 Pulse Oximetry 95 95 95 10/21/20 00:07 10/21/20 02:00 10/21/20 02:44 Temperature Pulse Rate 101 H 119 H 101 H Respiratory Rate 30 H 30 H 30 H Blood Pressure 93/52 L Pulse Oximetry 95 97 94 10/21/20 02:45 10/21/20 03:00 10/21/20 04:00 Temperature 99.1 F Pulse Rate 109 H 108 H 120 H Respiratory Rate 30 H Blood Pressure 89/72 L 89/72 L Pulse Oximetry 97 96 10/21/20 04:13 10/21/20 04:56 10/21/20 05:08 Temperature Pulse Rate 124 H 120 H 104 H Respiratory Rate 30 H 30 H Blood Pressure 89/72 L Pulse Oximetry 97 96 10/21/20 05:54 10/21/20 06:00 10/21/20 08:00 Temperature 99 F Pulse Rate 119 H 116 H 116 H Respiratory Rate 30 H 30 H Blood Pressure 103/77 102/69 Pulse Oximetry 96 92 10/21/20 09:04 10/21/20 09:08 10/21/20 10:00 Temperature Pulse Rate 107 H 125 H 117 H Respiratory Rate 30 H 30 H Blood Pressure 103/79 Pulse Oximetry 95 95 94 10/21/20 10:56 10/21/20 11:27 10/21/20 11:37 Temperature Pulse Rate 117 H 124 H 116 H Respiratory Rate 30 H 30 H Blood Pressure Pulse Oximetry 92 92 10/21/20 12:00 10/21/20 13:31 10/21/20 13:51 Temperature 98.9 F Pulse Rate 115 H 112 H 117 H Respiratory Rate 106 H 32 H Blood Pressure 105/61 Pulse Oximetry 32 L 93 94 10/21/20 14:00 10/21/20 15:34 10/21/20 15:50 Temperature Pulse Rate 122 H 103 H 103 H Respiratory Rate 32 H 32 H 32 H Blood Pressure 110/77 Pulse Oximetry 93 91 10/21/20 16:00 10/21/20 16:50 10/21/20 16:56 Temperature 98.2 F Pulse Rate 106 H 114 H 108 H Respiratory Rate 32 H 32 H Blood Pressure 97/78 L Pulse Oximetry 95 96 9
[2020-10-21] MEDS: guaiFENesin 12 HR 600 MG TABCR 1200 MG PO (20:48)
[2020-10-22] VITALS (26 sets, daily range): BP systolic 103–161; BP diastolic 62–91; PULSE 90–122; RESP 21–35; TEMP 36.5–37.2; O2SAT 89–99
[2020-10-22 00:54] LABS: Glucose Point of Care 264 (65-105)
[2020-10-22] MEDS: PROPOFOL IV EMULSION 100 ML 18.59 MG IV CONT ×5 (02:10→17:15)
[2020-10-22 03:09] LABS: Glucose Point of Care 194 (65-105)
[2020-10-22] MEDS: EPOPROSTENOL SODIUM 0.5 MG VIAL INHALATION ×3 (04:46→19:51)
[2020-10-22 05:21] LABS: Alveolar/Arterial O2 Gradient 452.3 mmHg; Base Excess ABG -3.2 mEq/l (+/-2.0); Carboxyhemoglobin 0.3 % THb (0-2.0); Fractional Inspired Oxygen 80 %; HCO3 ABG 23.3 mEq/l (22.0-26.0); Methemoglobin ABG 0.3 %THb (0-1.5); Oxygen Content ABG 14.4 %vol (16.0-22.0); Oxygen Saturation ABG 91.3 % (95.0-100.0); Oxyhemoglobin 90.1 % THb (90.0-100.0); PCO2 ABG 48.5 mmHg (35.0-45.0); PO2 ABG 67.2 mmHg (80.0-100.0); PO2 FiO2 Ratio Arterial Blood 0.84 %; Reduced Hemoglobin 9.3 %THb (0-5.0); Total Hemoglobin 11.3 g/dL (12.0-18.0)
[2020-10-22 05:22] LABS: Arterial Blood Gas Ventilator rate 32 /MIN; Device VENTILATOR; Modified Allen's Test Pass; Site Drawn RIGHT RADIAL
[2020-10-22 05:23] LABS: Arterial Blood Gas PEEP 12 cmH2O; Arterial Blood Gas Tidal Volume 320 ml; Arterial Blood Gas Vent Mode CMV
[2020-10-22 05:36] LABS: Hematocrit 31.5 % (37.0-47.0); Hemoglobin 10.3 g/dL (12.0-15.0); Mean Corpuscular HGB Conc 32.7 g/dl (32-36); Mean Corpuscular Hemoglobin 30.7 pg (26-34); Platelet Count Result 399 k/mm3 (150-375); Red Blood Count 3.35 M/mm3 (4.2-5.4); Red Cell Distribution Width 13.2 % (11.5-14.5); White Blood Count 20.6 K/mm3 (4.5-10.0)
[2020-10-22 06:05] LABS: Alanine Aminotransferase 45 U/L (4-35); Alkaline Phosphatase 133 U/L (38-126); Anion Gap 10 mmol/L (8-16); Aspartate Amino Transferase 24 U/L (14-36); Bilirubin,Total 0.3 mg/dL (0.2-1.3); Blood Urea Nitrogen 109 mg/dL (7-17); Carbon Dioxide 25 mmol/L (22-30); Chloride 92 mmol/L (98-107); Estimated CRCL calculation 16 ml/min; Estimated Glomerular Filt Rate 13; Glucose 177 mg/dL (65-105); Phosphorus 6.9 mg/dL (2.5-4.5); Potassium 4.1 mmol/L (3.4-5.0); Sodium 127 mmol/L (137-145)
[2020-10-22] MEDS: CENTRAL LINE FLUSH 10 ML IV PUSH ×3 (07:42→20:39)
[2020-10-22] MEDS: ASPIRIN 81 MG ENTERIC TABLET PO (09:03)
[2020-10-22] MEDS: ENOXAPARIN 100 MG/ML SYRINGE SUB-Q ×2 (09:03→20:38)
[2020-10-22] MEDS: AMIODARONE HCL 200 MG TABLET 400 MG PO ×2 (09:03→17:18)
[2020-10-22] MEDS: PANTOPRAZOLE SODIUM IV 40 MG VIAL IV PUSH (09:03)
[2020-10-22] MEDS: DEXAMETHASONE SOD PHOS INJ 4 MG/ML VIAL 6 MG IV PUSH (09:04)
[2020-10-22] MEDS: INSULIN ASPART (*BKC) 100 UNITS/ML SUB-Q ×2 (11:33→17:18)
--- NOTE | 2020-10-22 13:10 | PM.CNNEP ---
Assessment and Plan Assessment and plan (1) JEFFERSON (acute kidney injury): Code(s): N17.9 - Acute kidney failure, unspecified Status: Acute Assessment and Plan: presumably due to COVID-19 infection check urine electrolytes and eosinophils check renal ultrasound concerning the UOP has declined in the last 24 hours follow trend of labs remains at risk for [employer]/dialysis (2) Acute respiratory failure with hypoxia: Code(s): J96.01 - Acute respiratory failure with hypoxia Status: Acute Assessment and Plan: due to COVID-19 (3) Pneumonia due to COVID-19 virus: Code(s): U07.1 - COVID-19; J12.89 - Other viral pneumonia Status: Acute Assessment and Plan: s/p 5 day course of Remdesivir on dexamethasone s/p convalescent plasma (on 10/14/2020) remains on contact, droplet, airborne isolation/precautions (4) Afib: Code(s): I48.91 - Unspecified atrial fibrillation Status: Acute Assessment and Plan: presumably due to acute illness and respiratory failure on amiodarone continue rate control strategy (5) Ulcerative colitis: Code(s): K51.90 - Ulcerative colitis, unspecified, without complications Status: Chronic Assessment and Plan: mesalamine on hold (6) Hypertension: Code(s): I10 - Essential (primary) hypertension Status: Chronic Assessment and Plan: BP on soft side (likely secondary to ventilator support) hold BP medications with parameters Will continue to follow. History of Present Illness Reason for Consult Consult date: 10/22/20 Reason for consult: acute renal failure Chief Complaint Chief complaint: covid pneumonia/hypoxia History of Present Illness Narrative: All of the information I have obtained is from review of the electronic medical record as well as discussion with the medical staff involved in her care as the patient is unable to provide me any history as she is currently intubated and on mechanical ventilation. The patient is a 70 year old female with significant past medical history as outlined below who initially presented to the hospital for shortness of breath. Her shortness of breath had been going on for about a week prior to admission Hannah been slowly/ progressively getting worse which led to her evaluation. Subsequent testing demonstrated that she was COVID-19 positive as of 10/01/2020. She was subsequently admitted the hospital for further evaluation and therapy. She was initially being treated on the medical floor with a combination of supplemental oxygen and standard COVID-19 interventions with regard to steroids, remdesivir, convalescent plasma, and ongoing respiratory therapy to maintain her oxygen saturations. Unfortunately, her respiratory status continued to decline with eventually requiring 100% non-rebreather to maintain her oxygen saturations in the 90 percentile range. Chest x-ray at that time demonstrated significant bilateral infiltrates / airspace disease and given the concern that her respiratory failure would continue to progress she was transferred to the ICU. Eventually, her respiratory status declined to the point where she required intubation and placement on mechanical ventilation. In the last several days has been noted that her kidney function has been slowly declining. Her BUN and creatinine have continued to increase on a daily basis. further concern has been raised by the appearance of her chest x-ray which seems to show a component of volume overload on top of Covid pneumonia and the fact that she is also starting to develop swelling /edema. Renal consultation was requested due to her acute kidney injury/acute renal failure. Labs on admission clearly demonstrate that her kidney functions well within normal limits. Unfortunately, as mentioned above, her kidney function has slowly deteriorated in the last 2-3 days presumably due to her acute illness and COVI
--- NOTE | 2020-10-22 13:16 | WPDINTPN ---
Progress Note: A&P Assessment and Plan (1) Acute respiratory failure with hypoxia: Code(s): J96.01 - Acute respiratory failure with hypoxia Status: Acute Assessment and Plan: Acute hypoxic respiratory failure likely related to COVID-19 pneumonia -on 10/18 patient desaturated on high-flow therapy, 60 L flow rate and 94% FiO2 with 100% non-rebreather mask.. She was intubated on 10/18/2020 -chest x-ray shows worsening on diffuse lung disease at bases -ARDS physiology, low tidal volume strategy. ABG reviewed. Currently she is on 100% FiO2 and PEEP of 16. Her tidal volume is 320 and respiratory rate of 32 which were adjusted yesterday because of hypercarbic respiratory failure. -[place] [address] units, patient remained stable with oxygenation. Maintain O2 sats greater than 92%. -patient is sedated with fentanyl and propofol. Continue to keep a RASS of -1. She is not a candidate for daily sedation vacation trial at this time. She was weaned off from Nimbex yesterday. Prone positioning if tolerated should improve her oxygenation. (2) Pneumonia due to COVID-19 virus: Code(s): U07.1 - COVID-19; J12.89 - Other viral pneumonia Status: Acute Assessment and Plan: COVID-19 pneumonia - patient has received a 5 day course of Remdesivir which was completed on 10/11/2020. - on dexamethasone which was initiated on 10/13/2020 -received convalescent plasma on 10/14/2020 -continue contact, droplet, airborne isolation/precautions (3) COPD (chronic obstructive pulmonary disease): Code(s): J44.9 - Chronic obstructive pulmonary disease, unspecified Status: Chronic Assessment and Plan: Continue bronchodilators (4) Leukocytosis: Code(s): D72.829 - Elevated white blood cell count, unspecified Status: Acute Assessment and Plan: Worsening Leukocytosis without fevers, worsening chest x-ray, blood and urine cultures are negative. White blood cell count elevation could be related to steroids, given her worsening chest x-ray she has been started on antibiotics empirically. Continue her on empiric antibiotics with cefepime for a total of 7 day (initiated on 10/17/2020). Vancomycin has been discontinued yesterday as cultures remained negative. Follow cultures which has been negative so far. -10/17 urine cultures are negative -10/17 blood cultures negative x2 Respiratory secretions culture have been sent on 10/21 which has been negative so far (5) Hypertension: Code(s): I10 - Essential (primary) hypertension Status: Chronic Assessment and Plan: Will hold atenolol, blood pressures are borderline likely due to positive pressure ventilation and propofol (6) Ulcerative colitis: Code(s): K51.90 - Ulcerative colitis, unspecified, without complications Status: Chronic Assessment and Plan: Mesalamine is on hold (7) DVT prophylaxis: Code(s): Z29.9 - Encounter for prophylactic measures, unspecified Status: Acute Assessment and Plan: DVT prophylaxis: Lovenox with therapeutic dose Stress ulcer prophylaxis: Protonix (8) Afib: Code(s): I48.91 - Unspecified atrial fibrillation Status: Acute Assessment and Plan: Likely related to respiratory distress, acute hypoxic respiratory failure and was on on amiodarone infusion -continue Lovenox with a therapeutic dose. No evidence of bleeding from anywhere. She has been transitioned to p.o. amiodarone from IV drip. She has alternating sinus rhythm with atrial fibrillation with good rate control. (9) JEFFERSON (acute kidney injury): Code(s): N17.9 - Acute kidney failure, unspecified Status: Acute Assessment and Plan: Renal parameters are worsening. Will involve Nephrology service for their recommendation. Ultrasound of the kidney ureter bladder will be ordered to rule out any obstructive pathology. Additional Plan Code status: Full code Criti
[2020-10-22 14:34] LABS: Creatinine Urine 112.6 mg/dL; Total Protein Urine Random 67 mg/dL
[2020-10-22 14:53] LABS: Sodium Urine Random 21 meq/L
[2020-10-22 17:14] LABS: Glucose Point of Care 278 (65-105)
--- NOTE | 2020-10-22 17:16 | PM.IMPN ---
Progress Note: A&P Assessment and Plan (1) Acute respiratory distress syndrome (ARDS): Code(s): J80 - Acute respiratory distress syndrome Status: Acute Assessment and Plan: Vent management as per Int/cc Low TV (2) Acute respiratory failure with hypoxia: Code(s): J96.01 - Acute respiratory failure with hypoxia Status: Acute Assessment and Plan: On vent support Flolan therapy (3) JEFFERSON (acute kidney injury): Code(s): N17.9 - Acute kidney failure, unspecified Status: Acute Assessment and Plan: Continue to monitor (4) Afib: Code(s): I48.91 - Unspecified atrial fibrillation Status: Acute Assessment and Plan: On Amiodarone. (5) Infiltrate of lung present on chest x-ray: Code(s): R91.8 - Other nonspecific abnormal finding of lung field Status: Acute Assessment and Plan: On Vanc + Cefepime (6) Acute respiratory failure with hypoxia: Code(s): J96.01 - Acute respiratory failure with hypoxia Status: Acute Assessment and Plan: Continue on ventilator support. (7) Pneumonia due to COVID-19 virus: Code(s): U07.1 - COVID-19; J12.89 - Other viral pneumonia Status: Acute Assessment and Plan: Completed course of Remdesivir Subjective Date/time seen: 10/22/20 17:16 On life support. Review of Systems Review of Systems: Narrative: On life support. Exam Narrative: Exam Narrative: Lying in bed. Exam is limited to inspection. Patient seen thru glass door. Const: General: comfortable Nutritional Appearance: average body habitus HENMT: Head: normal to inspection and normocephalic Throat: other Neck: Neck: supple Resp: Effort & Inspection: other (In sync with vent.) Cardio: Rate: tachycardic (On Telemetry.) and other Neuro: General: other (Sedated) Objective Data Vital Signs Vital Signs: Vital Signs - 24 hr 10/21/20 18:00 10/21/20 20:00 10/21/20 20:10 Temperature 97.6 F Pulse Rate 106 H 112 H 106 H Respiratory Rate 32 H 30 H Blood Pressure 101/68 96/58 L Pulse Oximetry 96 94 94 10/21/20 20:47 10/21/20 22:00 10/21/20 22:21 Temperature Pulse Rate 105 H 112 H 97 Respiratory Rate 32 H 20 34 H Blood Pressure 99/71 L Pulse Oximetry 94 90 10/21/20 23:02 10/22/20 00:00 10/22/20 02:00 Temperature 97.7 F Pulse Rate 120 H 122 H 115 H Respiratory Rate 23 H 21 H Blood Pressure 104/73 107/82 Pulse Oximetry 92 93 93 10/22/20 02:10 10/22/20 04:00 10/22/20 04:46 Temperature 99.0 F Pulse Rate 116 H 122 H 114 H Respiratory Rate 28 H 25 H 35 H Blood Pressure 117/62 Pulse Oximetry 92 90 92 10/22/20 05:00 10/22/20 06:00 10/22/20 08:00 Temperature 98.5 F Pulse Rate 122 H 100 101 H Respiratory Rate 35 H 32 H Blood Pressure 161/91 H 120/76 Pulse Oximetry 92 89 L 89 L 10/22/20 08:05 10/22/20 10:00 10/22/20 11:53 Temperature Pulse Rate 99 95 95 Respiratory Rate 35 H 32 H 32 H Blood Pressure 125/74 Pulse Oximetry 90 90 10/22/20 11:54 10/22/20 11:55 10/22/20 12:00 Temperature 98.5 F Pulse Rate 91 91 91 Respiratory Rate 32 H 32 H 26 H Blood Pressure 123/74 Pulse Oximetry 99 10/22/20 12:10 10/22/20 14:00 10/22/20 14:30 Temperature Pulse Rate 91 90 96 Respiratory Rate 32 H 32 H 32 H Blood Pressure 121/71 Pulse Oximetry 93 95 96 10/22/20 16:00 10/22/20 17:01 10/22/20 17:15 Temperature 98.2 F Pulse Rate 92 91 91 Respiratory Rate 32 H 32 H Blood Pressure 113/71 Pulse Oximetry 94 96 Intake/Output Intake/Output: Intake & Output 10/19/20 10/20/20 10/21/20 10/22/20 23:59 23:59 23:59 23:59 Intake Total 2889 2216.7 1382.3 1002 Output Total 750 1000 475 200 Balance 2139 1216.7 907.3 802 Meds/Results Medications: Active Medications Generic Name Dose Route Start Last Admin Trade Name Freq PRN Reason Stop Dose Admin Acetaminophen 650 mg 10/10/20 04:24 12/14/20 17:09 Acetaminophen 325
[2020-10-22 17:37] LABS: Glucose Point of Care 261 (65-105)
[2020-10-22] MEDS: guaiFENesin 12 HR 600 MG TABCR 1200 MG PO (20:39)
[2020-10-23] VITALS (35 sets, daily range): BP systolic 97–121; BP diastolic 57–75; PULSE 85–99; RESP 21–35; TEMP 36.2–37.1; O2SAT 90–96
[2020-10-23] MEDS: INSULIN ASPART (*BKC) 100 UNITS/ML SUB-Q ×3 (00:19→23:18)
[2020-10-23] MEDS: PROPOFOL IV EMULSION 100 ML 18.59 MG IV CONT ×3 (00:22→12:30)
[2020-10-23] MEDS: EPOPROSTENOL SODIUM 0.5 MG VIAL INHALATION ×4 (02:37→20:56)
[2020-10-23 04:42] LABS: Alveolar/Arterial O2 Gradient 457.3 mmHg; Base Excess ABG -2.9 mEq/l (+/-2.0); Carboxyhemoglobin 0.3 % THb (0-2.0); Fractional Inspired Oxygen 85 %; HCO3 ABG 25.4 mEq/l (22.0-26.0); Methemoglobin ABG 0.2 %THb (0-1.5); Oxygen Content ABG 16.3 %vol (16.0-22.0); Oxygen Saturation ABG 94.6 % (95.0-100.0); Oxyhemoglobin 93.9 % THb (90.0-100.0); PO2 ABG 85.7 mmHg (80.0-100.0); PO2 FiO2 Ratio Arterial Blood 1.01 %; Reduced Hemoglobin 5.6 %THb (0-5.0); Total Hemoglobin 12.3 g/dL (12.0-18.0)
[2020-10-23 04:44] LABS: Device VENTILATOR; Modified Allen's Test Unable to perform; PCO2 ABG 60.8 mmHg (35.0-45.0); Site Drawn LEFT RADIAL; pH ABG 7.238 (7.350-7.450)
[2020-10-23 04:45] LABS: Arterial Blood Gas PEEP 16 cmH2O; Arterial Blood Gas Tidal Volume 320 ml; Arterial Blood Gas Vent Mode CMV; Arterial Blood Gas Ventilator rate 32 /MIN
[2020-10-23 05:22] LABS: Hematocrit 28.5 % (37.0-47.0); Hemoglobin 9.8 g/dL (12.0-15.0); Mean Corpuscular HGB Conc 34.4 g/dl (32-36); Mean Corpuscular Hemoglobin 32.3 pg (26-34); Mean Corpuscular Volume 94.1 fl (80-100); Mean Platelet Volume 10.3 fl (7.4-10.4); Platelet Count Result 348 k/mm3 (150-375); Red Blood Count 3.03 M/mm3 (4.2-5.4); Red Cell Distribution Width 13.2 % (11.5-14.5); White Blood Count 21.5 K/mm3 (4.5-10.0)
[2020-10-23 06:04] LABS: Alanine Aminotransferase 32 U/L (4-35); Albumin Level 2.8 g/dL (3.5-5.1); Alkaline Phosphatase 123 U/L (38-126); Anion Gap 12 mmol/L (8-16); Aspartate Amino Transferase 25 U/L (14-36); Bilirubin,Total 0.2 mg/dL (0.2-1.3); Calcium 7.7 mg/dL (8.4-10.2); Carbon Dioxide 23 mmol/L (22-30); Chloride 88 mmol/L (98-107); Estimated CRCL calculation 15 ml/min; Estimated Glomerular Filt Rate 12; Glucose 178 mg/dL (65-105); Magnesium 3.1 mg/dL (1.6-2.3); Phosphorus 8.4 mg/dL (2.5-4.5); Potassium 4.9 mmol/L (3.4-5.0); Sodium 123 mmol/L (137-145)
[2020-10-23 06:14] LABS: Blood Urea Nitrogen 127 mg/dL (7-17)
[2020-10-23 06:38] LABS: Hepatitis B Surface Antigen Negative (Negative)
[2020-10-23 06:44] LABS: HAV RESULT Negative (Negative); Hepatitis B Core IgM Result Negative (Negative)
[2020-10-23 06:55] LABS: Hepatitis B Surface Anti Res Negative; Hepatitis C Virus Antibody Negative (Negative)
[2020-10-23] MEDS: FENTANYL 2,500MCG/NS250ML(*CRX 2,500 MCG/250 ML BAG IV CONT (07:52)
[2020-10-23 08:05] LABS: Glucose Point of Care 237 (65-105)
[2020-10-23] MEDS: CENTRAL LINE FLUSH 10 ML IV PUSH ×3 (09:40→20:40)
[2020-10-23] MEDS: ASPIRIN 81 MG ENTERIC TABLET PO (09:41)
[2020-10-23] MEDS: ENOXAPARIN 100 MG/ML SYRINGE SUB-Q ×2 (09:41→20:40)
[2020-10-23] MEDS: AMIODARONE HCL 200 MG TABLET 400 MG PO ×2 (09:41→18:26)
[2020-10-23] MEDS: PANTOPRAZOLE SODIUM IV 40 MG VIAL IV PUSH (09:42)
[2020-10-23] MEDS: guaiFENesin 12 HR 600 MG TABCR 1200 MG PO ×2 (09:42→20:42)
[2020-10-23 11:28] LABS: Glucose Point of Care 247 (65-105)
--- NOTE | 2020-10-23 11:42 | PCFNICU ---
ICU Rounding Note: Pt current nutrition is Nepo at 30 ml/hr. Nutrition recommendation:Agree Last recorded weight is 111.2 kg. Bowel Motility:+BM Labs Reviewed:Na 123,BUN 127,Cr 3.7,Alb 2.8 Meds Noted:Propofol 18.59 ml/hr, Fentanyl, Lovenox, Mucinex, Protonix. Additional Notes: Patient remains on mechanical vent. Tube feedings of Nepro at 30 ml/hr and tolerating. Patient proned on friday for 12 hours. Albumin added today. Following daily in ICU rounds. Assessing/reassessing every Friday and Friday.
--- NOTE | 2020-10-23 11:52 | WPDINTPN ---
Progress Note: A&P Assessment and Plan (1) Acute respiratory failure with hypoxia: Code(s): J96.01 - Acute respiratory failure with hypoxia Status: Acute Assessment and Plan: Acute hypoxic respiratory failure likely related to COVID-19 pneumonia -on 10/18 patient desaturated on high-flow therapy, 60 L flow rate and 94% FiO2 with 100% non-rebreather mask.. She was intubated on 10/18/2020 -chest x-ray shows worsening on diffuse lung disease at bases -ARDS physiology, low tidal volume strategy. ABG reviewed. Will wean PEEP to 14, continue to wean FiO2 to maintain O2 sats greater than 92%. -[place] [address] units, patient remained stable with oxygenation. Maintain O2 sats greater than 92%. -patient is sedated with fentanyl and propofol. Continue to keep a RASS of -1. She is not a candidate for daily sedation vacation trial at this time. -Nimbex since 10/21 Prone positioning if tolerated should improve her oxygenation. (2) Pneumonia due to COVID-19 virus: Code(s): U07.1 - COVID-19; J12.89 - Other viral pneumonia Status: Acute Assessment and Plan: COVID-19 pneumonia - patient has received a 5 day course of Remdesivir which was completed on 10/11/2020. - on dexamethasone which was initiated on 10/13/2020 -received convalescent plasma on 10/14/2020 -continue contact, droplet, airborne isolation/precautions (3) COPD (chronic obstructive pulmonary disease): Code(s): J44.9 - Chronic obstructive pulmonary disease, unspecified Status: Chronic Assessment and Plan: Continue bronchodilators (4) Leukocytosis: Code(s): D72.829 - Elevated white blood cell count, unspecified Status: Acute Assessment and Plan: Worsening Leukocytosis without fevers, worsening chest x-ray, blood and urine cultures are negative. White blood cell count elevation could be related to steroids, given her worsening chest x-ray she has been started on antibiotics empirically. Continue her on empiric antibiotics with cefepime for a total of 7 day (initiated on 10/17/2020). Vancomycin has been discontinued yesterday as cultures remained negative. Follow cultures which has been negative so far. -10/17 urine cultures are negative -10/17 blood cultures negative x2 Respiratory secretions culture have been sent on 10/21 which has been negative so far (5) Hypertension: Code(s): I10 - Essential (primary) hypertension Status: Chronic Assessment and Plan: Will hold atenolol, blood pressures are borderline likely due to positive pressure ventilation and propofol (6) Ulcerative colitis: Code(s): K51.90 - Ulcerative colitis, unspecified, without complications Status: Chronic Assessment and Plan: Mesalamine is on hold (7) DVT prophylaxis: Code(s): Z29.9 - Encounter for prophylactic measures, unspecified Status: Acute Assessment and Plan: DVT prophylaxis: Lovenox with therapeutic dose Stress ulcer prophylaxis: Protonix (8) Afib: Code(s): I48.91 - Unspecified atrial fibrillation Status: Acute Assessment and Plan: Likely related to respiratory distress, acute hypoxic respiratory failure and was on on amiodarone infusion -continue Lovenox with a therapeutic dose. No evidence of bleeding from anywhere. She has been transitioned to p.o. amiodarone from IV drip. She has alternating sinus rhythm with atrial fibrillation with good rate control. (9) JEFFERSON (acute kidney injury): Code(s): N17.9 - Acute kidney failure, unspecified Status: Acute Assessment and Plan: Renal parameters are worsening along with oligouria -appreciate Nephrology evaluation recommendation -renal ultrasound shows normal kidney size, no hydronephrosis, diffuse hepatic steatosis Additional Plan Updated family Code status: Full code Critical care time spent: 34 minutes Due to a high probability of clinically significant, life thre
[2020-10-23] MEDS: ALBUMIN HUMAN 25% 12.5 GM/50ML 50 ML IVPB ×3 (12:37→23:16)
--- NOTE | 2020-10-23 16:53 | PM.IMPN ---
Progress Note: A&P Assessment and Plan (1) Acute respiratory distress syndrome (ARDS): Code(s): J80 - Acute respiratory distress syndrome Status: Acute Assessment and Plan: On ventilator support. Management as per Int/Cc Flolan therapy (2) JEFFERSON (acute kidney injury): Code(s): N17.9 - Acute kidney failure, unspecified Status: Acute Assessment and Plan: Continue to monitor Strict I/O's daily Worsening Appreciate Nephrology note Heading to INTERNAL AFFAIRS INVESTIGATOR/HD? (3) Afib: Code(s): I48.91 - Unspecified atrial fibrillation Status: Acute Assessment and Plan: Remains tachycardic On Amiodarone (4) Acute respiratory failure with hypoxia: Code(s): J96.01 - Acute respiratory failure with hypoxia Status: Acute (5) Pneumonia due to COVID-19 virus: Code(s): U07.1 - COVID-19; J12.89 - Other viral pneumonia Status: Acute Assessment and Plan: Completed Remdesivir/Dexamethasone (6) Acute respiratory failure with hypoxia: Code(s): J96.01 - Acute respiratory failure with hypoxia Status: Acute Assessment and Plan: On ventilator Continue supportive care. Subjective Date/time seen: 10/23/20 16:53 On life support. Review of Systems Review of Systems: Narrative: Unable to obtain as patient is on life support. Exam Narrative: Exam Narrative: Exam is limited to inspection Const: General: comfortable, no acute distress and other (on life support.) Nutritional Appearance: average body habitus HENMT: Head: normocephalic Cardio: Rate: tachycardic (Telemetry) Neuro: General: other (Under sedation.) Objective Data Vital Signs Vital Signs: Vital Signs - 24 hr 10/22/20 17:01 10/22/20 17:15 10/22/20 18:00 Temperature Pulse Rate 91 91 92 Respiratory Rate 32 H 32 H Blood Pressure 103/71 Pulse Oximetry 96 92 10/22/20 19:51 10/22/20 19:53 10/22/20 20:00 Temperature 98.1 F Pulse Rate 91 91 93 Respiratory Rate 33 H 30 H Blood Pressure 107/66 Pulse Oximetry 94 94 94 10/22/20 22:00 10/22/20 22:30 10/23/20 00:00 Temperature 98.1 F Pulse Rate 90 91 89 Respiratory Rate 32 H 27 H Blood Pressure 107/66 121/75 Pulse Oximetry 95 93 92 10/23/20 02:00 10/23/20 02:37 10/23/20 04:00 Temperature 98.1 F Pulse Rate 93 93 95 Respiratory Rate 27 H 32 H 29 H Blood Pressure 107/65 111/74 Pulse Oximetry 90 93 95 10/23/20 04:23 10/23/20 05:45 10/23/20 05:52 Temperature Pulse Rate 95 95 96 Respiratory Rate 29 H Blood Pressure Pulse Oximetry 95 95 10/23/20 06:00 10/23/20 07:51 10/23/20 07:52 Temperature Pulse Rate 96 95 94 Respiratory Rate 26 H 29 H 30 H Blood Pressure 104/62 Pulse Oximetry 93 10/23/20 08:00 10/23/20 09:00 10/23/20 09:41 Temperature 97.2 F L Pulse Rate 95 94 94 Respiratory Rate 33 H 33 H Blood Pressure 97/64 L Pulse Oximetry 94 95 10/23/20 10:00 10/23/20 11:00 10/23/20 12:00 Temperature 98.7 F Pulse Rate 93 93 90 Respiratory Rate 28 H 35 H 28 H Blood Pressure 98/60 L 98/57 L Pulse Oximetry 91 94 91 10/23/20 12:30 10/23/20 13:03 10/23/20 14:00 Temperature Pulse Rate 99 90 89 Respiratory Rate 25 H 34 H 28 H Blood Pressure 107/63 Pulse Oximetry 95 92 10/23/20 14:12 10/23/20 15:09 Temperature Pulse Rate 89 91 Respiratory Rate 28 H 34 H Blood Pressure Pulse Oximetry 94 Intake/Output Intake/Output: Intake & Output 10/20/20 10/21/20 10/22/20 10/23/20 23:59 23:59 23:59 23:59 Intake Total 2216.7 1382.3 1537 1012 Output Total 1000 475 400 175 Balance 1216.7 907.3 1137 837 Meds/Results Medications: Active Medications Generic Name Dose Route Start Last Admin Trade Name Freq PRN Reason Stop Dose Admin Acetaminophen 650 mg 10/10/20 04:24 10/16/20 17:09 Acetaminophen 325 Mg Tablet PO 650 mg Q4H PRN Administration Mild Pain (1-3) or Fever Amiodarone HCl 400 mg 10/21/20 17:00 10/23/20 09:41
[2020-10-23] MEDS: PROPOFOL IV EMULSION 100 ML 15.5 MG IV CONT ×2 (18:15→23:49)
[2020-10-23] MEDS: FUROSEMIDE INJ 40 MG/4 ML VIAL 20 MG IV PUSH (18:19)
--- NOTE | 2020-10-23 18:26 | PM.PNNEP ---
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 COMMUNICATIONS ENGINEER/dialysis (2) Acute respiratory failure with hypoxia: Code(s): J96.01 - Acute respiratory failure with hypoxia Status: Acute Assessment and Plan: due to COVID-19 see #3 (3) Pneumonia due to COVID-19 virus: Code(s): U07.1 - COVID-19; J12.89 - Other viral pneumonia Status: Acute Assessment and Plan: s/p 5 day course of Remdesivir on dexamethasone s/p convalescent plasma (on 10/14/2020) remains on contact, droplet, airborne isolation/precautions (4) Afib: Code(s): I48.91 - Unspecified atrial fibrillation Status: Acute Assessment and Plan: presumably due to acute illness and respiratory failure on amiodarone continue rate control strategy (5) Ulcerative colitis: Code(s): K51.90 - Ulcerative colitis, unspecified, without complications Status: Chronic Assessment and Plan: mesalamine on hold (6) Hypertension: Code(s): I10 - Essential (primary) hypertension Status: Chronic Assessment and Plan: BP on soft side (likely secondary to ventilator support) hold BP medications with parameters Will continue to follow. Subjective Date/time seen: 10/23/20 18:26 Remains on full ventilator support with worsening kidney function as well as declining urine output; worsening swelling/edema noted as well; no acute events overnight or earlier this AM. Exam Narrative: Exam Narrative: General: WD/WN female intubated/sedated Heart: normal S1 and S2; no rub Lungs: coarse throughout with rales/rhonchi noted Abdomen: soft, nontender, nondistended, positive bowel sounds Extremities: no cyanosis or clubbing; 1+ edema Skin: warm and dry Objective Data Vital Signs Vital Signs: Vital Signs Temp Pulse Resp BP Pulse Ox 10/23/20 18:15 88 21 H 10/23/20 17:03 89 34 H 91 10/23/20 15:09 91 34 H 94 10/23/20 14:12 89 28 H 10/23/20 14:00 89 28 H 107/63 92 10/23/20 13:03 90 34 H 95 10/23/20 12:30 99 25 H 10/23/20 12:00 37.1 C 90 28 H 98/57 L 91 10/23/20 11:00 93 35 H 94 10/23/20 10:00 93 28 H 98/60 L 91 10/23/20 09:41 94 10/23/20 09:00 94 33 H 95 10/23/20 08:00 36.2 C L 95 33 H 97/64 L 94 10/23/20 07:52 94 30 H 10/23/20 07:51 95 29 H 10/23/20 06:00 96 26 H 104/62 93 10/23/20 05:52 96 95 10/23/20 05:45 95 29 H 10/23/20 04:23 95 95 10/23/20 04:00 36.7 C 95 29 H 111/74 95 10/23/20 02:37 93 32 H 93 10/23/20 02:00 93 27 H 107/65 90 10/23/20 00:00 36.7 C 89 27 H 121/75 92 10/22/20 22:30 91 93 10/22/20 22:00 90 32 H 107/66 95 10/22/20 20:00 36.7 C 93 30 H 107/66 94 10/22/20 19:53 91 33 H 94 10/22/20 19:51 91 94 Intake/Output Intake/Output: Intake & Output 10/20/20 10/21/20 10/22/20 10/23/20 23:59 23:59 23:59 23:59 Intake Total 2216.7 1382.3 1537 1112 Output Total 1000 475 400 175 Balance 1216.7 907.3 1137 937 Meds/Results Medications: Active Medications Generic Name Dose Route Start Last Admin Trade Name Freq PRN Reason Stop Dose Admin Acetaminophen 650 mg 10/10/20 04:24 10/16/20 17:09 Acetaminophen 325 Mg Tablet PO 650 mg Q4H PRN Administration Mild Pain (1-3) or Fever Amiodarone HCl 400 mg 10/21/20 17:00 10/23/20 09:41 Amiodarone Hcl 200 Mg Tablet PO 400 mg BID SHARI Administration Aspirin 81 mg 10/08/20 09:00 10/23/20 09:41 Aspirin 81 Mg Enteric Tablet PO 81 mg DAILY SHARI Administration Dextrose 12.5 gm 10/19/20 10:15
[2020-10-23 18:35] LABS: Glucose Point of Care 198 (65-105)
[2020-10-23 23:29] LABS: Glucose Point of Care 208 (65-105)
[2020-10-24] VITALS (55 sets, daily range): BP systolic 65–121; BP diastolic 34–91; PULSE 70–127; RESP 22–34; TEMP 35.7–37.1; O2SAT 86–97
[2020-10-24] MEDS: EPOPROSTENOL SODIUM 0.5 MG VIAL INHALATION ×3 (00:56→10:55)
[2020-10-24 04:40] LABS: Alveolar/Arterial O2 Gradient 471.2 mmHg; Base Excess ABG -5.3 mEq/l (+/-2.0); Carboxyhemoglobin 0.3 % THb (0-2.0); Fractional Inspired Oxygen 85 %; HCO3 ABG 22.5 mEq/l (22.0-26.0); Methemoglobin ABG 0.3 %THb (0-1.5); Oxygen Content ABG 10.9 %vol (16.0-22.0); Oxygen Saturation ABG 92.2 % (95.0-100.0); Oxyhemoglobin 90.9 % THb (90.0-100.0); PCO2 ABG 56.7 mmHg (35.0-45.0); PO2 FiO2 Ratio Arterial Blood 0.89 %; Reduced Hemoglobin 8.5 %THb (0-5.0); Total Hemoglobin 8.4 g/dL (12.0-18.0)
[2020-10-24 04:42] LABS: Arterial Blood Gas PEEP 14 cmH2O; Arterial Blood Gas Tidal Volume 320 ml; Arterial Blood Gas Vent Mode CMV; Arterial Blood Gas Ventilator rate 32 /MIN; Device VENTILATOR; Modified Allen's Test Unable to perform; Site Drawn LEFT RADIAL; pH ABG 7.216 (7.350-7.450)
[2020-10-24 05:11] LABS: Hematocrit 23.9 % (37.0-47.0); Hemoglobin 7.9 g/dL (12.0-15.0); Mean Corpuscular HGB Conc 33.1 g/dl (32-36); Mean Corpuscular Hemoglobin 31.1 pg (26-34); Mean Corpuscular Volume 94.1 fl (80-100); Mean Platelet Volume 10.3 fl (7.4-10.4); Platelet Count Result 263 k/mm3 (150-375); Red Blood Count 2.54 M/mm3 (4.2-5.4); Red Cell Distribution Width 13.5 % (11.5-14.5); White Blood Count 17.4 K/mm3 (4.5-10.0)
[2020-10-24] MEDS: ALBUMIN HUMAN 25% 12.5 GM/50ML 50 ML IVPB ×2 (05:15→16:37)
[2020-10-24] MEDS: CENTRAL LINE FLUSH 10 ML IV PUSH ×3 (05:15→19:38)
[2020-10-24 05:43] LABS: Alanine Aminotransferase 26 U/L (4-35); Albumin Level 3.1 g/dL (3.5-5.1); Alkaline Phosphatase 114 U/L (38-126); Anion Gap 14 mmol/L (8-16); Aspartate Amino Transferase 22 U/L (14-36); Bilirubin,Total 0.5 mg/dL (0.2-1.3); Calcium 8.4 mg/dL (8.4-10.2); Carbon Dioxide 25 mmol/L (22-30); Chloride 89 mmol/L (98-107); Estimated CRCL calculation 10 ml/min; Estimated Glomerular Filt Rate 8; Glucose 201 mg/dL (65-105); Magnesium 3.4 mg/dL (1.6-2.3); Phosphorus 9.5 mg/dL (2.5-4.5); Potassium 5.2 mmol/L (3.4-5.0); Sodium 128 mmol/L (137-145)
[2020-10-24 05:46] LABS: Blood Urea Nitrogen 145 mg/dL (7-17)
[2020-10-24] MEDS: PROPOFOL IV EMULSION 100 ML 15.5 MG IV CONT (05:59)
[2020-10-24 06:04] LABS: Glucose Point of Care 196 (65-105)
[2020-10-24] MEDS: PANTOPRAZOLE SODIUM IV 40 MG VIAL IV PUSH (08:17)
[2020-10-24] MEDS: AMIODARONE HCL 200 MG TABLET 400 MG PO ×2 (08:17→17:47)
[2020-10-24] MEDS: ASPIRIN 81 MG ENTERIC TABLET PO (08:17)
[2020-10-24] MEDS: ENOXAPARIN 100 MG/ML SYRINGE SUB-Q (08:17)
[2020-10-24] MEDS: guaiFENesin 12 HR 600 MG TABCR 1200 MG PO (08:17)
--- NOTE | 2020-10-24 11:19 | PCDIET ---
Nutrition Follow-Up Complete: Predicted suboptimal oral intake related to respiratory failure as evidenced by possible need for intubation. Patient to meet estimated nutritional needs. Goal: Goal met. Continue goal Pt current nutrition is Nepro 30ml/hr Nutrition recommendation: agree Last recorded weight is 109.6 kg, was 112.2kg yesterday (+452.7 I/O) Bowel Motility: BM+ yesterday Labs Reviewed:Glucose 201, Cr 5.30, BUN 145, GFR 8, K 5.2, Phosphorus 9.5, Mg 3.4, Na 128, Albumin 3.1, Protein 6.0, Hgb 7.9, Hct 23.1 Meds Noted: Insulin, Fentanyl, Propofol Additional Notes: Pt is tolerating Nepro at 30ml/hr providing 1188kcals and 53g protein. Propofol at 12.4ml/hr providing an additional 273kcals, meeting 86% of kcal needs. Recommend as propofol comes down, increasing to 40ml/hr over 22hrs to provide 1584kcals, 71g protein, meeting 100% of needs. Pt getting dialysis cath. Edema noted in arms and legs per RN. We will continue to follow daily in ICU and reassess every T/Sat. .
--- NOTE | 2020-10-24 11:27 | PM.IMPN ---
Progress Note: A&P Assessment and Plan (1) Acute respiratory distress syndrome (ARDS): Code(s): J80 - Acute respiratory distress syndrome Status: Acute Assessment and Plan: On ventilator support. Management as per Int/Cc Flolan therapy (2) JEFFERSON (acute kidney injury): Code(s): N17.9 - Acute kidney failure, unspecified Status: Acute Assessment and Plan: Continue to monitor Strict I/O's daily Worsening Appreciate Nephrology note Heading to HOTEL MAID/HD? (3) Afib: Code(s): I48.91 - Unspecified atrial fibrillation Status: Acute Assessment and Plan: Remains tachycardic On Amiodarone (4) Acute respiratory failure with hypoxia: Code(s): J96.01 - Acute respiratory failure with hypoxia Status: Acute (5) Pneumonia due to COVID-19 virus: Code(s): U07.1 - COVID-19; J12.89 - Other viral pneumonia Status: Acute Assessment and Plan: Completed Remdesivir/Dexamethasone Subjective Date/time seen: 10/24/20 11:27 Interval history: Patient was seen during the morning rounds today. Intubated and sedated, no new complaints. Review of Systems Review of Systems: All systems reviewed & are unremarkable except as noted in HPI and below Constitutional: Constitutional: Reports as per HPI and Reports no additional constitutional complaints Eyes: Eyes: Reports as per HPI and Reports no additional eye complaints ENT: Reports system reviewed and no additional complaints, except as documented and Reports Normal hearing present Cardiovascular: Cardiovascular: Reports no additional cardiovascular complaints Respiratory: Respiratory: Reports no additional respiratory complaints and Reports no additional respiratory complaints Gastrointestinal: Gastrointestinal: Reports as per HPI and Reports no additional gastrointestinal complaints Musculoskeletal: Musculoskeletal: Reports no additional musculoskeletal complaints Integumentary/Breasts: Skin/Breast: Reports system reviewed and no additional complaints, except as docu and Reports as per HPI Neurologic: Reports system reviewed and no additional complaints, except as documented, Reports as per HPI and Reports Normal hearing present Psychiatric: Psychiatric: Reports no additional psychiatric complaints and Reports as per HPI Endocrine: Endocrine: Reports no additional endocrine complaints Hematologic/Lymphatic: Hematologic/Lymphatic: Reports no additional hematologic/lymphatic complaints Allergic/Immunologic: Allergic/Immunologic: Reports no additional allergic/immunologic complaints Exam Narrative: Exam Narrative: Exam is limited to inspection Const: General: cooperative, healthy appearing, comfortable, no acute distress, well developed, alert, awake, Physically active, ill appearing and other (on life support.) Nutritional Appearance: average body habitus, well nourished and overweight Orientation/consciousness: oriented to person, oriented to place, oriented to time and patient oriented x3 Limitations: no limitations HENMT: Head: normal to inspection, No palpable skull fracture present, normocephalic and atraumatic Ears: hearing grossly normal bilaterally and external ears normal General nose exam: Normal external nose present, Normal nares present and No nasal polyps present Face and sinus: normal facial exam Mouth: Yes other (ETT in place) Throat: other Other: ETT in place. Eyes: General: appearance normal, both eyes and all related structures Alignment and Position: alignment normal Periorbital: periorbital findings normal Eyelids: eyelids normal Conjunctivae: conjunctivae normal Sclera: sclerae normal Cornea: corneas normal Pupils: Equal, round and reactive pupils present and Pupil accommodation reflex normal EOM: EOMs intact bilaterally Neck: Neck: normal visual inspection, full ROM, no lymphadenopathy, trachea midline, supple and no JVD Thyroid: thyroid normal Carotids: normal carotid upstroke
[2020-10-24] MEDS: ROCURONIUM BROMIDE 50 MG/5 ML VIAL IV PUSH (11:30)
[2020-10-24 12:14] LABS: Glucose Point of Care 122 (65-105)
--- NOTE | 2020-10-24 12:17 | PM.PNNEP ---
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 LEATHER POLISHER/dialysis today follow trend of labs and UOP for recovery (2) Acute respiratory failure with hypoxia: Code(s): J96.01 - Acute respiratory failure with hypoxia Status: Acute Assessment and Plan: due to COVID-19 (3) Pneumonia due to COVID-19 virus: Code(s): U07.1 - COVID-19; J12.89 - Other viral pneumonia Status: Acute Assessment and Plan: s/p 5 day course of Remdesivir on dexamethasone s/p convalescent plasma (on 10/14/2020) remains on contact, droplet, airborne isolation/precautions (4) Afib: Code(s): I48.91 - Unspecified atrial fibrillation Status: Acute Assessment and Plan: presumably due to acute illness and respiratory failure on amiodarone continue rate control strategy (5) Ulcerative colitis: Code(s): K51.90 - Ulcerative colitis, unspecified, without complications Status: Chronic Assessment and Plan: mesalamine on hold (6) Hypertension: Code(s): I10 - Essential (primary) hypertension Status: Chronic Assessment and Plan: BP on soft side (likely secondary to ventilator support) hold BP medications with parameters Will continue to follow. Subjective Date/time seen: 10/24/20 12:17 Renal function continues to deteriorate with worsening/declining urine output; remains on full ventilator support at this time; no real change noted otherwise. Exam Narrative: Exam Narrative: General: WD/WN female intubated/sedated Heart: normal S1 and S2; no rub Lungs: coarse throughout with rales/rhonchi noted Abdomen: soft, nontender, nondistended, positive bowel sounds Extremities: no cyanosis or clubbing; 1+ edema Skin: warm and dry Objective Data Vital Signs Vital Signs: Vital Signs Temp Pulse Resp BP Pulse Ox 10/24/20 12:00 35.8 C L 83 32 H 104/64 93 10/24/20 10:55 85 32 H 93 10/24/20 10:25 84 34 H 10/24/20 10:24 84 34 H 10/24/20 10:00 84 34 H 113/60 90 10/24/20 08:55 86 33 H 94 10/24/20 08:18 83 32 H 10/24/20 08:17 84 10/24/20 08:00 35.7 C L 83 32 H 112/61 93 10/24/20 07:00 87 32 H 92 10/24/20 06:00 84 30 H 121/63 89 L 10/24/20 05:59 84 28 H 10/24/20 05:20 87 34 H 92 10/24/20 05:17 87 92 10/24/20 05:16 84 28 H 10/24/20 04:00 36.8 C 84 32 H 104/57 L 90 Intake/Output Intake/Output: Intake & Output 10/22/20 10/23/20 10/24/20 10/25/20 23:59 23:59 23:59 23:59 Intake Total 1537 1768.9 1208.6 Output Total 400 325 766 Balance 1137 1443.9 442.6 Meds/Results Medications: Active Medications Generic Name Dose Route Start Last Admin Trade Name Freq PRN Reason Stop Dose Admin Acetaminophen 650 mg 10/10/20 04:24 10/16/20 17:09 Acetaminophen 325 Mg Tablet PO 650 mg Q4H PRN Administration Mild Pain (1-3) or Fever Amiodarone HCl 400 mg 10/21/20 17:00 10/24/20 17:47 Amiodarone Hcl 200 Mg Tablet PO 400 mg BID SHARI Administration Aspirin 81 mg 10/08/20 09:00 10/24/20 08:17 Aspirin 81 Mg Enteric Tablet PO 81 mg DAILY SHARI Administration Dextrose 12.5 gm 10/19/20 10:15 Dextrose 50% 25 Gm/50 Ml Syringe IV PUSH PRN PRN Hypoglycemia Protocol Enoxaparin Sodium 100 mg 10/20/20 21:00 10/24/20 19:49 Enoxaparin 100 Mg/Ml Syringe SUB-Q Not Given Q12HR SHARI Epoprostenol Sodium 0.5 mg 10/19/20 07:55 10/24/20 10:55 Epoprostenol Sodium 0.5 Mg Vial INHALATION 0.5 mg PRN PRN Administration Titrate Epoprostenol Sodium 1 mg 10/24/20 14:21 10/24/20 14:52 Epoprostenol Sodium 0.5 Mg Vial INHALATION 1 mg PRN PRN Adminis
--- NOTE | 2020-10-24 12:40 | WPDINTPN ---
Progress Note: A&P Assessment and Plan (1) Acute respiratory failure with hypoxia: Code(s): J96.01 - Acute respiratory failure with hypoxia Status: Acute Assessment and Plan: Acute hypoxic respiratory failure likely related to COVID-19 pneumonia -on 10/18 patient desaturated on high-flow therapy, 60 L flow rate and 94% FiO2 with 100% non-rebreather mask. She was intubated on 10/18/2020 -chest x-ray shows worsening on diffuse lung disease at bases -ARDS physiology, low tidal volume strategy. ABG reviewed. Wean PEEP to 12, continue to wean FiO2 to maintain O2 sats greater than 92%. [place] [address] units, patient remained stable with oxygenation. Maintain O2 sats greater than 92%. -patient is sedated with fentanyl and propofol. Continue to keep a RASS of -1. She is not a candidate for daily sedation vacation trial at this time. -Nimbex since 10/21 -Prone positioning if tolerated should improve her oxygenation. (2) Pneumonia due to COVID-19 virus: Code(s): U07.1 - COVID-19; J12.89 - Other viral pneumonia Status: Acute Assessment and Plan: COVID-19 pneumonia - patient has received a 5 day course of Remdesivir which was completed on 10/11/2020. - S/p Dexamethasone for 10 days -received convalescent plasma on 10/14/2020 -continue contact, droplet, airborne isolation/precautions (3) COPD (chronic obstructive pulmonary disease): Code(s): J44.9 - Chronic obstructive pulmonary disease, unspecified Status: Chronic Assessment and Plan: Continue bronchodilators (4) Leukocytosis: Code(s): D72.829 - Elevated white blood cell count, unspecified Status: Acute Assessment and Plan: Leukocytosis without fevers, worsening chest x-ray, blood and urine cultures are negative. White blood cell count elevation could be related to steroids, given her worsening chest x-ray she has been started on antibiotics empirically. Continue her on empiric antibiotics with cefepime for a total of 7 day (initiated on 10/17/2020). Vancomycin has been discontinued yesterday as cultures remained negative. Follow cultures which has been negative so far. -10/17 urine cultures are negative -10/17 blood cultures negative x2 Respiratory secretions culture have been sent on 10/21 which has been negative so far (5) Hypertension: Code(s): I10 - Essential (primary) hypertension Status: Chronic Assessment and Plan: Will hold atenolol, blood pressures are borderline likely due to positive pressure ventilation and propofol (6) Ulcerative colitis: Code(s): K51.90 - Ulcerative colitis, unspecified, without complications Status: Chronic Assessment and Plan: Mesalamine is on hold (7) Afib: Code(s): I48.91 - Unspecified atrial fibrillation Status: Acute Assessment and Plan: Likely related to respiratory distress, acute hypoxic respiratory failure and was on on amiodarone infusion -continue Lovenox with a therapeutic dose. No evidence of bleeding from anywhere. -She has been transitioned to p.o. amiodarone from IV drip. She has alternating sinus rhythm with atrial fibrillation with good rate control. (8) JEFFERSON (acute kidney injury): Code(s): N17.9 - Acute kidney failure, unspecified Status: Acute Assessment and Plan: Renal parameters are worsening along with oligouria -appreciate Nephrology evaluation recommendation -renal ultrasound shows normal kidney size, no hydronephrosis, diffuse hepatic steatosis (9) DVT prophylaxis: Code(s): Z29.9 - Encounter for prophylactic measures, unspecified Status: Acute Assessment and Plan: DVT prophylaxis: Lovenox with therapeutic dose Stress ulcer prophylaxis: Protonix Additional Plan D/w Georgette, the daughter and updated her with pt's condition and plan of care. consented to dialysis catheter. Discussed code status and daughter stated that she wants her to be a full c
[2020-10-24] MEDS: PROPOFOL IV EMULSION 100 ML 12.4 MG IV CONT (14:08)
[2020-10-24] MEDS: EPOPROSTENOL SODIUM 0.5 MG VIAL 1 MG INHALATION (14:52)
[2020-10-24] MEDS: EPOETIN ALFA-EPBX 10,000 UNITS/ML VIAL 10000 UNITS IV PUSH (16:53)
[2020-10-24 17:46] LABS: Glucose Point of Care 122 (65-105)
[2020-10-24] MEDS: ALBUMIN HUMAN 25% 25 GM/100 ML 100 ML IVPB (19:49)
[2020-10-24 20:01] LABS: Mean Platelet Volume 10.2 fl (7.4-10.4); Platelet Count Result 225 k/mm3 (150-375)
[2020-10-24 20:03] LABS: Hematocrit 21.6 % (37.0-47.0); Hemoglobin 7.2 g/dL (12.0-15.0)
[2020-10-24 20:12] LABS: Magnesium 2.4 mg/dL (1.6-2.3)
[2020-10-24 20:15] LABS: INR 1.4
[2020-10-24 20:16] LABS: Partial Thromboplastin Time 47.5 SECONDS (22.3-36.8)
[2020-10-24 20:18] LABS: D Dimer 2.55 ug/mL (<0.48)
[2020-10-24 20:30] LABS: Fibrinogen 511 mg/dl (215-510)
[2020-10-24] MEDS: NOREPINEPHRINE 8 MG/D5W 250 ML 8 MG/250 ML BAG 56.25 MG IV CONT (21:00)
--- NOTE | 2020-10-24 21:06 | ECG_ITS ---
Measurements Intervals [place] Rate: 115 P: 39 WI: 220 QRS: 50 QRSD: 98 T: 34 QT: 296 QTc: 410 Interpretive Statements SINUS TACHYCARDIA WITH FIRST DEGREE AV BLOCK MINIMAL Q WAVES- INFERIOR LEADS BORDERLINE T WAVE ABNORMALITY- ANTERIOR LEADS ABNORMAL ECG Electronically Signed On 10-25-2020 15:19:56 BUSINESS INTEGRATION MANAGER by Amish Rodrigues D.O.
--- NOTE | 2020-10-24 21:21 | P.CODEBLUE_ITS ---
Code Blue Note Code Blue Note Time Arrived at Code Blue: 2054 Initial Rhythm on Arrival: pea Airway Management: Pt being bagged on arrival (Already intubated) Chest Compressions: In process on arrival to bedside Result of Code Blue: Pt transferred to ICU (Patient already in ICU.) Cardiac Rhythm Post Code: Sinus rhythm with some ST depression. Code Blue Summary: Patient's heart rate was dropping down in the 30s the nurse moved to the crash cart and call the code CPR was not initiated immediately. Chest compressions were started patient was given 1 dose of epinephrine followed with sodium bicarb. Approximately 2-3 minutes of chest compressions alternating with bagging the airway. The patient has already been intubated. She was on the vent prior to this. An EKG was pbtained and a chest x-ray as well as labs. I did notify her daughter Deanne keller as well as a son-in-law all julio heredia ruben. ICU refrigeration supervisor was notified of patient's code blue status and she did consent to 2 people coming up to the last store in ICU for 15 minutes to visit with the patient. I did explain to the daughter and son-in-law that the patient was in very poor condition and may not make it through the night. The daughter and son-in-law agreed to come and see the patient. The patient's oxygen levels only 83% blood pressure is 87/55. Heart rate is 104 post code. Awaiting labs. Levophed drip has been started as well. May consider hanging epinephrine or vasopressin as well.
[2020-10-24 21:43] LABS: Alanine Aminotransferase 36 U/L (4-35); Albumin Level 3.9 g/dL (3.5-5.1); Alkaline Phosphatase 99 U/L (38-126); Anion Gap 14 mmol/L (8-16); Aspartate Amino Transferase 56 U/L (14-36); Bilirubin,Total 0.4 mg/dL (0.2-1.3); Blood Urea Nitrogen 60 mg/dL (7-17); Calcium 7.6 mg/dL (8.4-10.2); Carbon Dioxide 30 mmol/L (22-30); Chloride 90 mmol/L (98-107); Estimated CRCL calculation 17 ml/min; Estimated Glomerular Filt Rate 14; Glucose 220 mg/dL (65-105); Potassium 4.9 mmol/L (3.4-5.0); Sodium 134 mmol/L (137-145)
[2020-10-24] MEDS: VASOPRESSIN INJ 100 UNITS in DEXTROSE 5% 95 ML IV CONT (21:49)
[2020-10-24 21:51] LABS: Troponin I 0.024 ng/mL (0.000-0.034)
--- NOTE | 2020-10-24 22:01 | PC.NURSE ---
This nurse was present at patient's bedside to initiate a norepinephrine drip for hypotension when the patient was noted to have converted from a-fib to asystole on the cardiac rehab nurse. CPR initiated immediately, one round of epinephrine administered. ROSC obtained within 4 minutes. See code sheet for details. Family notified of code and ROSC. Georgette(daughter) elected to not preform further life saving measures if the patient were to lose a pulse again. The patient became pulseless and at 2201.
[2020-10-25 17:33] LABS: Chloride Rand Ur <20 mmol/L (32-290); Creatinine Random Urine 101 mg/dL (20-275)
--- NOTE | 2020-11-11 20:11 | PM.DDS ---
Discharge Sum: Prov Provider Primary care physician: Adolph Bacon, Admitting provider: Audelia Anderson MD Attending physician on admission: Audelia Anderson Consults: 10/16/20 Consult to Physician Routine Comment: Consulting Provider: Layo Encarnacion Reason for consultation: respiratory failure/COVID + Has provider been notified: Yes 10/22/20 Consult to Physician Routine Comment: EXCHANGE NOTIFIED OF CONSULT Consulting Provider: Alirio Haddad environmental compliance technician/MD group to consult: Nephrology Reason for consultation: JEFFERSON Has provider been notified: Yes Pronouncing clinician: Jackie Lovett Discharge Sum: Diag PCOD Chest compressions were started patient was given 1 dose of epinephrine followed with sodium bicarb. Approximately 2-3 minutes of chest compressions alternating with bagging the airway. The patient has already been intubated. She was on the vent prior to this. An EKG was obtained and a chest x-ray as well as labs. I did notify her daughter Deanne Chen as well as a son-in-law . ICU lathing supervisor was notified of patient's code blue status and she did consent to 2 people coming up to the last store in ICU for 15 minutes to visit with the patient. I did explain to the daughter and son-in-law that the patient was in very poor condition and may not make it through the night. The daughter and son-in-law agreed to come and see the patient. The patient's oxygen levels only 83% blood pressure is 87/55. Heart rate is 104 post code. Awaiting labs. Levophed drip was started as well. Contributing Factors (1) Acute respiratory distress syndrome (ARDS): (2) Pneumonia due to COVID-19 virus: (3) Acute respiratory failure with hypoxia: (4) Acute respiratory failure with hypoxia: (5) COPD (chronic obstructive pulmonary disease): Discharge Sum: Summary Date and Time Date of admission: 10/08/20 10:23 Additional Data Attending physician: Leticia Kim PA-C
== END 2020-10-24 22:30 | disposition expired | DRG 207 ==
LOC: ANHED 11:56 → ANH3MEDSUR 16:24 → ANHICU 10-24 04:47 → ANH3MEDSUR 10-26 13:59 → ANHICU 10-26 13:59 → ANHIMU 10-26 13:59
PROVIDERS: Internal Medicine; Internal Medicine Nephrology; Nurse Practitioner; Physician Assistant; Admitting Provider Family Medicine; Emergency Provider General Practice; PCP Internal Medicine; Visit Provider Physician Assistant
DX: U07.1 COVID-19 (principal); J96.01 Acute respiratory failure with hypoxia; J12.89 Other viral pneumonia; J44.0 Chronic obstructive pulmonary disease with (acute) lower respiratory infection; J44.1 Chronic obstructive pulmonary disease with (acute) exacerbation; K51.90 Ulcerative colitis, unspecified, without complications; N17.8 Other acute kidney failure; I46.8 Cardiac arrest due to other underlying condition; E87.5 Hyperkalemia; I25.10 Atherosclerotic heart disease of native coronary artery without angina pectoris; E78.5 Hyperlipidemia, unspecified; I10 Essential (primary) hypertension; D63.8 Anemia in other chronic diseases classified elsewhere; D50.9 Iron deficiency anemia, unspecified; G43.109 Migraine with aura, not intractable, without status migrainosus; Z96.643 Presence of artificial hip joint, bilateral; Z86.73 Personal history of transient ischemic attack (TIA), and cerebral infarction without residual deficits; Z87.891 Personal history of nicotine dependence; Z85.828 Personal history of other malignant neoplasm of skin; Z85.51 Personal history of malignant neoplasm of bladder; Z95.5 Presence of coronary angioplasty implant and graft; Z90.710 Acquired absence of both cervix and uterus; D72.829 Elevated white blood cell count, unspecified; T38.0X5A Adverse effect of glucocorticoids and synthetic analogues, initial encounter; I48.91 Unspecified atrial fibrillation
CPT/HCPCS: 31500; 36415; 36430; 36569; 36600; 70450; 70553; 71045; 76775; 80048; 80053; 80074; 80076; 80202; 81001; 81050; 82375; 82436; 82550; 82570; 82607; 82728; 82746; 82805; 83036; 83050; 83540; 83550; 83615; 83735; 84100; 84156; 84300; 84460; 84484; 85014; 85018; 85025; 85027; 85049; 85380; 85384; 85610; 85730; 85999; 86140; 86706; 86900; 86901; 87040; 87070; 87086; 87205; 92950; 93005; 93306; 93880; 93970; 94002; 94003; 94640; 96365; 96367; 97161; 97165; 99291; A9270; A9577; C1751; C1752; C9113; G0257; G0378; J0131; J0171; J0282; J0692; J1100; J1650; J1815; J1940; J2597; J2704; J3010; J3370; J7030; J7040; J7050; J8540; P9047; P9059; Q5106